=== PATIENT | female | born 1955 | race Caucasian/White ===

== ENCOUNTER 2023-12-24 13:13 | Emergency (ER) | payer OTHER, SELFPAY ==
[2023-12-24 13:17] VITALS: BP 138/71
[2023-12-24] MEDS: NSS 500 IV (14:59)
[2023-12-24 15:02] LABS: Urine Albumin Negative (Neg - Trace); Urine Bilirubin Negative (Negative); Urine Character Clear (Clear); Urine Color Yellow; Urine Glucose Negative (Negative); Urine Ketone Negative (Negative); Urine Leukocyte 1+ (Negative); Urine Nitrite Negative (Negative); Urine Occult Blood Negative (Negative); Urine Specific Gravity 1.015 (<1.030); Urine Urobilinogen Negative (Neg - 1+)
[2023-12-24 15:10] LABS: % Basophils 0.5 % (0-2); % Eosinophils 3.5 % (0-6); % Immature Granulocytes 0.7 % (0-0.5); % Lymphocytes 14.3 % (20.5-51.1); Absolute Basophils 0.1 10^3/uL (0-0.2); Absolute Eosinophils 0.4 10^3/uL (0-0.7); Absolute Immature Granulocytes 0.1 10^3/uL (0-0.05); Absolute Lymphocytes 1.5 10^3/uL (1.2-3.4); Absolute Monocytes 0.6 10^3/uL (0.1-0.6); Absolute Neutrophils 7.7 10^3/uL (1.4-6.5); Hematocrit 36.1 % (37.0-47.0); Hemoglobin 12.3 g/dL (12.0-16.0); Mean Corp Hgb Conc. 34.1 g/dL (33.0-37.0); Mean Corpuscular Hgb 28.8 pg (27.0-31.0); Mean Corpuscular Volume 84.5 fL (81.0-99.0); Mean Platelet Volume 9.7 fL (7.4-10.4); Nucleated Red Blood Cells % 0 %; Platelet Count 284 10^3/uL (130-400); Red Blood Cell Count 4.27 10^6/uL (4.20-5.40); Red Cell Dist. Width 13.2 % (11.5-14.5); White Blood Cell Count 10.3 10^3/uL (4.8-10.8)
[2023-12-24] MEDS: ZOFRAN 4 MG IV (15:15)
[2023-12-24 15:23] LABS: ALT (SGPT) 19 U/L (0-35); AST (SGOT) 26 U/L (14-36); Albumin 4.3 g/dl (3.5-5.0); Alkaline Phosphatase 74 U/L (38-126); Blood Urea Nitrogen 23 mg/dl (7-17); Calcium 9.6 mg/dl (8.4-10.2); Carbon Dioxide 31 mmol/L (22-30); Chloride 102 mmol/L (98-107); Glucose 103 mg/dl (70-99); Lipase 128 U/L (23-300); Potassium 3.4 mmol/L (3.5-5.1); Sodium 138 mmol/L (135-145); Total Bilirubin 0.5 mg/dl (0.2-1.3); Total Protein 7.1 g/dl (6.3-8.2); eGFR > 60.00
[2023-12-24 15:26] LABS: Urine Squamous Cell 16-20 /LPF (Few)
[2023-12-24 15:27] LABS: Urine Bacteria Few (Negative); Urine Red Blood Cell 0-2 /HPF (0-2)
[2023-12-24 17:00] VITALS: BP 130/78
--- NOTE | 2023-12-24 19:19 | ED.GENMED ---
History of Present Illness
General
Chief Complaint: Abdominal Symptoms
Source: patient and family
Exam Limitations: none
Time Seen by Provider: 12/24/23 13:58
Nursing documentation reviewed up to this point in time: agreed with
Travel History
Have you had any contact with someone who has COVID-19?: No
Do you have any symptoms of coronavirus? Fever > 100 degrees, chills, cough, shortness of breath, sore throat, loss of taste or smell, muscle aches, or headache?: No
History of Present Illness
History of Present Illness:
68-year-old female with past medical history of intermittent diarrhea over the past 3 weeks also noted some blood in the bowel does have some abdominal pain. Denies fevers chills
Past History
Past History
ED Past Medical History: Asthma, HTN and Other (Learning disability, speech impediment)
ED Past Surgical History: Orthopedic
Social History
Tobacco: Non-smoker
Alcohol: None
Drug: None
Personal: Other (Lives with her sister)
Living: with family
Family History
Family History: Other (Father with coronary disease and CABG, father with carotid endarterectomy and stroke, family history of dementia)
Review of Systems
Review of Systems
Allergies reviewed?: Yes
All Other Systems: ROS reviewed and negative except as documented in HPI and ROS
Phy Exam
Physical Exam
Physical Exam:
GENERAL: Alert , in no apparent distress
EYE: pupils equal and reactive
NECK: Supple, no significant adenopathy.
ENT: o/p clr, mmm.
CARDIAC: Regular rate and rhythm .
LUNGS: Clear breath sounds bilaterally, no acute respiratory distress, no wheezes/rales/rhonchi
ABDOMEN: Very minimal abdominal pain to palpation otherwise abdomen soft rectal examination light brown stool vaguely positive for guaiac small external hemorrhoids
NEUROLOGICAL: Alert and oriented, no focal neuro deficits
SKIN: Warm and dry, skin intact.
MUSCULOSKELETAL: No edema, well perfused.
PSYCH: Normal and appropriate interaction.
Course
Orders/Labs/Results
Orders:
Orders
12/24/23 14:16
0.9% Sodium Chloride 500 ml [Nss] 500 ml IV BOLUS
Ondansetron Injectable [Zofran] 4 mg IV NOW STA
12/24/23 14:17
CT Abd/Pel (IV only)-DH only Urgent
Comment:
Reason For Exam: abd pain diarrhea
12/24/23 14:45
Urinalysis Reflex To Culture Urgent
Date Specimen was Collected: 12/24/23
Time Specimen was Collected: 14:43
Urine Microscopic Reflex Cult Urgent
Urine Culture Urgent
JUAN DIEGO Source: U
Specimen Description:
Date Specimen was Collected: 12/24/23
Time Specimen was Collected: 14:43
12/24/23 14:54
Complete Blood Count/With Diff Urgent
Comprehensive Metabolic Panel Urgent
Lipase Urgent
12/24/23 15:31
Stool Culture Urgent
JUAN DIEGO Source: Feces/Stool
Specimen Description:
Date Specimen was Collected: 12/24/23
Time Specimen was Collected: 15:29
Abnormal Lab Results
12/24/23 12/24/23
14:45 14:54
Hct 36.1 L %
(37.0-47.0)
Abs Immat Gran (auto) 0.1 H 10^3/uL
(0-0.05)
Absolute Neuts (auto) 7.7 H 10^3/uL
(1.4-6.5)
Immature Gran % 0.7 H %
(0-0.5)
Lymphocytes % 14.3 L %
(20.5-51.1)
Potassium 3.4 L mmol/L
(3.5-5.1)
Carbon Dioxide 31 H mmol/L
(22-30)
BUN 23 H mg/dl
(7-17)
Glucose 103 H mg/dl
(70-99)
Leukocyte Esterase Rfl 1+ A
(Negative)
Urine Bacteria (Reflex) Few A
(Negative)
12/24/23 14:54
12/24/23 14:54
Vital Signs
Initial and Last Documented VS:
Initial Vital Signs
Temp Pulse Resp BP Pulse Ox
97.9 F 74 20 138/71 98
12/24/23 13:17 12/24/23 13:17 12/24/23 13:17 12/24/23 13:17 12/24/23 13:17
Last Documented Vital Signs
Temp Pulse Resp BP Pulse Ox
97.9 F 74 20 138/71 98
12/24/23 13:17 12/24/23 13:17 12/24/23 13:17 12/24/23 13:17 12/24/23 13:17
MDM/Problems Addressed
MDM/Problems Addressed:
68-year-old female presenting to the emergency department with diarrhea intermittently for 3 weeks reported some blood in the toilet bowl today but stool here is light brown in color very minimal pain to palpation comfortable throughout ER stay
vital signs normal no white count labs unremarkable urinalysis without signs of infection CT scan without emergent findings but incidental findings were discussed with the patient and her sister advised for close outpatient follow-up and GI
follow-up return precautions given.
*Critical Care Note
Total Time (30-74mins, 75-104mins- exclusive of procedures): Not Applicable
ED Attending Note
-
Portions of this chart may have been created with voice recognition software.� Occasional wrong word or��sound alike� substitutions may have occurred due to the inherent limitations of voice recognition software.
Discharge Plan
Departure
Patient Disposition: Home (Routine Discharge)
Date of Disposition: 12/24/23
Time of Disposition: 19:21
Patient with high blood pressure during this ER visit?: No
Condition: Good
Covid-19: Not Applicable
Discharge Problem:
Abdominal pain
Instructions: Abdominal Pain
Prescriptions:
No Action
levothyroxine 100 MCG tablet
100 mcg PO DAILY
alprazolam 0.25 MG tablet
0.25 mg PO BID
Patient Comments:
09/01/2022: last filled 08/30/22, 60 tabs for 30 days from [facility]
fluticasone propionate 1 SPRAY spray,suspension
1 spray intranasal DAILY
cholecalciferol (vitamin D3) [Vitamin D3] 2,000 UNIT capsule
2,000 unit PO DAILY
ipratropium-albuterol 3 ML solution for nebulization
3 ml inhalation R BID
Patient Comments:
0.5mg/3mg/3ml
cetirizine 10 MG tablet
10 mg PO HS
budesonide 0.5 MG/2 ML suspension for nebulization
0.5 mg inhalation R BID
Patient Comments:
pt states years ago
montelukast 10 MG tablet
10 mg PO HS
albuterol sulfate 1 PUFF HFA aerosol inhaler
2 puff inhalation R Q4 PRN (Reason: sob/wheezing)
Patient Comments:
pt states years ago
ascorbic acid (vitamin C) [Vitamin C] 500 MG tablet
1,000 mg PO DAILY Qty: 0
Women's 50 Plus Multivitamin 1 EACH tablet
1 ea PO DAILY
aspirin 81 mg tablet,delayed release (DR/EC)
81 mg PO DAILY
docusate sodium 100 mg Capsule
200 mg PO HS
losartan 100 mg tablet
100 mg PO DAILY
rosuvastatin 5 mg tablet
5 mg PO DAILY
metronidazole 1 % gel
1 applic TOPICAL HS
Rx Instructions:
to rash on buttocks
nebivolol 2.5 mg tablet
2.5 mg PO DAILY
docusate sodium 100 MG capsule
300 mg PO DAILY
chlorthalidone 25 mg tablet
25 mg PO DAILY
amlodipine 10 mg tablet
10 mg PO DAILY
acetaminophen 325 mg Tablet
650 mg PO Q4HPRN PRN (Reason: fever >/= 100.4F, LOWE,mild pain) Qty: 0 0RF
dexamethasone 6 mg tablet
6 mg PO DAILY Qty: 7 0RF
cephalexin 500 mg capsule
500 mg PO TID Qty: 21 0RF
Referrals:
Silvia Valdez MD [Active] - Follow up in 5-7 days
Dennys Santos MD [Family Provider] -
Activity Restrictions/Additional Instructions:
You came to the emergency department today with concerns of GI symptoms and diarrhea.. You had a reassuring evaluation with no emergent findings you did have incidental findings that should be followed up with an outpatient MRI otherwise please
follow close with the primary care doctor and GI over the next week or so for reassessment if symptoms are ongoing. Return to the emergency department for any worsening, new or concerning symptoms.
Interventions
Interventions:
ED- Fall Risk Assessment Last Done: 12/24/23 15:37
ET-Qcdoeb-Uddnvkbfpf Assessment Last Done: 12/24/23 15:37
Discharge Date and Time
Print Language: LUXEMBOURGISH
[2023-12-24 19:55] VITALS: BP 138/69
== END 2023-12-24 19:57 | disposition home or self-care (01) ==
LOC: EMR 13:13
PROVIDERS: Physician Assistant; EMERGENCY PHYSICIAN Emergency Medicine; FAMILY PHYSICIAN Internal Medicine
DX: R10.9 Unspecified abdominal pain (principal)
CPT/HCPCS: 99285; 96374; 96361; 74177; 80053; 81003; 81015; 83690; 85025; 87045; 87046; 87086; 87427; Q9967

== ENCOUNTER 2024-01-02 15:31 | Inpatient (IN) | payer OTHER, SELFPAY ==
[2023-12-30 20:24] VITALS: BP 128/71
[2023-12-30 20:46] VITALS: BP 132/75
[2023-12-30 21:04] LABS: % Basophils 0.5 % (0-2); % Eosinophils 2.6 % (0-6); % Immature Granulocytes 0.3 % (0-0.5); % Lymphocytes 10.6 % (20.5-51.1); Absolute Basophils 0.1 10^3/uL (0-0.2); Absolute Eosinophils 0.3 10^3/uL (0-0.7); Absolute Lymphocytes 1.3 10^3/uL (1.2-3.4); Absolute Monocytes 0.7 10^3/uL (0.1-0.6); Absolute Neutrophils 9.6 10^3/uL (1.4-6.5); Hematocrit 36.2 % (37.0-47.0); Hemoglobin 12.4 g/dL (12.0-16.0); Mean Corp Hgb Conc. 34.3 g/dL (33.0-37.0); Mean Corpuscular Hgb 28.4 pg (27.0-31.0); Mean Platelet Volume 9.5 fL (7.4-10.4); Nucleated Red Blood Cells % 0 %; Platelet Count 310 10^3/uL (130-400); Red Blood Cell Count 4.36 10^6/uL (4.20-5.40); Red Cell Dist. Width 13.4 % (11.5-14.5)
[2023-12-30 21:39] LABS: ALT (SGPT) 19 U/L (0-35); AST (SGOT) 28 U/L (14-36); Alkaline Phosphatase 86 U/L (38-126); Blood Urea Nitrogen 24 mg/dl (7-17); Calcium 9.8 mg/dl (8.4-10.2); Carbon Dioxide 28 mmol/L (22-30); Chloride 100 mmol/L (98-107); Glucose 110 mg/dl (70-99); Lipase 142 U/L (23-300); Potassium 3.7 mmol/L (3.5-5.1); Sodium 136 mmol/L (135-145); Total Bilirubin 0.6 mg/dl (0.2-1.3); Total Protein 7.4 g/dl (6.3-8.2); eGFR > 60.00
[2023-12-30 21:45] LABS: Albumin 4.5 g/dl (3.5-5.0)
[2023-12-30] MEDS: OMNIPAQUE 50 ML PO (21:51)
[2023-12-30 21:53] LABS: Urine Albumin Negative (Neg - Trace); Urine Bilirubin Negative (Negative); Urine Character Clear (Clear); Urine Color Yellow; Urine Glucose Negative (Negative); Urine Ketone Negative (Negative); Urine Leukocyte 2+ (Negative); Urine Nitrite Negative (Negative); Urine Occult Blood Negative (Negative); Urine Specific Gravity 1.015 (<1.030); Urine Urobilinogen Negative (Neg - 1+)
[2023-12-30 22:04] LABS: Urine Bacteria Few (Negative); Urine Red Blood Cell 0-2 /HPF (0-2); Urine White Cell 30-40 /HPF (0-5)
[2023-12-31] VITALS (7 sets, daily range): BP systolic 119–147; BP diastolic 59–84; PULSE 77–84; BMI 35.4
--- NOTE | 2023-12-31 00:57 | ED.GENMED ---
History of Present Illness
General
Chief Complaint: Abdominal Symptoms
Source: patient
Exam Limitations: none
Time Seen by Provider: 12/30/23 20:28
Nursing documentation reviewed up to this point in time: agreed with
Travel History
Have you had any contact with someone who has COVID-19?: No
Do you have any symptoms of coronavirus? Fever > 100 degrees, chills, cough, shortness of breath, sore throat, loss of taste or smell, muscle aches, or headache?: No
History of Present Illness
History of Present Illness:
Patient to ED with increasing weakness. Daughter states patient has had diarrhea for the past 4 weeks. She was seen in ED 1 week ago for same. Discharged home with GI follow up. GI recommending abdominal MRI however this has not been scheduled
yet. Daughter states patient has become progressively weaker over the past 24 hours. Brought to ED for eval
Past History
Past History
ED Past Medical History: Asthma, HTN and Other (Learning disability, speech impediment)
ED Past Surgical History: Orthopedic
Social History
Tobacco: Non-smoker
Alcohol: None
Drug: None
Personal: Other (Lives with her sister)
Living: with family
Family History
Family History: Other (Father with coronary disease and CABG, father with carotid endarterectomy and stroke, family history of dementia)
Review of Systems
Review of Systems
Allergies reviewed?: Yes
All Other Systems: ROS reviewed and negative except as documented in HPI and ROS
Constitutional: Reports no symptoms
EENT: Reports no symptoms
Respiratory: Reports no symptoms
Cardiac: Reports no symptoms
ABD/GI: Reports abdominal pain (diffuse), nausea and diarrhea
: Reports no symptoms
Musculoskeletal: Reports no symptoms
Skin: Reports no symptoms
Neurological: Reports weakness
Psychiatric: Reports no symptoms
Phy Exam
General Physical Exam
General Presentation: mild distress
General age: appears stated age
General Skin: warm
General Habitus: normal
General Mental: alert
Cardiovascular Exam
Cardiovascular Exam: regular rate/rhythm and no edema
Pulmonary Exam
Pulmonary Exam: lungs clear and no respiratory distress
Gastrointestinal Exam
Gastrointestinal Exam: normal bowel sounds, soft, no organomegaly, no pulsatile mass and no cva tenderness
Palpation: generalized: Moderate tenderness
Musculoskeletal Exam
Musculoskeletal Exam: full ROM and neuro vasc intact
Skin Exam
Skin Exam: normal color, warm/dry and no rash
Psychiatric Exam
Psychiatric Exam: normal mood/affect
Course
Orders/Labs/Results
Orders:
Orders
12/30/23 20:59
Complete Blood Count/With Diff Urgent
Comprehensive Metabolic Panel Urgent
Lipase Urgent
12/30/23 21:31
Urinalysis Reflex To Culture Urgent
Date Specimen was Collected: 12/30/23
Time Specimen was Collected: 21:31
Urine Microscopic Reflex Cult Urgent
Urine Culture Urgent
JUAN DIEGO Source: U
Specimen Description:
Date Specimen was Collected: 12/30/23
Time Specimen was Collected: 21:31
12/30/23 21:45
Iohexol [Omnipaque] See Protocol PO NOW STA
12/30/23 23:07
STOOL [C difficile Antigen & Toxins] Urgent
JUAN DIEGO Source: Feces/Stool
Specimen Description:
Date Specimen was Collected: 12/30/23
Time Specimen was Collected: 23:05
12/31/23 00:00
CT Abd/pel W Iv And Oral Contr Urgent
Reason For Exam: pain, diarrhea
12/31/23 02:29
Admit/Transfer Patient As Directed
Co-Sign Provider:
Level of Care: Observation services
Assign to:: Medical/Surgical
Physician / Group: hospitalist
Diagnosis: colitis
Reason for Hospitalization: colitis
12/31/23 02:32
Code Status As Directed
Resuscitation Status: Full Code
12/31/23 02:38
Ipratropium/Albuterol Sulfate [Duoneb] 3 ml INH R NOW STA
12/31/23 03:24
Acetaminophen [Tylenol] 650 mg PO Q4HPRN PRN
Albuterol [ProAIR HFA INHALER] 2 puff INH R Q4 PRN
Ondansetron Injectable [Zofran] 4 mg IV Q6HPRN PRN
12/31/23 03:24
Stool Culture Routine
JUAN DIEGO Source: Feces/Stool
Specimen Description:
Activity As Directed
Activity Level: With Assistance
Vital Signs As Directed
Frequency: Per unit guidelines
Cpap [RESP] Routine
Patient to use own unit?: Yes
Set Pressure (cm H2O): 5
DX Deep Vein Thrombosis Video Routine
12/31/23 Breakfast
Regular
At Your Request: Full Participation
Does patient need a safe tray?: No
Levothyroxine [Synthroid] 100 mcg PO DAILY @ 0600
12/31/23 07:25
Basic Metabolic Panel IN AM
Complete Blood Count/No Diff IN AM
12/31/23 08:00
Alprazolam [Xanax] 0.25 mg PO BID
Amlodipine [Norvasc] 10 mg PO DAILY
Aspirin Low Dose EC [Aspir Low (Enteric Coated)] 81 mg PO DAILY
Budesonide [Pulmicort] 0.5 mg INH R BID
Chlorthalidone [Hygroton] 25 mg PO DAILY
Cholecalciferol (Vitamin D3) [VITAMIN D3 (cholecalciferol)] 50 mcg PO DAILY
Losartan [Cozaar] 100 mg PO DAILY
Nebivolol HCl [Bystolic] 2.5 mg PO DAILY
Rosuvastatin Calcium [Crestor] 5 mg PO DAILY
fluticasone propionate 1 spray NASAL DAILY
12/31/23 18:00
Enoxaparin Sodium [Lovenox] 40 mg SC QPM
12/31/23 22:00
Cetirizine HCl [Zyrtec] 10 mg PO HS
Montelukast Sodium [Singulair] 10 mg PO HS
Abnormal Lab Results
12/30/23 12/30/23
20:59 21:31
WBC 12.0 H 10^3/uL
(4.8-10.8)
Hct 36.2 L %
(37.0-47.0)
Absolute Neuts (auto) 9.6 H 10^3/uL
(1.4-6.5)
Absolute Monos (auto) 0.7 H 10^3/uL
(0.1-0.6)
Neutrophils % 80.0 H %
(42.2-75.2)
Lymphocytes % 10.6 L %
(20.5-51.1)
BUN 24 H mg/dl
(7-17)
Glucose 110 H mg/dl
(70-99)
Leukocyte Esterase Rfl 2+ A
(Negative)
Urine WBC (Reflex) 30-40 A /HPF
(0-5)
Urine Bacteria (Reflex) Few A
(Negative)
12/30/23 20:59
12/30/23 20:59
Vital Signs
Initial and Last Documented VS:
Initial Vital Signs
Temp Pulse Resp BP Pulse Ox
97.6 F 74 16 128/71 96
12/30/23 20:24 12/30/23 20:24 12/30/23 20:24 12/30/23 20:24 12/30/23 20:24
Last Documented Vital Signs
Temp Pulse Resp BP Pulse Ox
97.6 F 64 18 121/65 97
12/31/23 08:01 12/31/23 11:32 12/31/23 11:32 12/31/23 08:01 12/31/23 10:16
*Radiology
Radiology exam reviewed: radiology read reviewed ('moderated rectosigmoid wall thickening suggestive of colitis. Severely dilate mid and distal appendix sugestive of mucocele of appendix)
*Critical Care Note
Total Time (30-74mins, 75-104mins- exclusive of procedures): Not Applicable
Update Note
Update Note:
labs, CT results discussed with patient and sister. Dr. Tran notified of CT findings via tiger text. Will admit to hospitalist with surgery consult. She has had diarrhea x 4 weeks. Specimen sent tonight to r/o cdiff, results pending. Will hold
off on initiating antibiotics at this time. Afebrile
ED Attending Note
-
Portions of this chart may have been created with voice recognition software.� Occasional wrong word or��sound alike� substitutions may have occurred due to the inherent limitations of voice recognition software.
Discharge Plan
Departure
Patient Disposition: Admit
Date of Disposition: 12/31/23
Time of Disposition: 01:22
Presentation/result/management discussed w/ accepting MD/DO: Hospitalist
Condition: Fair
Covid-19: Not Applicable
Discharge Problem:
Colitis, Mucocele of appendix
Interventions
Interventions:
*Risk Screen - Suicide Last Done: 12/31/23 03:46
*General Assessment Last Done: 12/30/23 20:24
ED- Fall Risk Assessment Last Done: 12/30/23 21:37
*ED COVID-19 Vaccine History Last Done: 12/30/23 20:24
*Nursing Disposition Last Done: 12/31/23 03:22
TT-Ariafy-Fyioqkxeft Assessment Last Done: 12/30/23 21:37
Discharge Date and Time
Discharge Date/Time: 12/31/23 03:22
--- NOTE | 2023-12-31 02:12 | HPS.HSE ---
Family Physician
-
Family Physician: Dennys Santos
Chief Complaint
-
Diarrhea and abdominal pain
History of Present Illness
Disease a 68-year-old female with past medical history of intellectual developmental delay, hypertension, hyperlipidemia, obesity, OKSANA on CPAP, asthma presenting to the emergency department with worsening episode of diarrhea.
Patient is a fairly poor historian but sister was at the bedside and a primary caregiver reports history of diarrhea for about 1 month. They report intermittent episodes of watery diarrhea about 2-3 times a day. The color is described as brown
without mucus. Occasionally found to have signs of blood in the commode. No melena. Patient is without nausea or vomiting. She is without any fevers or chills. No known sick contacts and no recent travels. She has been on azithromycin during
the winter for prevention of recurrent pneumonia. She denies any recent hospitalizations. She has no prior colonoscopies. Denies family history of inflammatory bowel disease or colon cancer. She was seen by GI (Dr. Connor) 2 weeks ago and a
colonoscopy as been scheduled for January 25. She is also been requested to get stool sample for analysis. Patient had a significant episode of diarrhea x 1 today and felt weak and tired afterwards. She was brought to the emergency department after
discussing with the GI doctor. She denies any dysuria, hematuria, urinary frequency urgency. She does have chronic stress incontinence.
On arrival in the emergency department she was afebrile, she was normotensive and in no acute distress. He had macrocytosis to 12,000 with normal CBC and blood count. Electrolytes and renal function are within normal limits. CT of the abdomen
pelvis showed rectosigmoid colitis versus proctitis. There was also an incidental finding of enlarged dilated appendix with calcifications that was previously seen and suggestive of mucocele. UA with positive WBCs and few bacteria.
Medical History
Past Medical History
Past Medical History: Reports HTN, Hypothyroidism and Other
Additional Past Medical History:
HLD
IDD
OKSANA on CPAP
Asthma/
[id number]-[id number] deficiency
IBS
Gout
GERD
Past Surgical History: Reports None
Social History
Unable to obtain full social history at this time due to: Other (Intellectual developmental delay)
Tobacco: Non-smoker
Alcohol: None
Drug: None
Personal: Single
Living: With Family
Employment: Disabled
Family History
Family History: Hypertension
Allergies / Home Medications
Allergies reflects when Allergies were last updated in [facility].
Home Medications with original date entered in [facility]
Allergy/Medication List:
Allergies
Allergy/AdvReac Type Severity Reaction Status Date / Time
amoxicillin [From Augmentin] Allergy Unknown Verified 12/24/23 13:16
citric acid* Allergy Rash Verified 12/24/23 13:16
clarithromycin [From Biaxin] Allergy Unknown Verified 12/24/23 13:16
clavulanic acid Allergy Unknown Verified 12/24/23 13:16
[From Augmentin]
codeine Allergy Unknown Verified 12/24/23 13:16
lisinopril Allergy Anaphylaxis, Verified 12/24/23 13:16
Angioedema
Penicillins Allergy SEE BELOW Verified 12/24/23 13:16
Tetracyclines Allergy Unknown Verified 12/24/23 13:16
tomato [Tomato] Allergy Hives Verified 12/24/23 13:16
Home Medications
levothyroxine 100 mcg tablet 100 mcg PO DAILY Thyroid 02/10/13
alprazolam 0.25 mg tablet 0.25 mg PO BID Mental Health/Anxiety 11/15/17
cholecalciferol (vitamin D3) 50 mcg (2,000 unit) capsule (Vitamin D3) 2,000 unit PO DAILY Supplement 11/15/17
fluticasone propionate 50 mcg/actuation nasal spray,suspension 1 spray intranasal DAILY Lung/breathing issues 11/15/17
budesonide 0.5 mg/2 mL suspension for nebulization 0.5 mg inhalation R BID Lung/breathing issues 10/19/19
cetirizine 10 mg tablet 10 mg PO HS Allergies 10/19/19
ipratropium 0.5 mg-albuterol 3 mg (2.5 mg base)/3 mL nebulization soln 3 ml inhalation R BID Lung/breathing issues 10/19/19
montelukast 10 mg tablet 10 mg PO HS Lung/breathing issues 10/19/19
albuterol sulfate 90 mcg/actuation aerosol inhaler 2 puff inhalation R Q4 PRN sob/wheezing 07/10/20
ascorbic acid (vitamin C) 500 mg tablet (Vitamin C) 1,000 mg PO DAILY Supplement ##0 07/10/20
nycvgdbl-tbo-omdmp ac 400 mcg-calcium carb 500 mg-vit K1 20 mcg tablet (Women's 50 Plus Multivitamin) 1 ea PO DAILY Supplement 05/12/21
amlodipine 10 mg tablet 10 mg PO DAILY Blood pressure 09/01/22
aspirin 81 mg tablet,delayed release 81 mg PO DAILY Blood clot prevention/tx 09/01/22
chlorthalidone 25 mg tablet 25 mg PO DAILY Blood pressure 09/01/22
docusate sodium 100 mg capsule 200 mg PO HS Constipation 09/01/22
docusate sodium 100 mg capsule 300 mg PO DAILY Constipation 09/01/22
losartan 100 mg tablet 100 mg PO DAILY Blood pressure 09/01/22
metronidazole 1 % topical gel 1 applic topical HS Skin issues 09/01/22
nebivolol 2.5 mg tablet 2.5 mg PO DAILY Heart disease/condition 09/01/22
rosuvastatin 5 mg tablet 5 mg PO DAILY High cholesterol 09/01/22
acetaminophen 325 mg tablet 650 mg (2 x 325 mg) PO Q4HPRN PRN fever >/= 100.4F, LOWE,mild pain #0 tabs 09/04/22
cephalexin 500 mg capsule 500 mg PO TID #21 caps 09/04/22
dexamethasone 6 mg tablet 6 mg PO DAILY #7 tabs 09/04/22
Review of Systems
-
History Source: Patient and Family
Constitutional: Reports No Symptoms
EENT: Reports No Symptoms
Respiratory: Reports No Symptoms
Cardiac: Reports No Symptoms
Abdomen/GI: Reports Diarrhea
: Reports No Symptoms
Musculoskeletal: Reports No Symptoms
Skin: Reports No Symptoms
Neurological: Reports No Symptoms
Endocrine: Reports No Symptoms
Hematologic/Lymphatic: Reports No Symptoms
Psych: Reports No Symptoms
Physical Exam
Vital Signs
Vital Signs
Temp Pulse Resp BP Pulse Ox
97.6 F 66 13 132/75 94
12/30/23 20:24 12/31/23 00:15 12/31/23 00:15 12/30/23 20:46 12/31/23 00:15
Physical Exam
General: Well Developed, Well Nourished and Comfortable
HEENT: NormoCephalic, Moist mucous membranes, Atraumatic and PERRLA
Respiratory: Clear
Cardiac: S1/S2 and Regular Rhythm
Breast: Deferred by me
GI: Soft, Non Tender, Normal Bowel Sounds and Distended
Rectal: Deferred by Provider
Genito-urinary: No costovertebral tender
Musculoskeletal: No Clubbing, No Cyanosis and No Edema
Skin: Warm and Rash
Neuro: Awake, Alert and Oriented
Hematologic/Lymphatic: No Lymphadenopathy
Psych: Calm
Laboratory Results
-
12/30/23 20:59
12/30/23 20:59
Laboratory Results
Total Bilirubin 0.6 mg/dl (0.2-1.3) 12/30/23 20:59
AST 28 U/L (14-36) 12/30/23 20:59
ALT 19 U/L (0-35) 12/30/23 20:59
Alkaline Phosphatase 86 U/L (38-126) 12/30/23 20:59
Lipase 142 U/L (23-300) 12/30/23 20:59
Data Reviewed
-
CT Scan: Report Reviewed by me
Lab Data: Labs Reviewed by me
Old Records: Reviewed
Impression/Plan
-
IMPRESSION:
PLAN:
1. Diarrhea - Subacute (1 month) episode of intermittent watery diarrhea. Non-toxic appearing today. Euvolemic. Rectosigmoid colitis seen on CT. Infectious vs inflammatory diarrhea. Chronic azithromycin use over the winter but no admissions.
No diarrhea in ED.
- admit to observation
- check cdiff and stool culture
- well appearing and euvolemic, no iv fluids, no abx
- if cdiff & stool culture is negative, GI consultation
2. Appendix mucocele - No signs of acute appendicitis. No abdominal pain nausea/vomiting
- awaiting comment from colorectal surgery, no indication for urgent consultation
3. Positive u/a but no acute symptoms
- hold off on any abx treatment.
4. HTN
- continue patients home losartan, chlorthalidone, nebivolol and amlodipine
5. Asthma
- inhaled steroids and nebs per home regimen
- montelukast
6. OKSANA
- cpap hs
DVT PPX - lovenox sq
Full code
[2023-12-31] MEDS: DUONEB 3 ML INH (02:43)
--- NOTE | 2023-12-31 05:48 | PTCARENOTE ---
Patient arrived on unit @0320 via stretcher from ED, ambulate to bed. Patient AAOx2, sister in room with patient, denies any pain or discomfort. Med rec completed, skin assessment completed, oriented to unit, call stringer within reach.
[2023-12-31] MEDS: SYNTHROID 100 MCG PO (06:18)
[2023-12-31] MEDS: PULMICORT 0.5 MG INH ×2 (07:33→19:27)
[2023-12-31] MEDS: ProAIR HFA INHALER 2 PUFF INH (07:39)
[2023-12-31] MEDS: NORVASC 10 MG PO (07:51)
[2023-12-31] MEDS: XANAX 0.25 MG PO ×2 (07:51→20:14)
[2023-12-31] MEDS: BYSTOLIC 2.5 MG PO (07:51)
[2023-12-31] MEDS: ASPIR LOW (ENTERIC COATED) 81 MG PO (07:51)
[2023-12-31] MEDS: VITAMIN D3 (cholecalciferol) 50 MCG PO (07:51)
[2023-12-31] MEDS: Hygroton 25 MG PO (07:51)
[2023-12-31] MEDS: CRESTOR 5 MG PO (07:51)
[2023-12-31] MEDS: COZAAR 100 MG PO (07:51)
[2023-12-31 08:19] LABS: Hematocrit 35.4 % (37.0-47.0); Hemoglobin 11.7 g/dL (12.0-16.0); Mean Corp Hgb Conc. 33.1 g/dL (33.0-37.0); Mean Corpuscular Hgb 28.1 pg (27.0-31.0); Mean Corpuscular Volume 85.1 fL (81.0-99.0); Mean Platelet Volume 10.2 fL (7.4-10.4); Platelet Count 306 10^3/uL (130-400); Red Blood Cell Count 4.16 10^6/uL (4.20-5.40); Red Cell Dist. Width 13.5 % (11.5-14.5); White Blood Cell Count 8.8 10^3/uL (4.8-10.8)
[2023-12-31 08:54] LABS: Blood Urea Nitrogen 21 mg/dl (7-17); Calcium 9.8 mg/dl (8.4-10.2); Carbon Dioxide 28 mmol/L (22-30); Chloride 100 mmol/L (98-107); Estimated Creatinine Clearance 54 ml/min; Glucose 100 mg/dl (70-99); Potassium 3.8 mmol/L (3.5-5.1); Sodium 137 mmol/L (135-145); eGFR > 60.00
--- NOTE | 2023-12-31 09:52 | CON.CRS ---
Consultation
-
Date/Time Consultation Requested: 12/31/23
Requesting Provider: Emy
Performing Provider: Rubin Tran
Reason for Consultation: Colitis ischemic eval
Medical History
-
Chief Complaint: Diarrhea
History of Present Illness:
Ms Guo is a 68 yo female with a history of HTN and intellectual disability who lives with her sister and is seen in evaluation today at bedside with her Aunt and sister. She presents with fatigue and one month history of diarrhea. At baseline, her
sister reports that she is normally constipated and takes multiple laxatives until this past month when she developed persistent diarrhea, occasionally blood tinged. She has been following with Dr. Connor as an outpatient with colonoscopy (her
first) scheduled in mid January as well as MRI in work up for abdominal mass first noted on imaging in 2021. She has had cologuard screening in the past which was reportedly negative. 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
respiratory infections although C-diff on admission is negative. She has reported weight loss of 10lbs this month and has been maintained mostly on the BRAT diet with Imodium prn. She had one episode of nausea last week prompting a visit to the ER
and has had intermittent complaints of mild abdominal pain bilaterally. Although she gestures to the left side when indicating pain she is mildly tender to both lower quadrants.
Past Medical History
Past Medical History: HTN and Hypercholesterolemia
Past Surgical History: Orthopedic (left TSA, right TKA)
Social History
Tobacco: Non-Smoker
Alcohol: None
Living: With Family
Employment: Disabled
Family History
Family History: Reviewed & Not Pertinent
Allergies / Home Medications
Allergy/AdvReac Type Severity Reaction Status Date / Time
amoxicillin [From Augmentin] Allergy Unknown Verified 12/24/23 13:16
citric acid* Allergy Rash Verified 12/24/23 13:16
clarithromycin [From Biaxin] Allergy Unknown Verified 12/24/23 13:16
clavulanic acid Allergy Unknown Verified 12/24/23 13:16
[From Augmentin]
codeine Allergy Unknown Verified 12/24/23 13:16
lisinopril Allergy Anaphylaxis, Verified 12/24/23 13:16
Angioedema
Penicillins Allergy SEE BELOW Verified 12/24/23 13:16
Tetracyclines Allergy Unknown Verified 12/24/23 13:16
tomato [Tomato] Allergy Hives Verified 12/24/23 13:16
�Medication �Instructions �Recorded �Confirmed �Type
levothyroxine 100 mcg tablet 100 mcg PO DAILY Thyroid 02/10/13 12/31/23 History
alprazolam 0.25 mg tablet 0.25 mg PO BID Mental 11/15/17 12/31/23 History
Health/Anxiety
cholecalciferol (vitamin D3) 50 2,000 unit PO DAILY Supplement 11/15/17 12/31/23 History
mcg (2,000 unit) capsule (Vitamin
D3)
fluticasone propionate 50 1 spray intranasal DAILY 11/15/17 12/31/23 History
mcg/actuation nasal Lung/breathing issues
spray,suspension
budesonide 0.5 mg/2 mL suspension 0.5 mg inhalation R BID 10/19/19 12/31/23 History
for nebulization Lung/breathing issues
cetirizine 10 mg tablet 10 mg PO HS Allergies 10/19/19 12/31/23 History
ipratropium 0.5 mg-albuterol 3 mg 3 ml inhalation R BID 10/19/19 12/31/23 History
(2.5 mg base)/3 mL nebulization Lung/breathing issues
soln
montelukast 10 mg tablet 10 mg PO HS Lung/breathing issues 10/19/19 12/31/23 History
albuterol sulfate 90 mcg/actuation 2 puff inhalation R Q4 PRN 07/10/20 12/31/23 History
aerosol inhaler sob/wheezing
ascorbic acid (vitamin C) 500 mg 1,000 mg PO DAILY Supplement ##0 07/10/20 12/31/23 History
tablet (Vitamin C)
sdwmexax-btc-jnhzc ac 400 1 ea PO DAILY Supplement 05/12/21 12/31/23 History
mcg-calcium carb 500 mg-vit K1 20
mcg tablet (Women's 50 Plus
Multivitamin)
amlodipine 10 mg tablet 10 mg PO DAILY Blood pressure 09/01/22 12/31/23 History
aspirin 81 mg tablet,delayed 81 mg PO DAILY Blood clot 09/01/22 12/31/23 History
release prevention/tx
chlorthalidone 25 mg tablet 25 mg PO DAILY Blood pressure 09/01/22 12/31/23 History
docusate sodium 100 mg capsule 200 mg PO HS Constipation 09/01/22 12/31/23 History
docusate sodium 100 mg capsule 300 mg PO DAILY Constipation 09/01/22 12/31/23 History
losartan 100 mg tablet 100 mg PO DAILY Blood pressure 09/01/22 12/31/23 History
metronidazole 1 % topical gel 1 applic topical HS Skin issues 09/01/22 12/31/23 History
nebivolol 2.5 mg tablet 2.5 mg PO DAILY Heart 09/01/22 12/31/23 History
disease/condition
rosuvastatin 5 mg tablet 5 mg PO DAILY High cholesterol 09/01/22 12/31/23 History
acetaminophen 325 mg tablet 650 mg (2 x 325 mg) PO Q4HPRN PRN 09/04/22 12/31/23 Rx
fever >/= 100.4F, LOWE,mild pain #0
tabs
cephalexin 500 mg capsule 500 mg PO TID #21 caps 09/04/22 12/31/23 Rx
dexamethasone 6 mg tablet 6 mg PO DAILY #7 tabs 09/04/22 12/31/23 Rx
dicyclomine 20 mg tablet 20 mg PO BID 12/31/23 12/31/23 History
Review of Systems
-
History Source: Patient and Family
All other systems: Negative unless noted
A 10 point review of systems was completed, and was negative except as per HPI.
Physical Exam
Vital Signs
Temp 97.6 F 12/31/23 08:01
Pulse 79 12/31/23 08:01
Resp Rate 16 12/31/23 08:01
Blood pressure 121/65 12/31/23 08:01
SaO2 97 12/31/23 08:01
12/30/23 12/31/23 01/01/24
06:59 06:59 06:59
Actual Weight 76.771 kg
Body Mass Index (BMI) 35.4
Lab Results / Allergies
12/31/23 07:25
12/31/23 07:25
WBC 8.8 10^3/uL (4.8-10.8) 12/31/23 07:25
Hgb 11.7 g/dL (12.0-16.0) L 12/31/23 07:25
Hct 35.4 % (37.0-47.0) L 12/31/23 07:25
Plt Count 306 10^3/uL (130-400) 12/31/23 07:25
Abs Immat Gran (auto) 0.0 10^3/uL (0-0.05) 12/30/23 20:59
Neutrophils % 80.0 % (42.2-75.2) H 12/30/23 20:59
Allergy/AdvReac Type Severity Reaction Status Date / Time
amoxicillin [From Augmentin] Allergy Unknown Verified 12/24/23 13:16
citric acid* Allergy Rash Verified 12/24/23 13:16
clarithromycin [From Biaxin] Allergy Unknown Verified 12/24/23 13:16
clavulanic acid Allergy Unknown Verified 12/24/23 13:16
[From Augmentin]
codeine Allergy Unknown Verified 12/24/23 13:16
lisinopril Allergy Anaphylaxis, Verified 12/24/23 13:16
Angioedema
Penicillins Allergy SEE BELOW Verified 12/24/23 13:16
Tetracyclines Allergy Unknown Verified 12/24/23 13:16
tomato [Tomato] Allergy Hives Verified 12/24/23 13:16
Physical Exam
General: Well Developed, Well Nourished and No Apparent Distress
HEENT: Moist Mucous Membranes
Respiratory: Non Labored Respirations
GI: Soft and Tender (mildly tender to the lower quadrants)
Skin: Warm and Dry
Neuro: Awake, Alert and AO x 3
Psych: Calm
Data Reviewed
-
CT Scan: Image Personally Visualized and interpreted, Report Reviewed by me, Discussed with Physician, Discussed with Patient and Discussed with Family
Labs: Labs Reviewed by me, Discussed with Physician, Discussed with Patient and Discussed with Family
Old Records: Reviewed
Assessment / Plan
-
68 yo female presenting with ongoing diarrhea x1 month with unplanned weight loss and increasing fatigue. Undergoing GI work up as an outpatient with colonoscopy planned in mid January and MRI for pelvic mass work up. Prior Cologuard study reportedly
negative remotely but has never had a colonoscopy. Unplanned weight loss of 10 lbs in the last few weeks noted. Stool studies thus far negative. Leukocytosis present on admission now resolved. CT imaging with several abnormal findings including
concern for proctocolitis and appendicial mucocele with adjacent calcified mass abutting the uterus and bladder with pelvic lymphadenopathy. Inflammatory etiology suspected with possible underlying malignant pathology. Low suspicion for ischemic
colitis given imaging and exam.
--Recommend GI consultation, known to Dr. Connor
--Will check tumor markers: CEA, AFP, Ca125
--Ok to continue regular diet from surgical perspective as she is tolerating this
--No emergent surgery planned today although may need future surgical intervention pending outpatient diagnostic work up
[2023-12-31] MEDS: VENTOLIN NEBULES 2.5 MG INH ×2 (11:31→19:27)
--- NOTE | 2023-12-31 14:53 | CON.GI ---
Consultation
-
Date/Time Consultation Requested: 12/31/2023
Date/Time Consultation Performed: 12/31/2023
Requesting Provider: Dr. De La O
Performing Provider: Dr. Murillo
Reason for Consultation: Diarrhea
Medical History
Chief Complaint / HPI
Chief Complaint: Diarrhea
History of Present Illness:
68-year-old female with history of hypertension, asthma, learning disability presenting with ongoing diarrhea symptoms for last month, was in the emergency room 12/24/2023 for similar episode-diarrhea and some trace amounts of blood in the stool,
rectal exam, light brown stool with trace guaiac positive, stool culture at that time was negative, she was hemodynamically stable and was asked to see GI as an outpatient. Blood work consistent for hemoglobin 12.3, normal white blood cell count,
potassium 3.4. Stool culture was negative, no C. difficile was checked. She was then seen by Dr. Griffin as an outpatient and was scheduled to have a colonoscopy on the . She continued to have diarrhea and came back to the emergency room. In
the ER, C. difficile testing was negative, labs otherwise unremarkable. She did have CT scan of the abdomen and pelvis with IV and oral contrast that showed moderate to severe acute proctocolitis on the sigmoid colon and rectum, increased since
. 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 Large 6.4 similar calcified mass in the right lower quadrant causing extrinsic mass effect, rule out
leukemia versus eccentric tumor. She was supposed to get an outpatient MRI for this but was waiting for the prior authorization.
2 months ago, she was dealing with episodes of pneumonia with cough and wheezing, was put on azithromycin 3 times a week for about 4 months and stopped on December 13 and she was feeling better. Her baseline bowel pattern was slightly on the
constipation side, she was taking 4 Colace a day and send I would immediately be effective. No pushing, straining, blood in the stool. No abdominal pain, nausea, vomiting, heartburn or trouble swallowing.
Recently she has been having about 5 bowel movements are watery with some intermittent blood, no nocturnal episodes. Some mucus and some blood. Loss of 9 pounds in the last 2 weeks.
She was seen by colorectal surgery for For appendiceal mucocele, no plan for urgent surgery.
She has learning disability and lives with her sister and 11 month old baby living in same house (sister's grandkid) had loose stools same time. No new meds. Not travel.
�������Has been doing Cologuard time 3 years ago. She attempted a colonoscopy 15-20 years ago but became so dehydrated had to go to ER and never attempted to again.
�������Sister is her POA (usually both patient/sister sign consent).
�������CT in ER 12/2023:
�������1).There is a 5.8 cm calcified mesenteric mass in the upper mid pelvis which is seen in retrospect on the booth supervisor view of the 12/15/2021 CT of the lumbar spine has not significantly changed suggesting that it is benign. It is associated with a
tubular rim calcified lesion in the right hemipelvis. 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
�������There is a similar-appearing 5.7 cm calcified mass in the left adnexa.
�������Nonemergent MRI may be useful for further evaluation.
�������2).Imaging for bowel pathology is limited by the lack of enteric contrast. If there is clinical suspicion for bowel pathology, this study could be repeated with enteric contrast.
�������3).There is an 8 mm pulmonary nodule at the posterior lateral left lower lobe which is stable. With image 38 series 4 10/02/2021 examination suggesting that it is benign
�������4). Multilevel lumbar degenerative disc disease.
Past Medical History
Past Medical History: Asthma, HTN, Hypothyroidism and Other (Learning disability)
Past Surgical History: Other (Shoulder replacement and right knee placement)
Social History
Tobacco: Non-Smoker
Alcohol: None
Family History
Family History: Reviewed & Not Pertinent
Allergies / Home Medications
Allergy/AdvReac Type Severity Reaction Status Date / Time
amoxicillin [From Augmentin] Allergy Unknown Verified 12/24/23 13:16
citric acid* Allergy Rash Verified 12/24/23 13:16
clarithromycin [From Biaxin] Allergy Unknown Verified 12/24/23 13:16
clavulanic acid Allergy Unknown Verified 12/24/23 13:16
[From Augmentin]
codeine Allergy Unknown Verified 12/24/23 13:16
lisinopril Allergy Anaphylaxis, Verified 12/24/23 13:16
Angioedema
Penicillins Allergy SEE BELOW Verified 12/24/23 13:16
Tetracyclines Allergy Unknown Verified 12/24/23 13:16
tomato [Tomato] Allergy Hives Verified 12/24/23 13:16
�Medication �Instructions �Recorded
levothyroxine 100 mcg tablet 100 mcg PO DAILY Thyroid 02/10/13
alprazolam 0.25 mg tablet 0.25 mg PO BID Mental 11/15/17
Health/Anxiety
cholecalciferol (vitamin D3) 50 2,000 unit PO DAILY Supplement 11/15/17
mcg (2,000 unit) capsule (Vitamin
D3)
fluticasone propionate 50 1 spray intranasal DAILY 11/15/17
mcg/actuation nasal Lung/breathing issues
spray,suspension
budesonide 0.5 mg/2 mL suspension 0.5 mg inhalation R BID 10/19/19
for nebulization Lung/breathing issues
cetirizine 10 mg tablet 10 mg PO HS Allergies 10/19/19
ipratropium 0.5 mg-albuterol 3 mg 3 ml inhalation R BID 10/19/19
(2.5 mg base)/3 mL nebulization Lung/breathing issues
soln
montelukast 10 mg tablet 10 mg PO HS Lung/breathing issues 10/19/19
albuterol sulfate 90 mcg/actuation 2 puff inhalation R Q4 PRN 07/10/20
aerosol inhaler sob/wheezing
ascorbic acid (vitamin C) 500 mg 1,000 mg PO DAILY Supplement ##0 07/10/20
tablet (Vitamin C)
qmswqftd-opx-tohew ac 400 1 ea PO DAILY Supplement 05/12/21
mcg-calcium carb 500 mg-vit K1 20
mcg tablet (Women's 50 Plus
Multivitamin)
amlodipine 10 mg tablet 10 mg PO DAILY Blood pressure 09/01/22
aspirin 81 mg tablet,delayed 81 mg PO DAILY Blood clot 09/01/22
release prevention/tx
chlorthalidone 25 mg tablet 25 mg PO DAILY Blood pressure 09/01/22
docusate sodium 100 mg capsule 200 mg PO HS Constipation 09/01/22
docusate sodium 100 mg capsule 300 mg PO DAILY Constipation 09/01/22
losartan 100 mg tablet 100 mg PO DAILY Blood pressure 09/01/22
metronidazole 1 % topical gel 1 applic topical HS Skin issues 09/01/22
nebivolol 2.5 mg tablet 2.5 mg PO DAILY Heart 09/01/22
disease/condition
rosuvastatin 5 mg tablet 5 mg PO DAILY High cholesterol 09/01/22
acetaminophen 325 mg tablet 650 mg (2 x 325 mg) PO Q4HPRN PRN 09/04/22
fever >/= 100.4F, LOWE,mild pain #0
tabs
cephalexin 500 mg capsule 500 mg PO TID #21 caps 09/04/22
dexamethasone 6 mg tablet 6 mg PO DAILY #7 tabs 09/04/22
dicyclomine 20 mg tablet 20 mg PO BID 12/31/23
Review of Systems
-
All other systems: A 12 pt ROS was Negative except as stated above in HPI
Vital Signs
Temp Pulse Resp BP Pulse Ox
97.6 F 64 18 121/65 97
12/31/23 08:01 12/31/23 11:32 12/31/23 11:32 12/31/23 08:01 12/31/23 10:16
Physical Exam
Exam
General: Well Developed
HEENT: Normocephalic
Respiratory: Clear
Cardiac: S1/S2 and Regular Rhythm
GI: Soft, Non Distended, Normal Bowel Sounds and Other (Some discomfort bilateral lower quadrants without any guarding or rigidity)
Results
WBC 8.8 10^3/uL (4.8-10.8) 12/31/23 07:25
Hgb 11.7 g/dL (12.0-16.0) L 12/31/23 07:25
Hct 35.4 % (37.0-47.0) L 12/31/23 07:25
MCV 85.1 fL (81.0-99.0) 12/31/23 07:25
Plt Count 306 10^3/uL (130-400) 12/31/23 07:25
Absolute Neuts (auto) 9.6 10^3/uL (1.4-6.5) H 12/30/23 20:59
Sodium 137 mmol/L (135-145) 12/31/23 07:25
Potassium 3.8 mmol/L (3.5-5.1) 12/31/23 07:25
Chloride 100 mmol/L (98-107) 12/31/23 07:25
Carbon Dioxide 28 mmol/L (22-30) 12/31/23 07:25
BUN 21 mg/dl (7-17) H 12/31/23 07:25
Creatinine 0.9 mg/dL (0.6-1.0) 12/31/23 07:25
Calcium 9.8 mg/dl (8.4-10.2) 12/31/23 07:25
Total Bilirubin 0.6 mg/dl (0.2-1.3) 12/30/23 20:59
AST 28 U/L (14-36) 12/30/23 20:59
ALT 19 U/L (0-35) 12/30/23 20:59
Alkaline Phosphatase 86 U/L (38-126) 12/30/23 20:59
Lipase 142 U/L (23-300) 12/30/23 20:59
Diagnostic Image Results:
Prior GI Procedures:
EGD:
Colonoscopy:
Assessment / Plan
-
68-year-old female with history of hypertension, high cholesterol, hypothyroidism, learning disability, history of pneumonia status post antibiotic use up until December 2023 presenting with diarrhea in the last 1 month, stool cultures negative
previously, CT scan of the abdomen and pelvis with contrast showing severe proctocolitis also appendiceal mucocele apart from calcified mass in the right lower quadrant.
-Diarrhea and severe proctocolitis
Rule out infectious versus inflammatory versus other
No previous colonoscopies or Cologuard negative as per patient in the past
Stool C. difficile negative, culture, fecal calprotectin and white count pending
Plan for colonoscopy 01/02/2024 as patient already had breakfast and lunch today. Will keep her on clear liquid diet with MiraLAX prep
Treatment based on the pathology results
Noted tumor markers ordered by surgery to rule out neuroendocrine tumor findings of appendiceal mucocele Versus other
Eventual pelvic MRI after colonoscopy for the pelvic mass that was noted on CT scan.
Will follow
-
-
Thank you for consultation and allowing me to participate in the patient's care. Please call the summer sessions director GI physician during the after hours with any questions or concerns.
--- NOTE | 2023-12-31 16:45 | W.PN.HOSP.TC ---
Today's Communication/Plan
-
Colonoscopy as per GI
Okay for Regular Diet today, Clear Liquid Diet tomorrow
No surgery needed at this time
Assessment / Plan
Assessment / Plan
Physical Exam
General: Not in acute distress
HEENT: Normocephalic, Moist mucous membranes
Respiratory: Clear to Auscultation Bilaterally
Cardiac: S1/S2 and Regular Rhythm
GI: Soft, Normal Bowel Sounds and Distended. Mild tenderness in the lower quadrants.
Musculoskeletal: No Cyanosis and No Edema
Skin: Warm and Rash
Neuro: Awake, Alert and Oriented
Psych: Calm

Assessment/Plan
#Diarrhea - Subacute (1 month) episode of intermittent watery diarrhea.
#Severe proctocolitis
- Was undergoing GI work up as an outpatient with colonoscopy planned in mid January and MRI for pelvic mass work up.
- As per surgery, 'CT imaging with several abnormal findings including concern for proctocolitis and appendicial mucocele with adjacent calcified mass abutting the uterus and bladder with pelvic lymphadenopathy. Inflammatory etiology suspected with
possible underlying malignant pathology. Low suspicion for ischemic colitis given imaging and exam.'
- Tumor markers were ordered by surgery to rule out neuroendocrine tumor findings of appendiceal mucocele Versus other
- Pelvic MRI after colonoscopy for pelvic mass on CT imaging
- Consulted GI after discussion with surgery -- patient is known to Dr. Connor
- Colonoscopy to help figure out the diagnosis
#Appendix mucocele
- Not acute appendicitis
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
- Rumor markers including CEA, CA125, AFP, chromogranin a, serotonin
#Positive u/a but no acute symptoms
- hold off on any abx treatment.
#HTN
- continue patients home losartan, chlorthalidone, nebivolol and amlodipine
#Asthma
- inhaled steroids and nebs per home regimen
- montelukast
#OKSANA
- cpap hs
DVT PPX - lovenox sq
Full code
Anticipated Discharge: > 48 hours
Subjective/Interval History
-
Date of Service: December 31, 2023
Patient was seen and examined. She reported some lower abdominal pain, but otherwise denied any other new significant symptoms.
Objective Data
-
Labs:
Laboratory Results
12/31/23
07:25
WBC 8.8
Hgb 11.7 L
Hct 35.4 L
Plt Count 306
Sodium 137
Potassium 3.8
Chloride 100
Carbon Dioxide 28
BUN 21 H
Creatinine 0.9
Glucose 100 H
Calcium 9.8
Vital Signs:
Vital Signs
Temp Pulse Resp BP Pulse Ox
98.0 F 77 14 119/59 98
12/31/23 15:28 12/31/23 15:28 12/31/23 15:28 12/31/23 15:28 12/31/23 15:28
[2023-12-31] MEDS: LOVENOX 40 MG SC (17:11)
[2023-12-31] MEDS: ZYRTEC 10 MG PO (21:09)
[2023-12-31] MEDS: SINGULAIR 10 MG PO (21:09)
[2024-01-01 06:19] LABS: Hematocrit 31.8 % (37.0-47.0); Hemoglobin 10.7 g/dL (12.0-16.0); Mean Corp Hgb Conc. 33.6 g/dL (33.0-37.0); Mean Corpuscular Hgb 28.7 pg (27.0-31.0); Mean Corpuscular Volume 85.3 fL (81.0-99.0); Mean Platelet Volume 9.9 fL (7.4-10.4); Platelet Count 265 10^3/uL (130-400); Red Blood Cell Count 3.73 10^6/uL (4.20-5.40); Red Cell Dist. Width 13.4 % (11.5-14.5); White Blood Cell Count 7.2 10^3/uL (4.8-10.8)
[2024-01-01] MEDS: SYNTHROID 100 MCG PO (06:19)
[2024-01-01 06:47] LABS: ALT (SGPT) 16 U/L (0-35); AST (SGOT) 23 U/L (14-36); Albumin 3.7 g/dl (3.5-5.0); Alkaline Phosphatase 74 U/L (38-126); Blood Urea Nitrogen 18 mg/dl (7-17); Calcium 9.2 mg/dl (8.4-10.2); Carbon Dioxide 31 mmol/L (22-30); Chloride 99 mmol/L (98-107); Estimated Creatinine Clearance 60 ml/min; Glucose 94 mg/dl (70-99); Potassium 3.2 mmol/L (3.5-5.1); Sodium 134 mmol/L (135-145); Total Bilirubin 0.6 mg/dl (0.2-1.3); Total Protein 6.4 g/dl (6.3-8.2); eGFR > 60.00
[2024-01-01 07:00] VITALS: BP 115/56
[2024-01-01] MEDS: Hygroton 25 MG PO (07:40)
[2024-01-01] MEDS: PULMICORT 0.5 MG INH ×2 (07:40→19:14)
[2024-01-01] MEDS: VENTOLIN NEBULES 2.5 MG INH ×2 (07:40→19:14)
[2024-01-01] MEDS: CRESTOR 5 MG PO (07:40)
[2024-01-01] MEDS: VITAMIN D3 (cholecalciferol) 50 MCG PO (07:40)
[2024-01-01] MEDS: COZAAR 100 MG PO (07:40)
[2024-01-01] MEDS: BYSTOLIC 2.5 MG PO (07:40)
[2024-01-01] MEDS: NORVASC 10 MG PO (07:40)
[2024-01-01] MEDS: XANAX 0.25 MG PO ×2 (07:40→20:04)
[2024-01-01] MEDS: ASPIR LOW (ENTERIC COATED) 81 MG PO (07:40)
--- NOTE | 2024-01-01 09:10 | W.PN.CRS1 ---
Today's Communication / Plan
-
colonoscopy tomorrow per GI
eventual surgery
Assessment/Plan
-
68-year-old female with PMH of intellectual disability, HTN, HLD, elevated BMI, OKSANA on CPAP, asthma, stress incontinence, alpha-1 antitrypsin deficiency, hypothyroid, IBS, severe PNA in [facility] in 08/2022, recent PNA with chronic suppresive Azithromycin
from Aug 2023 (stopped 2 weeks ago) who recently presented to the ED on 12/[address] for bloody diarrhea. A CT at that time identified a mesenteric mass. Patient was discharged with follow-up with Dr. Connor, who saw her on 12/17. Dr. Connor sent an
infectious workup with stool studies and C. difficile, ordered an MRI pelvis and scheduled her for colonoscopy to rule out polyps/masses and IBD. However, the patient continued to have numerous BMs with blood and yesterday was noted to be
particularly fatigued, so sister, who is POA, brought her to the ED for evaluation. In the ED, WBC 12.0, afebrile, VSS, CT showing moderate to severe rectosigmoid inflammation with likely reactive pelvic lymphadenopathy, appendix dilated to 2.9 cm
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
Plan:
1. Will plan to schedule surgery once the patient undergoes testing/symptoms improve. This may be done on an outpatient basis.
2. She is scheduled for a colonoscopy with GI tomorrow, on clears and undergoing a prep today.
3. Patient will need MRI pelvis to workup pelvic mass further; ok to obtain outpatient.
4. Tumor markers are pending.
5. Will follow.
Subjective Data
Subjective Data
Date of Service: January 01, 2024
Patient states she has pain 'all across her abdomen' but it is mild. She has no nausea. She is 'a little hungry'. She has no other complaints.
Objective Data
-
Vital Signs
Temp Pulse Resp BP Pulse Ox
97.9 F 68 16 115/56 95
01/01/24 07:00 01/01/24 07:46 01/01/24 07:46 01/01/24 07:40 01/01/24 07:53
Intake & Output
12/31/23 01/01/24 01/02/24
06:59 06:59 06:59
Intake Total 960 / 960
Balance 960 / 960
Intake:
Oral fluids 960 / 960
Other:
Number of approximated MODERATE 1 2
amounts of urine
Lab Results
01/01/24 06:00
01/01/24 06:00
Physical Exam
-
General: No Acute Distress and AOx3
Abdomen: Soft, Non Distended and Tender (mild - LLQ)
Skin: Warm and Dry
--- NOTE | 2024-01-01 09:51 | W.PN.HOSP.TC ---
Today's Communication/Plan
-
see A/P
Assessment / Plan
Assessment / Plan
A/P:
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
# Severe proctocolitis
Was undergoing GI work up outpatient with colonoscopy planned in mid January, and MRI for pelvic mass work up.
Per surgery, 'CT imaging with several abnormal findings including concern for proctocolitis and appendicial mucocele with adjacent calcified mass abutting the uterus and bladder with pelvic lymphadenopathy. Inflammatory etiology suspected with
possible underlying malignant pathology. Low suspicion for ischemic colitis given imaging and exam.'
Tumor markers AFP, CEA, CA 125, serotonin, Chromogranin A ordered by surgery, results pending
For C scope 01/01
Check Pelvic MRI after colonoscopy for pelvic mass w/u on CT imaging
CRS on board, considering surgery after C scope to evaluate the appendix mucocele/calcified mass in the pelvis
# Appendix mucocele
# Calcified mass in the pelvis
CT AP noted Large 6.4 cm calcified mass in the right lower quadrant adjacent to the appendiceal mucocele, uterus, and urinary bladder causing mild extrinsic mass effect, ddx include uterine leiomyoma or calcified mesenteric tumor.
Tumor markers AFP, CEA, CA 125, serotonin, Chromogranin A ordered by surgery, results pending
CRS on board, considering surgery after C scope to evaluate the appendix mucocele/calcified mass in the pelvis
# Asymptomatic bacteruria
hold off on any abx treatment for now
# HTN
continue home losartan, chlorthalidone, nebivolol and amlodipine
# Asthma, likely mild persistent
Cont LINE OPERATOR inhaled steroids and nebs
Cont LINE OPERATOR montelukast
# OKSANA
cpap hs
DVT PPX - lovenox sq
Full code
DW pt's aunt at bedside
total time spent 51 min
Anticipated Discharge: > 48 hours
Subjective/Interval History
-
Date of Service: January 01, 2024
Objective Data
-
Labs:
Laboratory Results
01/01/24
06:00
WBC 7.2
Hgb 10.7 L
Hct 31.8 L
Plt Count 265
Sodium 134 L
Potassium 3.2 L
Chloride 99
Carbon Dioxide 31 H
BUN 18 H
Creatinine 0.8
Glucose 94
Calcium 9.2
Total Bilirubin 0.6
AST 23
ALT 16
Alkaline Phosphatase 74
Vital Signs:
Vital Signs
Temp Pulse Resp BP Pulse Ox
36.6 C 68 16 115/56 95
01/01/24 07:00 01/01/24 07:46 01/01/24 07:46 01/01/24 07:40 01/01/24 07:53
I&O
12/31/23 01/01/24 01/02/24
06:59 06:59 06:59
Intake Total 960 / 960
Balance 960 / 960
Review of Systems
-
Abdomen/GI: Reports Diarrhea (subacute)
Physical Exam
-
General: Well Developed, Well Nourished, No Apparent Distress, Comfortable and Conversant
HEENT: Normocephalic and Atraumatic
Respiratory: Clear to Auscultation and Non Labored Respirations; Negative Accessory Resp Muscle Use
Cardiac: Regular Rhythm and S1/S2; Negative Murmur
GI: Soft and Distended
Musculoskeletal: No Clubbing
Neuro: Awake
Psych: Calm and Intact Judgement/Insight
Data Reviewed
-
CT Scan: Report Reviewed by me
Labs: Labs Reviewed by me
[2024-01-01] MEDS: KCL 270 MEQ IV (10:35)
--- NOTE | 2024-01-01 12:43 | CM ---
Met with pt and her cousin Vita at bedside
Pt lives with her sister and family in a 2 story home
Pt has an intellectual disability. Ambulates without difficulty, performs adl's without assist, assist with cooking, home management skills
DME - denies
SNF - denies past hx
HH - has had [facility] in past
Will have ride when d/c'ed
PCP - Dr Dennys Santos
Pharm - [facility]
Plan - anticipate home with family no needs when medically ready
--- NOTE | 2024-01-01 12:49 | W.PN.GI.CBS2 ---
Addendum entered and electronically signed by Katya Murillo MD 01/01/24 18:19:
I saw and examined the patient.
The PRINCIPAL BIOINFORMATICS SPECIALIST or PA's note was reviewed and I agree with the note.
Comment: Significant diarrhea with CT scan showing severe proctosigmoiditis
Stool studies so far negative
For colonoscopy tomorrow to evaluate the left colon and also to evaluate the cecal area for appendiceal mucocele that was noted on imaging.
Eventual pelvic MRI
Monitor electrolytes and replete
Will follow
Original Note:
Today's Communication / Plan
-
plan for colonoscopy 01/01
c-diff, stool cx neg
reviewed with family for prep today will start early as may have difficulty with taking-- discussed if unable to finish to complete in early AM as family assist with prep
reviewed choice of prep but per family prefer Colyte as concern for any not sure if she will tolerate Gatorade
may need additional mag citrate or enema if unable to complete
AFP, CEA, CA 125, serotonin, chromogranin A, fecal calprotectin pending
Eventual pelvic MRI after colonoscopy for the pelvic mass that was noted on CT scan.
K 3.2 s/p repletions per hospitalist
appreciate colorectal input possible appe/ileocoectomy pending findings
Assessment / Plan
-
68-year-old female with history of hypertension, high cholesterol, hypothyroidism, learning disability, history of pneumonia status post antibiotic use up until December 2023 presenting with diarrhea in the last 1 month, stool cultures negative
previously, CT scan of the abdomen and pelvis with contrast showing severe proctocolitis also appendiceal mucocele apart from calcified mass in the right lower quadrant. No previous colonoscopies as difficulty with prep in past. Prior Cologuard
negative as per patient in the past
12/31/23 CT Abd/pel W Iv And Oral Contr
1. MODERATE to SEVERE ACUTE PROCTOCOLITIS involving the sigmoid colon and rectum which has increased since 12/24/2023. Diagnostic possibilities are (1) acute infectious colitis or (2) inflammatory bowel disease (either ulcerative colitis or Crohn's
disease).
2. Mild to moderate pericolonic lymphadenopathy in the pelvis which is likely reactive and less likely metastatic in etiology.
3. 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
4. Large 6.4 cm calcified mass in the right lower quadrant adjacent to the appendiceal mucocele, uterus, and urinary bladder causing mild extrinsic mass effect. Diagnostic possibilities are (1) a large calcified pedunculated uterine leiomyoma or
(2) a calcified mesenteric tumor.
5. 3.9 cm calcified leiomyoma in the uterine fundus.
6. Mild hepatomegaly.
7. Small hiatal hernia.
8. Severe multilevel discogenic degenerative disease and facet joint arthrosis in the lumbar spine.
-Diarrhea and severe proctocolitis
-CT with concern for appendiceal mucocele
-calcified mass RLQ
-PNA with abx til December 2023
-hypokalemia
other medical problems:
-HTN
-hypercholesterolemia
-hypothyroidism
-learning disability
-asthma
-OKSANA
PLAN:
plan for colonoscopy 01/01
c-diff, stool cx neg
reviewed with family for prep today will start early as may have difficulty with taking-- discussed if unable to finish to complete in early AM as family assist with prep
reviewed choice of prep but per family prefer Colyte as concern for any not sure if she will tolerate Gatorade
may need additional mag citrate or enema if unable to complete
AFP, CEA, CA 125, serotonin, chromogranin A, fecal calprotectin pending
Eventual pelvic MRI after colonoscopy for the pelvic mass that was noted on CT scan.
K 3.2 s/p repletions per hospitalist
appreciate colorectal input possible appe/ileocoectomy pending findings
Will follow
Subjective
Subjective
Date of Service: January 01, 2024
clears then NPO in AM for colonoscopy very small amount of liquid stool
Objective
Data Reviewed
Laboratory Data:
Laboratory Results
01/01/24 06:00
01/01/24 06:00
Laboratory Results
Magnesium 2.0 mg/dl (1.6-2.3) 01/01/24 06:00
Total Bilirubin 0.6 mg/dl (0.2-1.3) 01/01/24 06:00
AST 23 U/L (14-36) 01/01/24 06:00
ALT 16 U/L (0-35) 01/01/24 06:00
Alkaline Phosphatase 74 U/L (38-126) 01/01/24 06:00
Lipase 142 U/L (23-300) 12/30/23 20:59
Vital Signs and I&O:
Vital Signs
Temp Pulse Resp BP Pulse Ox
97.9 F 68 16 115/56 95
01/01/24 07:00 01/01/24 07:46 01/01/24 07:46 01/01/24 07:40 01/01/24 07:53
I&O
12/31/23 01/01/24 01/02/24
06:59 06:59 06:59
Intake Total 960 / 960
Balance 960 / 960
Physical Exam
Physical Exam
HEENT: Anicteric
Cardiology: Normal Sinus Rhythm
GI: Soft, Non Distended and Non Tender
Extremities: No Edema
Neuro: Non Focal
[2024-01-01] MEDS: NULYTELY SOLUTION 4 LITERS PO (14:55)
[2024-01-01 15:00] VITALS: BP 124/71
[2024-01-01] MEDS: NON-FORMULARY ITEM 1 UNIT PO (16:13)
[2024-01-01] MEDS: LOVENOX 40 MG SC (17:28)
[2024-01-01] MEDS: MYLICON 320 MG PO (18:08)
[2024-01-01 20:03] LABS: CA 125 7.8 U/mL (0-35)
[2024-01-01 20:07] LABS: AFP Male/Tumor Marker 1.22 ng/ml
[2024-01-01] MEDS: ZYRTEC 10 MG PO (22:47)
[2024-01-01] MEDS: SINGULAIR 10 MG PO (22:47)
[2024-01-01 23:26] VITALS: BP 111/56
[2024-01-02] VITALS (9 sets, daily range): BP systolic 15–134; BP diastolic 58–76
[2024-01-02 05:58] LABS: Hematocrit 33.3 % (37.0-47.0); Hemoglobin 11.1 g/dL (12.0-16.0); Mean Corp Hgb Conc. 33.3 g/dL (33.0-37.0); Mean Corpuscular Hgb 28.2 pg (27.0-31.0); Mean Corpuscular Volume 84.5 fL (81.0-99.0); Mean Platelet Volume 9.8 fL (7.4-10.4); Platelet Count 268 10^3/uL (130-400); Red Blood Cell Count 3.94 10^6/uL (4.20-5.40); Red Cell Dist. Width 13.5 % (11.5-14.5); White Blood Cell Count 7.6 10^3/uL (4.8-10.8)
[2024-01-02 06:31] LABS: Blood Urea Nitrogen 12 mg/dl (7-17); Calcium 9.6 mg/dl (8.4-10.2); Carbon Dioxide 26 mmol/L (22-30); Chloride 102 mmol/L (98-107); Estimated Creatinine Clearance 69 ml/min; Glucose 90 mg/dl (70-99); Magnesium 2.1 mg/dl (1.6-2.3); Potassium 3.9 mmol/L (3.5-5.1); Sodium 138 mmol/L (135-145); eGFR > 60.00
[2024-01-02] MEDS: MYLICON 320 MG PO (07:13)
[2024-01-02] MEDS: VENTOLIN NEBULES 2.5 MG INH ×2 (07:34→19:34)
[2024-01-02] MEDS: PULMICORT 0.5 MG INH ×2 (07:34→19:34)
[2024-01-02] MEDS: CRESTOR 5 MG PO (09:03)
[2024-01-02] MEDS: COZAAR 100 MG PO (09:03)
[2024-01-02] MEDS: SYNTHROID PO (09:03)
[2024-01-02] MEDS: BYSTOLIC 2.5 MG PO (09:04)
[2024-01-02] MEDS: XANAX 0.25 MG PO ×2 (09:04→19:53)
[2024-01-02] MEDS: Hygroton 25 MG PO (09:04)
[2024-01-02] MEDS: NORVASC 10 MG PO (09:04)
[2024-01-02] MEDS: ASPIR LOW (ENTERIC COATED) 81 MG PO (09:04)
[2024-01-02] MEDS: VITAMIN D3 (cholecalciferol) 50 MCG PO (09:05)
--- NOTE | 2024-01-02 10:20 | W.PN.HOSP.TC ---
Today's Communication/Plan
-
see A/P
Assessment / Plan
Assessment / Plan
A/P:
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
# Severe proctocolitis
Was undergoing GI work up outpatient with colonoscopy planned in mid January, and MRI for pelvic mass work up.
Per surgery, 'CT imaging with several abnormal findings including concern for proctocolitis and appendicial mucocele with adjacent calcified mass abutting the uterus and bladder with pelvic lymphadenopathy. Inflammatory etiology suspected with
possible underlying malignant pathology. Low suspicion for ischemic colitis given imaging and exam.'
Tumor markers AFP/CEA/CA 125 are unrevealing
Serotonin, Chromogranin A are pending
For C scope 01/01
Check Pelvic MRI after colonoscopy for pelvic mass w/u on CT imaging
CRS on board, considering surgery after C scope to evaluate the appendix mucocele/calcified mass in the pelvis
# Appendix mucocele
# Calcified mass in the pelvis
CT AP noted Large 6.4 cm calcified mass in the right lower quadrant adjacent to the appendiceal mucocele, uterus, and urinary bladder causing mild extrinsic mass effect, ddx include uterine leiomyoma or calcified mesenteric tumor.
Tumor markers AFP, CEA, CA 125, serotonin, Chromogranin A ordered by surgery, results pending
CRS on board, considering surgery after C scope to evaluate the appendix mucocele/calcified mass in the pelvis
# Asymptomatic bacteruria
hold off on any abx treatment for now
# HTN
continue home losartan, chlorthalidone, nebivolol and amlodipine
# Asthma, likely mild persistent
Cont EDUCATIONAL DIAGNOSTICIAN inhaled steroids and nebs
Cont EDUCATIONAL DIAGNOSTICIAN montelukast
# OKSANA
cpap hs
DVT PPX - lovenox sq
Full code
DW pt's sister at bedside
Anticipated Discharge: > 48 hours
Subjective/Interval History
-
Date of Service: January 02, 2024
Objective Data
-
Labs:
Laboratory Results
01/02/24
05:28
WBC 7.6
Hgb 11.1 L
Hct 33.3 L
Plt Count 268
Sodium 138
Potassium 3.9
Chloride 102
Carbon Dioxide 26
BUN 12
Creatinine 0.7
Glucose 90
Calcium 9.6
Vital Signs:
Vital Signs
Temp Pulse Resp BP Pulse Ox
36.9 C 87 16 134/70 96
01/02/24 08:00 01/02/24 08:00 01/02/24 08:00 01/02/24 08:00 01/02/24 08:00
I&O
01/01/24 01/02/24 01/03/24
06:59 06:59 06:59
Intake Total 960 / 960 960 / 960
Balance 960 / 960 960 / 960
Review of Systems
-
Abdomen/GI: Reports Diarrhea (subacute)
Physical Exam
-
General: Well Developed, Well Nourished, No Apparent Distress, Comfortable and Conversant
HEENT: Normocephalic and Atraumatic
Respiratory: Clear to Auscultation and Non Labored Respirations; Negative Accessory Resp Muscle Use
Cardiac: Regular Rhythm and S1/S2; Negative Murmur
GI: Soft and Distended
Musculoskeletal: No Clubbing
Neuro: Awake
Psych: Calm and Intact Judgement/Insight
Data Reviewed
-
CT Scan: Report Reviewed by me
Labs: Labs Reviewed by me
--- NOTE | 2024-01-02 14:13 | CM ---
Case management following for d/c planning
Pt for colonoscopy today
will need pelvic MRI after colonoscopy
CM will follow for d/c needs
Plan - anticipate home - needs tbd
[2024-01-02] MEDS: LOVENOX 40 MG SC (17:44)
[2024-01-02] MEDS: ZYRTEC 10 MG PO (21:11)
[2024-01-02] MEDS: SINGULAIR 10 MG PO (21:11)
[2024-01-03] MEDS: SYNTHROID 100 MCG PO (06:17)
[2024-01-03 06:30] LABS: Hematocrit 32.2 % (37.0-47.0); Hemoglobin 10.8 g/dL (12.0-16.0); Mean Corp Hgb Conc. 33.5 g/dL (33.0-37.0); Mean Corpuscular Hgb 28.9 pg (27.0-31.0); Mean Corpuscular Volume 86.1 fL (81.0-99.0); Mean Platelet Volume 10.2 fL (7.4-10.4); Platelet Count 257 10^3/uL (130-400); Red Blood Cell Count 3.74 10^6/uL (4.20-5.40); Red Cell Dist. Width 13.6 % (11.5-14.5); White Blood Cell Count 8.2 10^3/uL (4.8-10.8)
--- NOTE | 2024-01-03 06:50 | W.PN.GI.CBS2 ---
Today's Communication / Plan
-
See assessment and plan for details.
Assessment / Plan
-
1. Colitis: Left-sided, endoscopically more consistent with UC, though stercoral colitis could also be possible given her severe constipation previously. There are some deeper ulcerations in the rectum and CMV is less likely though still possible.
She has no diarrhea overnight and exam is benign. At this point will await biopsies and assess her clinical course today. If recurrent significant diarrhea then would likely start a course of Uceris as well as Lialda on discharge.
2. Abnormal CT scan: with significant appendiceal mucocele as well as pelvic mass which seems to be associated, also with some compression of the bladder. Will check MRI of the pelvis today, colorectal surgery is following.
Subjective
Subjective
Date of Service: January 03, 2024
Patient feeling well, still some mild left-sided discomfort, no bowel movements overnight, no vomiting, tolerating diet.
Objective
Data Reviewed
Laboratory Data:
Laboratory Results
01/03/24 05:47
Laboratory Results
Magnesium 2.1 mg/dl (1.6-2.3) 01/02/24 05:28
Total Bilirubin 0.6 mg/dl (0.2-1.3) 01/01/24 06:00
AST 23 U/L (14-36) 01/01/24 06:00
ALT 16 U/L (0-35) 01/01/24 06:00
Alkaline Phosphatase 74 U/L (38-126) 01/01/24 06:00
Lipase 142 U/L (23-300) 12/30/23 20:59
Vital Signs and I&O:
Vital Signs
Temp Pulse Resp BP Pulse Ox
97.5 F 69 16 106/58 96
01/03/24 03:41 01/02/24 23:20 01/02/24 23:20 01/02/24 23:20 01/02/24 23:20
I&O
01/01/24 01/02/24 01/03/24
06:59 06:59 06:59
Intake Total 960 / 960 960 / 960 700 / 700
Balance 960 / 960 960 / 960 700 / 700
Physical Exam
Physical Exam
General: NAD
Abdomen: normal bowel sounds, soft, minimal left-sided tenderness, no masses or bruits, no ascites
[2024-01-03 06:53] LABS: Blood Urea Nitrogen 12 mg/dl (7-17); Calcium 9.3 mg/dl (8.4-10.2); Carbon Dioxide 27 mmol/L (22-30); Chloride 103 mmol/L (98-107); Estimated Creatinine Clearance 69 ml/min; Glucose 93 mg/dl (70-99); Magnesium 1.9 mg/dl (1.6-2.3); Potassium 3.4 mmol/L (3.5-5.1); Sodium 136 mmol/L (135-145); eGFR > 60.00
[2024-01-03 07:00] VITALS: BP 113/65
[2024-01-03] MEDS: PULMICORT 0.5 MG INH ×2 (07:25→19:29)
[2024-01-03] MEDS: VENTOLIN NEBULES 2.5 MG INH ×2 (07:25→19:29)
[2024-01-03] MEDS: BYSTOLIC 2.5 MG PO (07:56)
[2024-01-03] MEDS: COZAAR 100 MG PO (07:57)
[2024-01-03] MEDS: ASPIR LOW (ENTERIC COATED) 81 MG PO (07:57)
[2024-01-03] MEDS: VITAMIN D3 (cholecalciferol) 50 MCG PO (07:57)
[2024-01-03] MEDS: Hygroton 25 MG PO (07:57)
[2024-01-03] MEDS: NORVASC 10 MG PO (07:57)
[2024-01-03] MEDS: CRESTOR 5 MG PO (07:57)
[2024-01-03] MEDS: XANAX 0.25 MG PO ×2 (07:57→20:27)
--- NOTE | 2024-01-03 08:54 | W.PN.CRS1 ---
Today's Communication / Plan
-
F/u MRI
Assessment/Plan
-
68-year-old female with PMH of intellectual disability, HTN, HLD, elevated BMI, OKSANA on CPAP, asthma, stress incontinence, alpha-1 antitrypsin deficiency, hypothyroid, IBS, severe PNA in [place] in 08/2022, recent PNA with chronic suppresive Azithromycin
from Aug 2023 (stopped 2 weeks ago) who recently presented to the ED on 12/[address] for bloody diarrhea. A CT at that time identified a mesenteric mass. Patient was discharged with follow-up with Dr. Connor, who saw her on 12/17. Dr. Connor sent an
infectious workup with stool studies and C. difficile, ordered an MRI pelvis and scheduled her for colonoscopy to rule out polyps/masses and IBD. However, the patient continued to have numerous BMs with blood and yesterday was noted to be
particularly fatigued, so sister, who is POA, brought her to the ED for evaluation. In the ED, WBC 12.0, afebrile, VSS, CT showing moderate to severe rectosigmoid inflammation with likely reactive pelvic lymphadenopathy, appendix dilated to 2.9 cm
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
S/p cscope 01/01 - inflammation in rectum, sigmoid and descending; biospied, c/f UC; may require maintenance meds
�Appendieal mass and pelvic mass
-f/u MRI pelvis
-tumor markers (CEA, CA125, AFP) normal; pending chromogranin a
-If gynecologic malignancy suspected, would recommend consult to Dr. Escalante at that time; not necessary right now
� Acute proctocolitis, likely UC
-sent CRP and fecal calprotectin
-stool studies/cdiff negative
-appreciate GI consult; may need maintenance meds if no improvement in symptoms
-f/u biopsy
�Okay for DVT PPx
� Diet per primary
Subjective Data
Subjective Data
Date of Service: January 03, 2024
No overnight events.
Pain persistent on left hemiabdomen, improved with pain medicine.
Denies nausea/vomiting. Tolerating diet.
No bowel function since colonoscopy. +voiding
Pt is OOB.
Objective Data
-
Vital Signs
Temp Pulse Resp BP Pulse Ox
98.1 F 74 18 113/65 98
01/03/24 07:00 01/03/24 07:56 01/03/24 07:32 01/03/24 07:56 01/03/24 07:32
Intake & Output
01/02/24 01/03/24 01/04/24
06:59 06:59 06:59
Intake Total 960 / 960 700 / 700
Balance 960 / 960 700 / 700
Intake:
Oral fluids 960 / 960 700 / 700
Other:
Number of approximated MODERATE 3 3
amounts of urine
Number of unmeasured liquid
stools
Rectum 3
Lab Results
01/03/24 05:47
01/03/24 05:47
Physical Exam
-
General: No Acute Distress and AOx3
HEENT: Grossly Normal
Abdomen: Soft, Non Distended and Tender (Mildly tender in the LLQ to LUQ, no rebound or guarding)
Skin: Warm and Dry
[2024-01-03 09:27] LABS: C-Reactive Protein < 5.00 mg/L (0.0-10.00)
--- NOTE | 2024-01-03 09:58 | W.PN.HOSP.TC ---
Today's Communication/Plan
-
see A/P
Assessment / Plan
Assessment / Plan
A/P:
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
# Severe proctocolitis
Was undergoing GI work up outpatient with colonoscopy planned in mid January, and MRI for pelvic mass work up.
Per surgery, 'CT imaging with several abnormal findings including concern for proctocolitis and appendicial mucocele with adjacent calcified mass abutting the uterus and bladder with pelvic lymphadenopathy. Inflammatory etiology suspected with
possible underlying malignant pathology. Low suspicion for ischemic colitis given imaging and exam.'
Tumor markers AFP/CEA/CA 125 are unrevealing.
Serotonin, Chromogranin A are pending
s/p C scope 01/01: noted Left sided colitis possible UC though stercoral colitis also possible given her severe constipation previously. Noted deeper ulcerations in the rectum and CMV is less likely though still possible.
Follow colonic biopsies.
CRP negative, follow fecal calprotectin
Check Pelvic MRI for pelvic mass w/u noted on CT imaging
CRS on board, considering surgery after C scope to evaluate the appendix mucocele/calcified mass in the pelvis
# Appendix mucocele
# Calcified mass in the pelvis
CT AP noted Large 6.4 cm calcified mass in the right lower quadrant adjacent to the appendiceal mucocele, uterus, and urinary bladder causing mild extrinsic mass effect, ddx include uterine leiomyoma or calcified mesenteric tumor.
Tumor markers AFP/CEA/CA 125 are unrevealing
Serotonin, Chromogranin A are pending
CRS on board, considering surgery after C scope to evaluate the appendix mucocele/calcified mass in the pelvis
# Asymptomatic bacteruria
hold off on any abx treatment for now
# HTN
continue home losartan, chlorthalidone, nebivolol and amlodipine
# Asthma, likely mild persistent
Cont NEUROLOGY PHYSICIAN inhaled steroids and nebs
Cont NEUROLOGY PHYSICIAN montelukast
# OKSANA
cpap hs
DVT PPX - lovenox sq
Full code
DW pt's aunt at bedside
Anticipated Discharge: 24 - 48 hours
Subjective/Interval History
-
Date of Service: January 03, 2024
Objective Data
-
Labs:
Laboratory Results
01/03/24
05:47
WBC 8.2
Hgb 10.8 L
Hct 32.2 L
Plt Count 257
Sodium 136
Potassium 3.4 L
Chloride 103
Carbon Dioxide 27
BUN 12
Creatinine 0.7
Glucose 93
Calcium 9.3
Vital Signs:
Vital Signs
Temp Pulse Resp BP Pulse Ox
36.7 C 74 18 113/65 98
01/03/24 07:00 01/03/24 07:56 01/03/24 07:32 01/03/24 07:56 01/03/24 07:32
I&O
01/02/24 01/03/24 01/04/24
06:59 06:59 06:59
Intake Total 960 / 960 700 / 700
Balance 960 / 960 700 / 700
Review of Systems
-
Abdomen/GI: Reports Abdominal Pain (chronic, L sided ); Denies Diarrhea (none since C scope prep)
Physical Exam
-
General: Well Developed, Well Nourished, No Apparent Distress, Comfortable and Conversant
HEENT: Normocephalic and Atraumatic
Respiratory: Clear to Auscultation and Non Labored Respirations; Negative Accessory Resp Muscle Use
Cardiac: Regular Rhythm and S1/S2; Negative Murmur
GI: Soft
Musculoskeletal: No Clubbing
Neuro: Awake
Psych: Calm and Intact Judgement/Insight
Data Reviewed
-
CT Scan: Report Reviewed by me
Labs: Labs Reviewed by me
[2024-01-03] MEDS: KCL 40 MEQ PO (10:59)
--- NOTE | 2024-01-03 13:28 | WOUNDNOTE ---
WO RN note: RT asked for this typewriter assembly and parts inspector to evaluate patient's facial rash (rosacea worsened) from the cpap mask. Patient stated using her own Metronidazole cream .75% and is has improved as per relative. Patient's sister is bringing in her own Cpap
mask. Left silicone foam and non woven gauze to use if needed for protection. Updated RT Paula and Dr. Galo who both agree with plan. Updated RN Horace. Patient moves self. Bilateral buttocks mild blanchable red and intact. Air chair cushion given.
Skin on heels intact.
[2024-01-03 15:00] VITALS: BP 99/55
[2024-01-03] MEDS: NON-FORMULARY ITEM 0.75 % TOPICAL ×2 (16:35→20:27)
[2024-01-03] MEDS: LOVENOX 40 MG SC (17:47)
[2024-01-03 17:59] LABS: Chromogranin A 61 ng/mL (0-187)
[2024-01-03] MEDS: ZYRTEC 10 MG PO (21:10)
[2024-01-03] MEDS: SINGULAIR 10 MG PO (21:10)
[2024-01-03 23:40] VITALS: BP 108/54
[2024-01-04] MEDS: SYNTHROID 100 MCG PO (05:46)
[2024-01-04 06:20] LABS: Hematocrit 33.4 % (37.0-47.0); Hemoglobin 11.1 g/dL (12.0-16.0); Mean Corp Hgb Conc. 33.2 g/dL (33.0-37.0); Mean Corpuscular Hgb 28.6 pg (27.0-31.0); Mean Corpuscular Volume 86.1 fL (81.0-99.0); Mean Platelet Volume 10.2 fL (7.4-10.4); Platelet Count 254 10^3/uL (130-400); Red Blood Cell Count 3.88 10^6/uL (4.20-5.40); Red Cell Dist. Width 13.7 % (11.5-14.5); White Blood Cell Count 8.4 10^3/uL (4.8-10.8)
[2024-01-04 06:48] LABS: Blood Urea Nitrogen 15 mg/dl (7-17); Calcium 9.3 mg/dl (8.4-10.2); Carbon Dioxide 28 mmol/L (22-30); Chloride 102 mmol/L (98-107); Estimated Creatinine Clearance 60 ml/min; Glucose 94 mg/dl (70-99); Magnesium 1.9 mg/dl (1.6-2.3); Potassium 3.8 mmol/L (3.5-5.1); Sodium 134 mmol/L (135-145); eGFR > 60.00
--- NOTE | 2024-01-04 06:54 | W.PN.GI.CBS2 ---
Today's Communication / Plan
-
See assessment and plan for details.
Assessment / Plan
-
1. Colitis: Left-sided, endoscopically more consistent with UC, biopsies with chronic active colitis, consistent with inflammatory bowel disease, no granulomas, negative for CMV. Currently she is feeling well with really no significant symptoms.
I discussed with her and her sister at length, would plan to start a course of Uceris and start Lialda on discharge, I will call into her pharmacy today. If she has recurrent or worsening symptoms while still hospitalized could start a course of
prednisone, though we will hold on this for now given her exam and symptoms.
2. Abnormal CT scan: with significant appendiceal mucocele as well as pelvic mass which may or may not be associated, also with some compression of the bladder. Awaiting MRI still, discussed with nursing, colorectal surgery is following.
Subjective
Subjective
Date of Service: January 04, 2024
Patient feeling well, no abdominal pain, no diarrhea, fever or chills, tolerated diet without difficulty. Still awaiting MRI.
Objective
Data Reviewed
Laboratory Data:
Laboratory Results
01/04/24 05:44
01/04/24 05:44
Laboratory Results
Magnesium 1.9 mg/dl (1.6-2.3) 01/04/24 05:44
Total Bilirubin 0.6 mg/dl (0.2-1.3) 01/01/24 06:00
AST 23 U/L (14-36) 01/01/24 06:00
ALT 16 U/L (0-35) 01/01/24 06:00
Alkaline Phosphatase 74 U/L (38-126) 01/01/24 06:00
Lipase 142 U/L (23-300) 12/30/23 20:59
Vital Signs and I&O:
Vital Signs
Temp Pulse Resp BP Pulse Ox
97.7 F 76 20 108/54 95
01/03/24 23:40 01/03/24 23:40 01/03/24 23:40 01/03/24 23:40 01/03/24 23:40
I&O
01/02/24 01/03/24 01/04/24
06:59 06:59 06:59
Intake Total 960 / 960 700 / 700 720 / 720
Balance 960 / 960 700 / 700 720 / 720
Physical Exam
Physical Exam
General: NAD
Abdomen: normal bowel sounds, soft, no tenderness, no masses or bruits, no ascites
[2024-01-04 07:00] VITALS: BP 124/74
[2024-01-04] MEDS: VENTOLIN NEBULES 2.5 MG INH ×2 (07:21→22:17)
[2024-01-04] MEDS: ASPIR LOW (ENTERIC COATED) 81 MG PO (08:13)
[2024-01-04] MEDS: CRESTOR 5 MG PO (08:13)
[2024-01-04] MEDS: VITAMIN D3 (cholecalciferol) 50 MCG PO (08:14)
[2024-01-04] MEDS: XANAX 0.25 MG PO ×2 (08:14→21:16)
[2024-01-04] MEDS: Hygroton 25 MG PO (08:14)
[2024-01-04] MEDS: NON-FORMULARY ITEM 0.75 % TOPICAL ×2 (08:16→21:16)
[2024-01-04] MEDS: COZAAR 100 MG PO (08:16)
[2024-01-04] MEDS: NORVASC 10 MG PO (08:16)
[2024-01-04] MEDS: BYSTOLIC 2.5 MG PO (08:31)
--- NOTE | 2024-01-04 09:35 | W.PN.HOSP.TC ---
Today's Communication/Plan
-
see A/P
Assessment / Plan
Assessment / Plan
A/P:
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
# Severe proctocolitis
Was undergoing GI work up outpatient with colonoscopy planned in mid January, and MRI for pelvic mass work up.
Per surgery, 'CT imaging with several abnormal findings including concern for proctocolitis and appendicial mucocele with adjacent calcified mass abutting the uterus and bladder with pelvic lymphadenopathy. Inflammatory etiology suspected with
possible underlying malignant pathology. Low suspicion for ischemic colitis given imaging and exam.'
Tumor markers AFP/CEA/CA 125/Chromogranin A are unrevealing.
Serotonin level is pending
s/p C scope 01/01: noted Left sided colitis possible UC though stercoral colitis also possible given her severe constipation previously. Noted deeper ulcerations in the rectum and CMV is less likely though still possible.
Colonic biopsies also showed inflammatory bowel disease.
CRP negative, follow fecal calprotectin
Check Pelvic MRI for pelvic mass w/u noted on CT imaging
CRS on board, considering surgery after C scope to evaluate the appendix mucocele/calcified mass in the pelvis
# Appendix mucocele
# Calcified mass in the pelvis
CT AP noted Large 6.4 cm calcified mass in the right lower quadrant adjacent to the appendiceal mucocele, uterus, and urinary bladder causing mild extrinsic mass effect, ddx include uterine leiomyoma or calcified mesenteric tumor.
Tumor markers AFP/CEA/CA 125/Chromogranin A are unrevealing.
Serotonin level is pending
CRS on board, considering surgery after C scope to evaluate the appendix mucocele/calcified mass in the pelvis
# Asymptomatic bacteruria
hold off on any abx treatment for now
# HTN
continue home losartan, chlorthalidone, nebivolol and amlodipine
# Asthma, likely mild persistent
Cont FILTER ASSEMBLER inhaled steroids and nebs
Cont FILTER ASSEMBLER montelukast
# OKSANA
cpap hs
DVT PPX - lovenox sq
Full code
DW pt's sister at bedside
Anticipated Discharge: > 48 hours
Subjective/Interval History
-
Date of Service: January 04, 2024
Objective Data
-
Labs:
Laboratory Results
01/04/24
05:44
WBC 8.4
Hgb 11.1 L
Hct 33.4 L
Plt Count 254
Sodium 134 L
Potassium 3.8
Chloride 102
Carbon Dioxide 28
BUN 15
Creatinine 0.8
Glucose 94
Calcium 9.3
Vital Signs:
Vital Signs
Temp Pulse Resp BP Pulse Ox
36.9 C 83 16 124/74 95
01/04/24 07:00 01/04/24 08:14 01/04/24 07:26 01/04/24 08:14 01/04/24 07:26
I&O
01/03/24 01/04/24 01/05/24
06:59 06:59 06:59
Intake Total 700 / 700 720 / 720
Balance 700 / 700 720 / 720
--- NOTE | 2024-01-04 10:33 | W.PN.CRS1 ---
Today's Communication / Plan
-
Await MRI
Assessment/Plan
-
68-year-old female with PMH of intellectual disability, HTN, HLD, elevated BMI, OKSANA on CPAP, asthma, stress incontinence, alpha-1 antitrypsin deficiency, hypothyroid, IBS, severe PNA in [place] in 08/2022, recent PNA with chronic suppresive Azithromycin
from Aug 2023 (stopped 2 weeks ago) who recently presented to the ED on 12/[address] for [address] diarrhea[address] A CT at that time identified a mesenteric mass. Patient was discharged with follow-up with Dr. Connor, who saw her on 12/17. Dr. Connor sent an
infectious workup with stool studies and C. difficile, ordered an MRI pelvis and scheduled her for colonoscopy to rule out polyps/masses and IBD. However, the patient continued to have numerous BMs with blood and yesterday was noted to be
particularly fatigued, so sister, who is POA, brought her to the ED for evaluation. In the ED, WBC 12.0, afebrile, VSS, CT showing moderate to severe rectosigmoid inflammation with likely reactive pelvic lymphadenopathy, appendix dilated to 2.9 cm
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
Plan:
1. Will plan to schedule surgery once the patient undergoes testing/symptoms improve. This may be done on an outpatient basis.
2. Patient will need MRI pelvis to workup pelvic mass further; hopefully today.
3. Continue a low residue diet as tolerated.
4. Appreciate GI.
5. Plan for Uceris and Lialda on discharge per GI.
Subjective Data
Subjective Data
Date of Service: January 04, 2024
Patient states she feels well. She has a mild amount of abdominal pain. She denies nausea. She had two small bowel movements this morning.
Objective Data
-
Vital Signs
Temp Pulse Resp BP Pulse Ox
98.5 F 83 16 124/74 95
01/04/24 07:00 01/04/24 08:14 01/04/24 07:26 01/04/24 08:14 01/04/24 07:26
Intake & Output
01/03/24 01/04/24 01/05/24
06:59 06:59 06:59
Intake Total 700 / 700 720 / 720
Balance 700 / 700 720 / 720
Intake:
Oral fluids 700 / 700 720 / 720
Other:
Number of approximated MODERATE 3 3
amounts of urine
Lab Results
01/04/24 05:44
01/04/24 05:44
Physical Exam
-
General: No Acute Distress and AOx3
Abdomen: Soft, Non Distended and Tender (mild LLQ to LUQ)
Skin: Warm and Dry
[2024-01-04 15:00] VITALS: BP 120/53
--- NOTE | 2024-01-04 15:55 | CM ---
front desk manager following for d/c planning
Met with pt and family member at bedside
Waiting on MRI results to determine plan of care per family member
CM will follow for d/c needs
Plan - anticipate home no needs
[2024-01-04] MEDS: LOVENOX 40 MG SC (17:54)
[2024-01-04 19:44] LABS: Serotonin 105 ng/mL (50-220)
[2024-01-04] MEDS: ZYRTEC 10 MG PO (21:16)
[2024-01-04] MEDS: SINGULAIR 10 MG PO (21:16)
[2024-01-04] MEDS: PULMICORT 0.25 MG INH (22:18)
[2024-01-04 23:38] VITALS: BP 109/51
[2024-01-05] MEDS: SYNTHROID 100 MCG PO (06:19)
[2024-01-05 06:29] LABS: Hematocrit 31.6 % (37.0-47.0); Hemoglobin 10.7 g/dL (12.0-16.0); Mean Corp Hgb Conc. 33.9 g/dL (33.0-37.0); Mean Corpuscular Hgb 28.6 pg (27.0-31.0); Mean Corpuscular Volume 84.5 fL (81.0-99.0); Mean Platelet Volume 10.3 fL (7.4-10.4); Platelet Count 260 10^3/uL (130-400); Red Blood Cell Count 3.74 10^6/uL (4.20-5.40); Red Cell Dist. Width 13.6 % (11.5-14.5); White Blood Cell Count 9.5 10^3/uL (4.8-10.8)
[2024-01-05 06:59] LABS: Blood Urea Nitrogen 14 mg/dl (7-17); Calcium 9.3 mg/dl (8.4-10.2); Carbon Dioxide 25 mmol/L (22-30); Chloride 100 mmol/L (98-107); Estimated Creatinine Clearance 69 ml/min; Glucose 101 mg/dl (70-99); Magnesium 1.7 mg/dl (1.6-2.3); Potassium 3.3 mmol/L (3.5-5.1); Sodium 135 mmol/L (135-145); eGFR > 60.00
[2024-01-05 07:00] VITALS: BP 138/73
[2024-01-05] MEDS: VENTOLIN NEBULES 2.5 MG INH (07:52)
[2024-01-05] MEDS: PULMICORT 0.25 MG INH (07:53)
[2024-01-05] MEDS: KCL 40 MEQ PO ×2 (09:09→12:13)
[2024-01-05] MEDS: COZAAR 100 MG PO (09:10)
[2024-01-05] MEDS: NON-FORMULARY ITEM 0.75 % TOPICAL (09:10)
[2024-01-05] MEDS: NORVASC 10 MG PO (09:10)
[2024-01-05] MEDS: VITAMIN D3 (cholecalciferol) 50 MCG PO (09:11)
[2024-01-05] MEDS: XANAX 0.25 MG PO (09:11)
--- NOTE | 2024-01-05 09:24 | W.PN.GYN ---
Documented by User: Morris Rodriguez PA-C 01/08/24 15:57
Physician Note
-
HPI- 68 yr old white G0 white female who is inpatient for treatment of Acute Proctocolitis. She has been having bloody diarrhea for about a month and during her work up CT scan revealed a 7.2 cm appendiceal mucocele and a 6.4cm right sided pelvic
mass which was unchanged on CT scan upon admission. A pelvic MRI shows a 3.9 fundal fibroid and the 6 cm mass to be more left lateral and possible broad ligament fibroid.During the work up tumor makers were done and negative. Dr Tran asked for us
to see her to evaluate if a hysterectomy would be needed at time of appendectomy. Patient is with her Aunt who is one of her caretakers, patient denies any vaginal bleeding since menopause around age 52. 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
Aunt does not think she has had an exam in years. Aunt thought there was a hx of fibroids, but other farm or ranch animal caretaker sister denies not remember there being any hx.
PMH-developmental delay, HTN,hypothyroid,HLD,IDD,OKSANA,Asthma,IBS (UC on recent colonoscpy),gout,and GERD
Surgical hx - shoulder and knee replacement, colonoscopy
exam- abdomen- soft nontender edge of liver palpated pelvic exam patient dressed to be discharged
IMP/Plan-patient discussed with Dr Escalante reviewed imaging and feel this is a benign process and will follow up outpatient with a complete pelvic exam and discussion if a hysterectomy is needed at time of appendectomy

Documented by User: Eliezer Escalante MD 01/08/24 15:56
Today's Communication / Plan
-
see above
--- NOTE | 2024-01-05 10:19 | W.PN.CRS1 ---
Today's Communication / Plan
-
okay for d/c from our perspective
follow up in the office with Dr. Tran in 1-2 weeks
Assessment/Plan
-
68-year-old female with PMH of intellectual disability, HTN, HLD, elevated BMI, OKSANA on CPAP, asthma, stress incontinence, alpha-1 antitrypsin deficiency, hypothyroid, IBS, severe PNA in [place] in 08/2022, recent PNA with chronic suppresive Azithromycin
from Aug 2023 (stopped 2 weeks ago) who recently presented to the ED on 12/23 for bloody diarrhea. A CT at that time identified a mesenteric mass. Patient was discharged with follow-up with Dr. Connor, who saw her on 12/17. Dr. Connor sent an
infectious workup with stool studies and C. difficile, ordered an MRI pelvis and scheduled her for colonoscopy to rule out polyps/masses and IBD. However, the patient continued to have numerous BMs with blood and yesterday was noted to be
particularly fatigued, so sister, who is POA, brought her to the ED for evaluation. In the ED, WBC 12.0, afebrile, VSS, CT showing moderate to severe rectosigmoid inflammation with likely reactive pelvic lymphadenopathy, appendix dilated to 2.9 cm
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
Plan:
1. Will plan to schedule surgery once the patient undergoes testing/symptoms improve. This will be done on an outpatient basis.
2. MRI of the pelvis reviewed. Dr. Tran has notified Dr. Escalante for his opinion and hopefully his PA will see the patient today.
3. Continue a low residue diet as tolerated.
4. Appreciate GI.
5. Plan for Uceris and Lialda on discharge per GI.
6. Okay for d/c from our perspective. Will need to follow up with Dr. Tran in 1-2 weeks in the office. Discussed with patient and family member at bedside.
Subjective Data
Subjective Data
Date of Service: January 05, 2024
Patient states she has no nausea or vomiting. Her pain has improved. She had a small amount of liquid stool overnight.
Objective Data
-
Vital Signs
Temp Pulse Resp BP Pulse Ox
98.6 F 79 16 138/73 95
01/05/24 07:00 01/05/24 09:10 01/05/24 07:57 01/05/24 09:10 01/05/24 07:57
Intake & Output
01/04/24 01/05/24 01/06/24
06:59 06:59 06:59
Intake Total 720 / 720 730 / 730
Balance 720 / 720 730 / 730
Intake:
Oral fluids 720 / 720 730 / 730
Other:
Number of approximated MODERATE 3 1
amounts of urine
How many times incontinent 1
SMALL amount urine
Lab Results
01/05/24 05:43
01/05/24 05:43
Physical Exam
-
General: No Acute Distress and AOx3
Abdomen: Soft, Non Distended and Non Tender
Skin: Warm and Dry
Data Reviewed
-
MRI: Image Reviewed and Report Reviewed
[2024-01-05] MEDS: Hygroton 25 MG PO (10:33)
[2024-01-05] MEDS: ASPIR LOW (ENTERIC COATED) 81 MG PO (10:33)
[2024-01-05] MEDS: CRESTOR 5 MG PO (10:33)
[2024-01-05] MEDS: BYSTOLIC 2.5 MG PO (10:33)
--- NOTE | 2024-01-05 10:42 | W.PN.HOSP.TC ---
Addendum entered and electronically signed by Yanci Galo MD 01/05/24 13:53:
total DC time 35 min
Original Note:
Today's Communication/Plan
-
DC home today
Assessment / Plan
Assessment / Plan
A/P:
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
# Severe proctocolitis
Was undergoing GI work up outpatient with colonoscopy planned in mid January, and MRI for pelvic mass work up.
s/p C scope 01/01: noted Left sided colitis possible UC though stercoral colitis also possible given her severe constipation previously. Noted deeper ulcerations in the rectum and CMV is less likely though still possible.
Colonic biopsies also showed inflammatory bowel disease.
CRP negative
GI recc to start Uceris and Lialda outpt
# Appendix mucocele
# Calcified mass in the pelvis likely broad ligament fibroid.
CT AP noted Large 6.4 cm calcified mass in the right lower quadrant adjacent to the appendiceal mucocele, uterus, and urinary bladder causing mild extrinsic mass effect, ddx include uterine leiomyoma or calcified mesenteric tumor.
Tumor markers AFP/CEA/CA 125/Chromogranin A/ Serotonin level are unrevealing.
Pelvic MRI noted Appendiceal mucocele, Calcified transmural fibroid in the uterine fundus. Calcified anterior pelvic mass, this may represent a broad ligament fibroid. Improving proctocolitis.
CRS Dr. Tran has notified BOOKKEEPING MACHINE MECHANIC Dr. Escalante
Pt most likely would need hysterectomy (can be done outpatient) and CRS can do appendectomy at the same time
# Asymptomatic bacteruria
hold off on any abx treatment for now
# HTN
continue home losartan, chlorthalidone, nebivolol and amlodipine
# Asthma, likely mild persistent
Cont COGNOS BI DEVELOPER inhaled steroids and nebs
Cont COGNOS BI DEVELOPER montelukast
# OKSANA
cpap hs
# Hypokalemia
replete
DVT PPX - lovenox sq
Full code
DW CRS, GI teams
DW aunt at bedside
Anticipated Discharge: Today
Subjective/Interval History
-
Date of Service: January 05, 2024
Objective Data
-
Labs:
Laboratory Results
01/05/24
05:43
WBC 9.5
Hgb 10.7 L
Hct 31.6 L
Plt Count 260
Sodium 135
Potassium 3.3 L
Chloride 100
Carbon Dioxide 25
BUN 14
Creatinine 0.7
Glucose 101 H
Calcium 9.3
Vital Signs:
Vital Signs
Temp Pulse Resp BP Pulse Ox
37.0 C 79 16 138/73 95
01/05/24 07:00 01/05/24 09:10 01/05/24 07:57 01/05/24 09:10 01/05/24 07:57
I&O
01/04/24 01/05/24 01/06/24
06:59 06:59 06:59
Intake Total 720 / 720 730 / 730
Balance 720 / 720 730 / 730
Review of Systems
-
Abdomen/GI: Reports Abdominal Pain (chronic, L sided ); Denies Diarrhea (none since C scope prep)
Physical Exam
-
General: Well Developed, Well Nourished, No Apparent Distress, Comfortable and Conversant
HEENT: Normocephalic and Atraumatic
Respiratory: Clear to Auscultation and Non Labored Respirations; Negative Accessory Resp Muscle Use
Cardiac: Regular Rhythm and S1/S2; Negative Murmur
GI: Soft
Musculoskeletal: No Clubbing
Neuro: Awake
Psych: Calm and Intact Judgement/Insight
Data Reviewed
-
CT Scan: Report Reviewed by me
Labs: Labs Reviewed by me
--- NOTE | 2024-01-05 11:36 | CM ---
Addendum entered by Chacha Pratt 01/05/24 11:39:
[facility] accepted referral
Fax - [phone]
Original Note:
Pt for discharge
Spoke with pt and family member Vita
CM consulted for VN/HH - offered choice - prefer [facility]
Referral sent in care port for HH services
Pt has ride home
Discussed IMM
Plan - anticipate home with [facility]
--- NOTE | 2024-01-05 12:29 | W.PN.GI.CBS2 ---
Today's Communication / Plan
-
plan d/c today, GI signing off
Assessment / Plan
-
1. Colitis: Left-sided, endoscopically more consistent with UC, biopsies with chronic active colitis (I reviewed with patient and family member today), consistent with inflammatory bowel disease, no granulomas, negative for CMV. Currently she is
feeling well with really no significant symptoms. Patient's family has picked up Uceris (I reviewed s/e of weight gain, insomnia, effecting bone density, etc) as well as Lialda (I reviewed s/e inc but not limited to colitis, pancreatitis, kidney
injury). We reviewed plan of repeat calpro in 3 mo and scope in 6 mo likely to assess response.
2. Abnormal CT/MRI scan: with significant appendiceal mucocele with calcified anterior pelvic mass - per family plan is outpatient appendectomy and hysterectomy, colorectal note reviewed as well.
I d/w hospitalist plan for discharge today. Appt given to patient with appt card and on DC summary in 1 month, counseled to call if any worsening symptoms.
GI will sign off pls call with ?s.
Subjective
Subjective
Date of Service: January 05, 2024
Patient feels well no abd pain, 1-2 loose stools a day.
Objective
Data Reviewed
Laboratory Data:
Laboratory Results
01/05/24 05:43
01/05/24 05:43
Laboratory Results
Magnesium 1.7 mg/dl (1.6-2.3) 01/05/24 05:43
Total Bilirubin 0.6 mg/dl (0.2-1.3) 01/01/24 06:00
AST 23 U/L (14-36) 01/01/24 06:00
ALT 16 U/L (0-35) 01/01/24 06:00
Alkaline Phosphatase 74 U/L (38-126) 01/01/24 06:00
Lipase 142 U/L (23-300) 12/30/23 20:59
Vital Signs and I&O:
Vital Signs
Temp Pulse Resp BP Pulse Ox
98.6 F 79 16 138/73 95
01/05/24 07:00 01/05/24 09:10 01/05/24 07:57 01/05/24 09:10 01/05/24 07:57
I&O
01/04/24 01/05/24 01/06/24
06:59 06:59 06:59
Intake Total 720 / 720 730 / 730
Balance 720 / 720 730 / 730
Physical Exam
Physical Exam
HEENT: Anicteric
GI: Non Distended and Non Tender
--- NOTE | 2024-01-05 13:03 | PTCARENOTE ---
Pt discharged home with VN. Discharge instructions discussed with pt and pt's family member at bedside. Pt's escorted via wheelchair.
--- NOTE | 2024-01-05 13:22 | W.DCSUMMARY ---
Discharge Summary
Discharge Data
Date of Admission: 01/02/24
Date of Discharge: 01/05/24
-
Pending Results: No
Hospital Course
Principal Diagnosis:
Subacute diarrhea likely due to ulcerative colitis
Appendix mucocele
Pelvic mass likely due to broad ligament fibroid.
Chronic Diagnoses:�
Essential hypertension on losartan, chlorthalidone, nebivolol and amlodipine
Asthma, likely mild persistent on
Cont BAD CREDIT COLLECTOR inhaled steroids and nebs
Cont BAD CREDIT COLLECTOR montelukast
Consultations:�
Gastroenterology
Colorectal service
NEW BUSINESS CLERK
Procedures:�
C scope 01/01: noted Left sided colitis possible ulcerative colitis
Clinical course:�
This is a 68-year-old female, with past medical history as stated above, who presented to the hospital due to diarrhea ongoing for 1 month. She also complained of left-sided abdominal pain.
Problem 1:
Subacute diarrhea likely due to ulcerative colitis.
This was associated with severe proctocolitis.
Patient underwent colonoscopy this admission on 01/01: which noted Left sided colitis.
His colonic biopsies showed inflammatory bowel disease.
She was started with mesalamine and budesonide per GI.
She can continue to follow-up with GI outpatient.
Problem 2:
Appendix mucocele.
Calcified mass in the pelvis likely broad ligament fibroid.
Her initial CT AP noted Large 6.4 cm calcified mass in the right lower quadrant adjacent to the appendiceal mucocele, uterus, and urinary bladder causing mild extrinsic mass effect.
Her tumor markers AFP/CEA/CA 125/Chromogranin A/ Serotonin level were all unrevealing.
Her pelvic MRI noted appendiceal mucocele, calcified transmural fibroid in the uterine fundus, calcified anterior pelvic mass which may represent a broad ligament fibroid.
She can follow-up with GI outpatient for hysterectomy evaluation. Colorectal service can also consider appendectomy at the same time.
As for the rest of her medical problems, they were stable during her hospital stay.
Discharge Plan
-
Patient Disposition: Home (Routine Discharge)
Discharge Diagnosis/Procedures: Subacute diarrhea due to ulcerative colitis; Appendix mucocele; Calcified transmural fibroid in the uterine fundus and Calcified anterior pelvic mass likely a broad ligament fibroid; hypokalemia
Condition: Fair
Diet: As tolerated
Activity: As tolerated
Driving Restrictions: As prior to admission
Blood Work: BMP in 1 week, result to your PCP
Activity Restrictions/Additional Instructions:
IF your potassium level remains low, consider stopping chlorthalidone (this can be deferred to your PCP)
Start Budesonide and Mesalamine per GI
Follow up pathology report with the GI doctor
Referrals:
Leonor Bryant NP [Specified Professional Personl] - 01/30/24 3:45 pm (Please call to reschedule if you can not keep this appointment. If your insurance requires a referral please contact your primary care physician prior to your appointment. )
Pawan Tran MD [Active] - in one to two weeks
Dennys Santos MD [Family Provider] - in less than 1 week
Prescriptions:
Continued
levothyroxine 100 MCG tablet
100 mcg PO DAILY
alprazolam 0.25 MG tablet
0.25 mg PO BID
Patient Comments:
09/01/2022: last filled 08/30/22, 60 tabs for 30 days from [facility]
fluticasone propionate 1 SPRAY spray,suspension
1 spray intranasal DAILY
cholecalciferol (vitamin D3) [Vitamin D3] 2,000 UNIT capsule
2,000 unit PO DAILY
ipratropium-albuterol 3 ML solution for nebulization
3 ml inhalation R BID
Patient Comments:
0.5mg/3mg/3ml
cetirizine 10 MG tablet
10 mg PO HS
budesonide 0.5 MG/2 ML suspension for nebulization
0.5 mg inhalation R BID
Patient Comments:
pt states years ago
montelukast 10 MG tablet
10 mg PO HS
albuterol sulfate 1 PUFF HFA aerosol inhaler
2 puff inhalation R Q4 PRN (Reason: sob/wheezing)
Patient Comments:
pt states years ago
ascorbic acid (vitamin C) [Vitamin C] 500 MG tablet
1,000 mg PO DAILY Qty: 0
Women's 50 Plus Multivitamin 1 EACH tablet
1 ea PO DAILY
aspirin 81 mg tablet,delayed release (DR/EC)
81 mg PO DAILY
losartan 100 mg tablet
100 mg PO DAILY
rosuvastatin 5 mg tablet
5 mg PO DAILY
metronidazole 1 % gel
1 applic TOPICAL HS
Rx Instructions:
to rash on buttocks
nebivolol 2.5 mg tablet
2.5 mg PO DAILY
chlorthalidone 25 mg tablet
25 mg PO DAILY
amlodipine 10 mg tablet
10 mg PO DAILY
acetaminophen 325 mg Tablet
650 mg PO Q4HPRN PRN (Reason: fever >/= 100.4F, LOWE,mild pain) Qty: 0 0RF
Discontinued
docusate sodium 100 mg Capsule
200 mg PO HS
docusate sodium 100 MG capsule
300 mg PO DAILY
dexamethasone 6 mg tablet
6 mg PO DAILY Qty: 7 0RF
cephalexin 500 mg capsule
500 mg PO TID Qty: 21 0RF
dicyclomine 20 mg Tablet
20 mg PO BID
Discharge Orders:
Discharge Patient (As Directed); Ordered 01/05/24
Ordered By: Yanci Galo
Discharge Date and Time
Discharge Date/Time: 01/05/24 13:31
Print Language: LAO
== END 2024-01-05 13:31 | disposition home health service (06) | DRG 387 ==
LOC: 3 WEST ACU 15:31
PROVIDERS: Internal Medicine Gastroenterology; Nurse Practitioner; Registered Nurse; ADMITTING PHYSICIAN Internal Medicine; ATTENDING PHYSICIAN Internal Medicine; CONSULT PHYSICIAN Internal Medicine Gastroenterology; CONSULT PHYSICIAN Surgery; EMERGENCY PHYSICIAN Emergency Medicine; FAMILY PHYSICIAN Internal Medicine
PROC: 0DBE8ZX Excision of Large Intestine, Via Natural or Artificial Opening Endoscopic, Diagnostic (ICD-10-PCS; 2024-01-02)
DX: K51.50 Left sided colitis without complications (principal); K38.8 Other specified diseases of appendix; I10 Essential (primary) hypertension; D28.2 Benign neoplasm of uterine tubes and ligaments; J45.909 Unspecified asthma, uncomplicated; G47.33 Obstructive sleep apnea (adult) (pediatric); E03.9 Hypothyroidism, unspecified; E78.00 Pure hypercholesterolemia, unspecified; E87.6 Hypokalemia; D25.1 Intramural leiomyoma of uterus; F79 Unspecified intellectual disabilities; E66.9 Obesity, unspecified; Z68.35 Body mass index [BMI] 35.0-35.9, adult
CPT/HCPCS: 88305; 72197; 74177; 80048; 80053; 81003; 81015; 82105; 82378; 83690; 83735; 84260; 85025; 85027; 86140; 86304; 86316; 87070; 87086; 87324; 87449; 88342; 94640; 94660; 99285; A9575; Q9967

== ENCOUNTER 2024-01-18 22:38 | Inpatient (IN) | payer OTHER, SELFPAY ==
[2024-01-18] VITALS (12 sets, daily range): BP systolic 100–138; BP diastolic 48–65; BMI 35.7
[2024-01-18 14:35] LABS: % Basophils 0.6 % (0-2); % Eosinophils 0.4 % (0-6); % Immature Granulocytes 1.1 % (0-0.5); % Lymphocytes 7.6 % (20.5-51.1); % Monocytes 3.3 % (1.7-9.3); Absolute Basophils 0.1 10^3/uL (0-0.2); Absolute Eosinophils 0.1 10^3/uL (0-0.7); Absolute Immature Granulocytes 0.1 10^3/uL (0-0.05); Absolute Lymphocytes 0.9 10^3/uL (1.2-3.4); Absolute Monocytes 0.4 10^3/uL (0.1-0.6); Absolute Neutrophils 10.2 10^3/uL (1.4-6.5); Hematocrit 33.5 % (37.0-47.0); Hemoglobin 11.7 g/dL (12.0-16.0); Mean Corp Hgb Conc. 34.9 g/dL (33.0-37.0); Mean Corpuscular Volume 83.1 fL (81.0-99.0); Mean Platelet Volume 9.2 fL (7.4-10.4); Nucleated Red Blood Cells % 0 %; Platelet Count 228 10^3/uL (130-400); Red Blood Cell Count 4.03 10^6/uL (4.20-5.40); Red Cell Dist. Width 14.9 % (11.5-14.5); White Blood Cell Count 11.7 10^3/uL (4.8-10.8)
[2024-01-18 15:00] LABS: ALT (SGPT) 25 U/L (0-35); AST (SGOT) 27 U/L (14-36); Albumin 4.1 g/dl (3.5-5.0); Alkaline Phosphatase 63 U/L (38-126); Blood Urea Nitrogen 24 mg/dl (7-17); Calcium 9.2 mg/dl (8.4-10.2); Carbon Dioxide 28 mmol/L (22-30); Chloride 96 mmol/L (98-107); Glucose 121 mg/dl (70-99); Potassium 3.4 mmol/L (3.5-5.1); Sodium 134 mmol/L (135-145); Total Bilirubin 0.6 mg/dl (0.2-1.3); Total Protein 6.9 g/dl (6.3-8.2); eGFR > 60.00
[2024-01-18 15:38] LABS: Glucose - Point of Care 131 mg/dl (70-99)
--- NOTE | 2024-01-18 16:35 | ED.GENMED ---
History of Present Illness
General
Chief Complaint: Fever
Source: patient and other (Aunt)
Exam Limitations: none
Time Seen by Provider: 01/18/24 16:22
Nursing documentation reviewed up to this point in time: agreed with
Travel History
Have you had any contact with someone who has COVID-19?: No
Do you have any symptoms of coronavirus? Fever > 100 degrees, chills, cough, shortness of breath, sore throat, loss of taste or smell, muscle aches, or headache?: Yes
Symptoms:: fever
History of Present Illness
History of Present Illness:
68-year-old female presents to the emergency department due to a fever of 101 this morning. She was given Tylenol. She also had a state of altered mental status from baseline that did resolve. She was recently discharged with a new diagnosis of
ulcerative colitis, and is pending an appendectomy for mucocele.
Past History
Past History
ED Past Medical History: Asthma, HTN and Other (Learning disability, speech impediment)
ED Past Surgical History: Orthopedic
Social History
Tobacco: Non-smoker
Alcohol: None
Drug: None
Personal: Other (Lives with her sister)
Living: with family
Family History
Family History: Other (Father with coronary disease and CABG, father with carotid endarterectomy and stroke, family history of dementia)
Review of Systems
Review of Systems
Allergies reviewed?: Yes
All Other Systems: Not applicable
Constitutional: Reports fever
EENT: Reports no symptoms
Respiratory: Reports no symptoms
Cardiac: Reports no symptoms
ABD/GI: Reports no symptoms
: Reports no symptoms
Musculoskeletal: Reports no symptoms
Skin: Reports no symptoms
Neurological: Reports weakness
Endocrine: Reports no symptoms
Hematologic/Lymphatic: Reports no symptoms
Psychiatric: Reports no symptoms
Phy Exam
Physical Exam
Physical Exam:
Physical Exam
General: Fever 100.7
Neck: supple. no meningeal signs. normal posterior pharynx
Heart: s1/s2 regular rate and rhythm, no murmur. equal radial
pulses.
HEENT: Pupils equal round reactive to light, EOMI
Lungs: intermittent cough, rhonchi at bases bilaterally
Abdomen: normal bowel sounds. not tender. no CVAT
Neuro: alert and oriented to person place, developmental delay. no focal neurological deficits cranial nerves II through XII intact
Skin: no rash
Psychiatric: well kept. interactive and cooperative
Extremities: no edema. good distal pulses
Course
Orders/Labs/Results
Orders:
Orders
01/18/24 14:25
Complete Blood Count/With Diff Urgent
Comprehensive Metabolic Panel Urgent
Blood Culture Q30M
[place] Source: Blood/Venous
Specimen Description:
Comment: FROM 2 SEPARATE SITES
01/18/24 14:26
Lactic Acid Q4H
Comment: ON ICE, CANCEL 2ND ORDER IF FIRST LACTIC ACID LEVEL <2
01/18/24 15:40
EKG [Electrocardiogram (*1)] Urgent
Reason for Study: Other
Other Reason for Exam: unresponsive
EKG- Treatment ONCE
01/18/24 15:51
Blood Culture Q30M
[place] Source: Blood/Venous
Specimen Description:
Comment: FROM 2 SEPARATE SITES
01/18/24 17:15
CT Head W/o Iv Contrast Urgent
Comment:
Reason For Exam: episode altered mental status
01/18/24 17:55
Urinalysis Reflex To Culture Urgent
Date Specimen was Collected: 01/18/24
Time Specimen was Collected: 14:15
Urine Microscopic Reflex Cult Urgent
Urine Culture Urgent
[facility] [place] Source: U
Specimen Description:
Date Specimen was Collected: 01/18/24
Time Specimen was Collected: 14:15
01/18/24 18:31
CR Chest - 2 Views Urgent
Comment:
Reason For Exam: fever
01/18/24 19:45
COVID-19 Antigen Urgent
Source: Nasal Swab
Acetaminophen [Tylenol] 650 mg PO NOW STA
01/18/24 19:47
Influenza A+B Rapid Molecular Urgent
[facility] [place] Source: Nasal Swab
Specimen Description:
01/18/24 19:48
Cefepime HCl [Maxipime] 2,000 mg IV NOW STA
01/18/24 20:08
Vancomycin [Vancocin] 2,000 mg 0.9% Sodium Chloride 500 ml [Nss] 500 ml IV NOW
01/18/24 20:33
Procalcitonin Urgent
PCT Algorithmm Indication: Respiratory
Abnormal Lab Results
01/18/24 01/18/24 01/18/24
14:25 15:37 17:55
WBC 11.7 H 10^3/uL
(4.8-10.8)
RBC 4.03 L 10^6/uL
(4.20-5.40)
Hgb 11.7 L g/dL
(12.0-16.0)
Hct 33.5 L %
(37.0-47.0)
RDW 14.9 H %
(11.5-14.5)
Abs Immat Gran (auto) 0.1 H 10^3/uL
(0-0.05)
Absolute Neuts (auto) 10.2 H 10^3/uL
(1.4-6.5)
Absolute Lymphs (auto) 0.9 L 10^3/uL
(1.2-3.4)
Immature Gran % 1.1 H %
(0-0.5)
Neutrophils % 87.0 H %
(42.2-75.2)
Lymphocytes % 7.6 L %
(20.5-51.1)
Sodium 134 L mmol/L
(135-145)
Potassium 3.4 L mmol/L
(3.5-5.1)
Chloride 96 L mmol/L
(98-107)
BUN 24 H mg/dl
(7-17)
Glucose 121 H mg/dl
(70-99)
Leukocyte Esterase Rfl 1+ A
(Negative)
Urine Bacteria (Reflex) Few A
(Negative)
POC Glucose 131 H mg/dl
(70-99)
01/18/24 14:25
01/18/24 14:25
Vital Signs
Initial and Last Documented VS:
Initial Vital Signs
Temp Pulse Resp BP Pulse Ox
98.7 F 82 18 108/61 93
01/18/24 14:10 01/18/24 14:10 01/18/24 14:10 01/18/24 14:10 01/18/24 14:10
Last Documented Vital Signs
Temp Pulse Resp BP Pulse Ox
100.7 F H 86 22 137/65 95
01/18/24 19:43 01/18/24 19:43 01/18/24 19:43 01/18/24 19:43 01/18/24 19:43
MDM/Problems Addressed
Differential Diagnosis Includes:
Pneumonia, UTI, COVID, influenza
MDM/Problems Addressed:
68-year-old female with bilateral pneumonia, fever. IV cefepime and vancomycin ordered. Admit to hospitalist.
Chronic conditions affecting care: Asthma
Acute Exacerbation and/or Progression of Chronic Illness: Asthma
*Radiology
Radiology exam reviewed: preliminary read by ED provider (Chest x-ray shows bilateral pneumonia)
*Pulse Oximetry
Patient hypoxic: no
*EKG
Interpreted by ED Provider?: Yes
EKG Intrepretation Date: 01/18/24
EKG Intrepretation Time: 15:44
Interpretation: normal
Comparison EKG: no changes
Heart Rate: 69
Rate: normal
Rhythm: sinus
Ladora: normal axis
Interval: normal interval
QRS Pattern: normal QRS
Ischemia: no ischemia
*Epic Radiant Analyst Interpretation
Rate: normal
Interpretation: normal
Heart Rate: 66
Rhythm: sinus
*Critical Care Note
Total Time (30-74mins, 75-104mins- exclusive of procedures): Not Applicable
Data Reviewed
Review of Other/Old Records Reveals: Labs
Patient Management
Social determinants of health affecting care: Living situation
Discussion with other providers: Hospitalist
Escalation/DeEscalation of care consider admission/obs:
admit indicated
ED Attending Note
-
Portions of this chart may have been created with voice recognition software.� Occasional wrong word or��sound alike� substitutions may have occurred due to the inherent limitations of voice recognition software.
Discharge Plan
Departure
Patient Disposition: Admit
Date of Disposition: 01/18/24
Time of Disposition: 19:52
Admit to: Telemetry
Presentation/result/management discussed w/ accepting MD/DO: Hospitalist
Patient with high blood pressure during this ER visit?: Yes
Condition: Fair
Discharge Problem:
Bilateral pneumonia
Prescriptions:
No Action
levothyroxine 100 MCG tablet
100 mcg PO DAILY
alprazolam 0.25 MG tablet
0.25 mg PO BID
Patient Comments:
01/18/2024: last filled 12/27/23, 60 tabs for 30 days from [facility]
fluticasone propionate 1 SPRAY spray,suspension
1 spray intranasal DAILY
ipratropium-albuterol 3 ML solution for nebulization
3 ml inhalation R BID
Patient Comments:
0.5mg/3mg/3ml
cetirizine 10 MG tablet
10 mg PO DAILY
budesonide 0.5 MG/2 ML suspension for nebulization
0.5 mg inhalation R BID
montelukast 10 MG tablet
10 mg PO DAILY
albuterol sulfate 1 PUFF HFA aerosol inhaler
2 puff inhalation R Q4 PRN (Reason: sob/wheezing)
ascorbic acid (vitamin C) [Vitamin C] 500 MG tablet
1,000 mg PO DAILY Qty: 0
Women's 50 Plus Multivitamin 1 EACH tablet
1 ea PO DAILY
aspirin 81 mg tablet,delayed release (DR/EC)
81 mg PO DAILY
losartan 100 mg tablet
100 mg PO DAILY
rosuvastatin 5 mg tablet
5 mg PO HS
metronidazole 1 % gel
1 applic TOPICAL HS
Patient Comments:
01/18/2024: apply under belly and buttocks
nebivolol 2.5 mg tablet
2.5 mg PO DAILY
chlorthalidone 25 mg tablet
12.5 mg PO DAILY
amlodipine 10 mg tablet
10 mg PO DAILY
acetaminophen 325 mg Tablet
650 mg PO Q4HPRN PRN (Reason: fever >/= 100.4F, LOWE,mild pain) Qty: 0 0RF
gabapentin 100 mg capsule
200 mg PO HS
metronidazole 1 % Cream
1 applic TOPICAL DAILY
Patient Comments:
01/18/2024: apply to face
cholecalciferol (vitamin D3) 25 mcg (1,000 unit) Tablet
50 mcg PO DAILY
mesalamine 1.2 gram tablet,delayed release (DR/EC)
4.8 g PO DAILY
budesonide 9 mg tablet,delayed and ext.release
9 mg PO DAILY
Referrals:
Dennys Santos MD [Family Provider] -
Interventions
Interventions:
*Risk Screen - Suicide Last Done: 01/18/24 15:48
*General Assessment Last Done: 01/18/24 15:48
*Neglect/Abuse Screening Last Done: 01/18/24 15:48
ED- Fall Risk Assessment Last Done: 01/18/24 15:47
*ED COVID-19 Vaccine History Last Done: 01/18/24 15:48
ED- Pulmonary Assessment Last Done: 01/18/24 15:47
ED- Neurological Assessment Last Done: 01/18/24 15:47
ED- Cardiac Assessment Last Done: 01/18/24 15:47
Discharge Date and Time
Print Language: BULGARIAN
[2024-01-18 18:16] LABS: Urine Albumin Negative (Neg - Trace); Urine Bilirubin Negative (Negative); Urine Character Clear (Clear); Urine Color Yellow; Urine Glucose Negative (Negative); Urine Ketone Negative (Negative); Urine Leukocyte 1+ (Negative); Urine Nitrite Negative (Negative); Urine Occult Blood Negative (Negative); Urine Urobilinogen Negative (Neg - 1+)
[2024-01-18 18:27] LABS: Urine Bacteria Few (Negative); Urine Red Blood Cell 0-2 /HPF (0-2)
[2024-01-18] MEDS: TYLENOL 650 MG PO (20:43)
[2024-01-18] MEDS: VANCOCIN 540 MG IV (20:52)
[2024-01-18] MEDS: MAXIPIME 2000 MG IV (20:52)
[2024-01-18 21:37] LABS: COVID-19 Antigen Negative (Negative)
[2024-01-19] VITALS (13 sets, daily range): BP systolic 89–145; BP diastolic 53–69; PULSE 78–88; O2SAT 96; BMI 35.0; BMI 34.2
--- NOTE | 2024-01-19 00:06 | HPS.HSE ---
Family Physician
-
Family Physician: Dennys Santos
Chief Complaint
-
Fatigue, Fever
History of Present Illness
Patient is a 68y F with PMH significant for HTN, asthma, cognitive impairment and recent diagnosis of ulcerative colitis who presents to ED for evaluation of fatigue and fever at home. History obtained from patient and from her sister at the
bedside. Patient was recently admitted to from 01/01 - 01/04 secondary to abdominal pain / diarrhea. She was found to have evidence of IBD / ulcerative colitis and was started on budesonide and mesalamine during that stay. Patient was also noted
to have an appendix abnormality c/w mucocele and calcified pelvic mass concerning for calcified fibroid. Patient was to see surgical services as an outpatient to arrange eventual hysterectomy and appendectomy.
Family states that patient was doing fairly well until yesterday when she seemed to be very tired, sluggish and fatigue.
Today, the visiting nurse checked her temperature and noted that it was 101.4 at home. Patient was brought to the ED for further evaluation.
While in the waiting room, patient reportedly had an episode of unresponsiveness lasting several moments wherein she would not answer questions or respond to her aide. This is not typical for her.
Patient has not been noted to have any specific or focal issues including cough, vomiting, diarrhea, etc.
Family notes that patient never admits to any symptoms or complaints and always states that she is 'fine'.
Medical History
Past Medical History
Past Medical History: Reports Other
Additional Past Medical History:
Ulcerative Colitis
Hypothyroidism
Cognitive Impairment
Asthma
Hypertension
Migraine Headaches
Spinal Stenosis
OKSANA on CPAP
[id number] deficiency
Gout
GERD
Past Surgical History: Reports Other
Additional Past Surgical History:
Right TKA
Cataracts
Left TSA
Social History
Unable to obtain full social history at this time due to: Other (Intellectual developmental delay)
Tobacco: Non-smoker
Alcohol: None
Drug: None
Personal: Single
Living: With Family
Employment: Disabled
Family History
Family History: Hypertension
Allergies / Home Medications
Allergies reflects when Allergies were last updated in [facility].
Home Medications with original date entered in [facility]
Allergy/Medication List:
Allergies
Allergy/AdvReac Type Severity Reaction Status Date / Time
amoxicillin [From Augmentin] Allergy Unknown Verified 01/18/24 15:46
citric acid* Allergy Rash Verified 01/18/24 15:46
clarithromycin [From Biaxin] Allergy Unknown Verified 01/18/24 15:46
clavulanic acid Allergy Unknown Verified 01/18/24 15:46
[From Augmentin]
codeine Allergy Unknown Verified 01/18/24 15:46
lisinopril Allergy Anaphylaxis, Verified 01/18/24 15:46
Angioedema
Penicillins Allergy SEE BELOW Verified 01/18/24 15:46
Tetracyclines Allergy Unknown Verified 01/18/24 15:46
tomato [Tomato] Allergy Hives Verified 01/18/24 15:46
Home Medications
levothyroxine 100 mcg tablet 100 mcg PO DAILY Thyroid 02/10/13
alprazolam 0.25 mg tablet 0.25 mg PO BID Mental Health/Anxiety 11/15/17
fluticasone propionate 50 mcg/actuation nasal spray,suspension 1 spray intranasal DAILY Lung/breathing issues 11/15/17
budesonide 0.5 mg/2 mL suspension for nebulization 0.5 mg inhalation R BID Lung/breathing issues 10/19/19
cetirizine 10 mg tablet 10 mg PO DAILY Allergies 10/19/19
ipratropium 0.5 mg-albuterol 3 mg (2.5 mg base)/3 mL nebulization soln 3 ml inhalation R BID Lung/breathing issues 10/19/19
montelukast 10 mg tablet 10 mg PO DAILY Lung/breathing issues 10/19/19
albuterol sulfate 90 mcg/actuation aerosol inhaler 2 puff inhalation R Q4 PRN sob/wheezing 07/10/20
ascorbic acid (vitamin C) 500 mg tablet (Vitamin C) 1,000 mg PO DAILY Supplement ##0 07/10/20
jfeujlfc-oed-kxnbq ac 400 mcg-calcium carb 500 mg-vit K1 20 mcg tablet (Women's 50 Plus Multivitamin) 1 ea PO DAILY Supplement 05/12/21
amlodipine 10 mg tablet 10 mg PO DAILY Blood pressure 09/01/22
aspirin 81 mg tablet,delayed release 81 mg PO DAILY Blood clot prevention/tx 09/01/22
chlorthalidone 25 mg tablet 12.5 mg PO DAILY Blood pressure 09/01/22
losartan 100 mg tablet 100 mg PO DAILY Blood pressure 09/01/22
metronidazole 1 % topical gel 1 applic topical HS Skin issues 09/01/22
nebivolol 2.5 mg tablet 2.5 mg PO DAILY Heart disease/condition 09/01/22
rosuvastatin 5 mg tablet 5 mg PO HS High cholesterol 09/01/22
acetaminophen 325 mg tablet 650 mg (2 x 325 mg) PO Q4HPRN PRN fever >/= 100.4F, LOWE,mild pain #0 tabs 09/04/22
budesonide 9 mg tablet,delayed and extended release 9 mg PO DAILY 01/18/24
cholecalciferol (vitamin D3) 25 mcg (1,000 unit) tablet 50 mcg PO DAILY 01/18/24
gabapentin 100 mg capsule 200 mg PO HS 01/18/24
mesalamine 1.2 gram tablet,delayed release 4.8 g PO DAILY 01/18/24
metronidazole 1 % topical cream 1 applic topical DAILY 01/18/24
Review of Systems
-
History Source: Patient
A 12 point ROS was completed and negative except as noted: Yes
Constitutional: Reports Fever and Fatigue; Denies Chills
EENT: Denies Sore Throat
Respiratory: Denies Cough or Trouble Breathing
Cardiac: Denies Chest Pain or Palpitations
Abdomen/GI: Reports Abdominal Pain and Diarrhea; Denies Nausea, Vomiting, Constipated, Bloody Stools, Black Stools or Anorexia
: Denies Dysuria, Frequency or Flank Pain
Musculoskeletal: Denies Joint Pain or Edema
Neurological: Denies Dizzy or Headache
Psych: Denies Depression or Anxiety
Physical Exam
Vital Signs
Vital Signs
Temp Pulse Resp BP Pulse Ox
100.0 F 74 26 100/48 94
01/18/24 22:30 01/18/24 23:15 01/18/24 23:15 01/18/24 23:00 01/18/24 23:15
Physical Exam
General: Other (68y F in no acute distress. Awake and alert and interactive.)
HEENT: Moist mucous membranes, PERRLA and Other (Thick neck.)
Respiratory: Other (Decreased at bases with few fine rales. No wheeze / rhonchi.)
Cardiac: S1/S2 and Regular Rhythm; No Murmur
GI: Other (Obese, pos BS. Pos tenderness in the LLQ region without rebound / guarding.)
Musculoskeletal: No Clubbing, No Cyanosis and No Edema
Neuro: Awake, Alert and Nonfocal/grossly intact
Laboratory Results
-
01/18/24 14:25
01/18/24 14:25
Laboratory Results
Lactic Acid Cancelled 01/18/24 18:15
Total Bilirubin 0.6 mg/dl (0.2-1.3) 01/18/24 14:25
AST 27 U/L (14-36) 01/18/24 14:25
ALT 25 U/L (0-35) 01/18/24 14:25
Alkaline Phosphatase 63 U/L (38-126) 01/18/24 14:25
Impression/Plan
-
A/P: Patient is a 68y F with PMH significant for hypertension, asthma and recent diagnosis of ulcerative colitis who presents to ED for evaluation of fatigue and fever noted at home.
Fever
Fatigue
- Admit for further evaluation and treatment.
- Etiology of her symptoms is unclear at this time.
- No compelling evidence for pneumonia in absence of pulmonary symptoms, cough.
- CXR appears unremarkable to me and any basilar opacities are likely on the basis of atelectasis > pneumonia.
- GI / abdominal etiology seems more likely given recent events.
- Patient admits to some recurrence of diarrhea starting today.
- Will observe off of any additional abx for now.
- Follow-up culture data.
- Monitor for any new / focal symptoms or complaints.
- Follow fever curve, labs, etc.
Ulcerative Colitis
- Had severe proctocolitis on recent admission and current symptoms may be recurrence of the same.
- Continue current budesonide and mesalamine.
- Will hold on IV steroids or abx for now.
- GI re-evaluation for additional recommendations.
Appendix Mucocele
Calcified Fibroid
- Seems unlikely that these findings are contributing to her current presentation.
- Follow-up with [facility] and Surgery as an outpatient for eventual hysterectomy / appendectomy.
Mild Hypokalemia
- IVFs overnight. Follow for improvement.
Benign Hypertension
- Stable. Continue outpatient meds with holding parameters.
Mild Persistent Asthma
- Stable. No current respiratory complaints.
- Continue Singulair.
- Nebs PRN.
Hypothyroidism
- Stable. Continue current T4 supplementation.
OKSANA
- Stable. Continue CPAP at HS.
DVT Prophylaxis: Lovenox
Code Status: Full
[2024-01-19] MEDS: DUONEB 3 ML INH ×3 (00:36→20:50)
[2024-01-19] MEDS: LR 1000 IV ×2 (00:37→09:28)
--- NOTE | 2024-01-19 00:48 | PTCARENOTE ---
Received pt from ER 0015. Pt AAOx2, VSS. Sister at bedside. Oriented patient and sister to room, call stringer and plan of care.
[2024-01-19] MEDS: SYNTHROID 100 MCG PO (05:45)
[2024-01-19 06:06] LABS: Hematocrit 31.7 % (37.0-47.0); Hemoglobin 10.8 g/dL (12.0-16.0); Mean Corp Hgb Conc. 34.1 g/dL (33.0-37.0); Mean Corpuscular Hgb 28.6 pg (27.0-31.0); Mean Corpuscular Volume 84.1 fL (81.0-99.0); Mean Platelet Volume 9.9 fL (7.4-10.4); Platelet Count 169 10^3/uL (130-400); Red Blood Cell Count 3.77 10^6/uL (4.20-5.40); Red Cell Dist. Width 14.8 % (11.5-14.5); White Blood Cell Count 9.4 10^3/uL (4.8-10.8)
[2024-01-19 06:33] LABS: Blood Urea Nitrogen 19 mg/dl (7-17); Calcium 8.7 mg/dl (8.4-10.2); Carbon Dioxide 28 mmol/L (22-30); Chloride 99 mmol/L (98-107); Estimated Creatinine Clearance 71 ml/min; Glucose 121 mg/dl (70-99); Potassium 2.9 mmol/L (3.5-5.1); Sodium 136 mmol/L (135-145); eGFR > 60.00
[2024-01-19 07:09] LABS: Erythrocyte Sed Rate 21 mm/hour (0-20)
[2024-01-19] MEDS: PULMICORT 0.5 MG INH ×2 (07:50→20:50)
[2024-01-19] MEDS: KCL 40 MEQ PO (09:27)
[2024-01-19] MEDS: BYSTOLIC 2.5 MG PO (09:28)
[2024-01-19] MEDS: SINGULAIR 10 MG PO (09:28)
[2024-01-19] MEDS: ENTOCORT EC 9 MG PO (09:28)
[2024-01-19] MEDS: OMNIPAQUE 50 ML PO (09:46)
--- NOTE | 2024-01-19 10:55 | CON.GI ---
Addendum entered and electronically signed by Leonor Bryant NP 01/19/24 16:11:
CT image did show fecal burden in the rectum. She is likely having overflow diarrhea 2/2 to this. Colitis has improved per radiology reading. Ordered enema x1. If no improvement may need manual disimpaction v repeat enema w/ MoM enema.
Addendum entered and electronically signed by Sheila Ybarra DO 01/19/24 12:49:
I saw and examined the patient.
The WOOD BOAT BUILDER SUPERVISOR or PA's note was reviewed and I agree with the note.
Comment: Kim is a 68-year-old female with past medical history of hypertension, asthma, learning disability, recent diagnosis of ulcerative colitis and started on budesonide 9 mg daily and Lialda 4.8 g daily admitted with fever and altered mental
status which started yesterday. She was noted to have periods of unresponsiveness, described as her eyes rolling to the back of her head by her sister. CT head on arrival was negative for acute pathology. Temperature at home was one 1.4. GI was
consulted due to concern for possible new diagnosis of ulcerative colitis playing a role in her presentation. Per patient and family, her symptoms improved tremendously following implementation of mesalamine and budesonide, having approximately 1
loose bowel movement daily. No longer having bloody diarrhea or nocturnal symptoms. On exam patient does have some tenderness to palpation in her left lower quadrant as well as right upper quadrant, no rebound or guarding. Findings on CAT scan
from prior admission with large pelvic mass as well as appendiceal mucocele, colonoscopy with normal-appearing appendix. She was scheduled to see colorectal surgery yesterday but advised to go to the ER instead when she was found to be febrile.
Recommendations:
-Stool studies
-CT A/P w/ PO and IV Contrast
-Blood cultures
-Neuro eval if infectious workup negative
-continue mesalamine and budesonide at current doses
-check fecal calprotectin, CRP
Original Note:
Consultation
-
Date/Time Consultation Requested: 01/19/24 @ 00:11
Date/Time Consultation Performed: 01/19/24 @ 10:55
Requesting Provider: Dr. Reinoso
Performing Provider: ZEESHAN Treviño; Dr. Laura Reid
Reason for Consultation: UC / proctitis
Medical History
Chief Complaint / HPI
Chief Complaint: fatigue, fevere
History of Present Illness:
The patient is a 68-year-old female with a past medical history significant for hypertension, asthma, learning disability, recently diagnosis of ulcerative colitis/proctitis on mesalamine 4.8 g daily and budesonide 9 mg daily, who presents to the
emergency room with complaints of fatigue and fever. We are being asked to evaluate for possible GI component to the presenting symptoms. Upon review of prior records, the patient was admitted to the hospital t on 12/30 secondary to diarrhea with
blood in her stool. She underwent CT imaging which did show severe proctocolitis. She at that time had not had any colonoscopies. 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 She ultimately
underwent a colonoscopy on 01/01 with findings suggestive of left-sided ulcerative colitis. Biopsies did confirm this and were negative for CMV. She was evaluated by colorectal surgery given her appendiceal mucocele findings and was plan to
follow-up outpatient with them for possible appendectomy. She was also advised to follow-up with gynecology outpatient given findings of a pelvic mass for discussion of possible hysterectomy. From a GI standpoint she was discharged on mesalamine
4.8 g along with budesonide 9 mg daily and advised to follow-up outpatient.The patient's sister is at the bedside to assist with the HPI. She reportedly had been doing well after her prior discharge from here where she was recently diagnosed with
ulcerative colitis, but over the past few days her family reports that she was 'off.' She went a few days without a bowel movement then on Monday had a solid stool with subsequent looser stools into today. They do not recall seeing any
blood in her stool. They checked her temperature at home and it was found to be 101.4. Along with her fever she was not herself and was more lethargic than usual. She was scheduled to go see colorectal surgery yesterday but she was advised to go
to the ER for further evaluation given her altered mentation and fever. She reports that in the waiting area her sister and her did have an episode of unresponsiveness with her eyes open. This lasted for several minutes, and was taken back into
the ER where she underwent a CT of the brain which was unrevealing. She notes when she went to go for her x-ray was unable to stand to get onto the stretcher which is not normal for her. The patient denies any significant pain but does admit to
tenderness on the left lower side of her abdomen. She continues with looser stools without blood. She otherwise denies any nausea, no vomiting, chills, dysphagia, melena, hematochezia, or hematemesis. She has been compliant with the mesalamine
and budesonide. Noted this morning with a low blood pressure of 89/64, now normalized. Other pertinent lab findings on admission include WBC 11.7, hemoglobin 11.7, sodium 134, potassium 3.4, BUN 24, creatinine 0.8. Urinalysis did not reveal any
obvious signs of infection. A chest x-ray was done showing bilateral mild airspace opacities, question amount of pneumonia. She did receive 1 dose of IV vancomycin along with Maxipime 2 g but this was discontinued with out obvious source of
infection. She was started on IV fluids and admitted for further evaluation by GI.
Past Medical History
Past Medical History: Asthma, GERD, HTN, Hypothyroidism and Other (cognitive impairment, recently diagnosed ulcerative colitis, migraines, spinal stenosis, OKSANA on CPAP, A1AT deficiency, gout)
Past Surgical History: Orthopedic (Right TKA) and Other (cataract sx)
Social History
Tobacco: Non-Smoker
Alcohol: None
Drug: None
Living: With Family
Family History
Family History: Reviewed & Not Pertinent
Allergies / Home Medications
Allergy/AdvReac Type Severity Reaction Status Date / Time
amoxicillin [From Augmentin] Allergy Unknown Verified 01/18/24 15:46
citric acid* Allergy Rash Verified 05/16/24 15:46
clarithromycin [From Biaxin] Allergy Unknown Verified 01/18/24 15:46
clavulanic acid Allergy Unknown Verified 01/18/24 15:46
[From Augmentin]
codeine Allergy Unknown Verified 01/18/24 15:46
lisinopril Allergy Anaphylaxis, Verified 01/18/24 15:46
Angioedema
Penicillins Allergy SEE BELOW Verified 01/18/24 15:46
Tetracyclines Allergy Unknown Verified 01/18/24 15:46
tomato [Tomato] Allergy Hives Verified 01/18/24 15:46
�Medication �Instructions �Recorded
levothyroxine 100 mcg tablet 100 mcg PO DAILY Thyroid 02/10/13
alprazolam 0.25 mg tablet 0.25 mg PO BID Mental 11/15/17
Health/Anxiety
fluticasone propionate 50 1 spray intranasal DAILY 11/15/17
mcg/actuation nasal Lung/breathing issues
spray,suspension
budesonide 0.5 mg/2 mL suspension 0.5 mg inhalation R BID 10/19/19
for nebulization Lung/breathing issues
cetirizine 10 mg tablet 10 mg PO DAILY Allergies 10/19/19
ipratropium 0.5 mg-albuterol 3 mg 3 ml inhalation R BID 10/19/19
(2.5 mg base)/3 mL nebulization Lung/breathing issues
soln
montelukast 10 mg tablet 10 mg PO DAILY Lung/breathing 10/19/19
issues
albuterol sulfate 90 mcg/actuation 2 puff inhalation R Q4 PRN 07/10/20
aerosol inhaler sob/wheezing
ascorbic acid (vitamin C) 500 mg 1,000 mg PO DAILY Supplement ##0 07/10/20
tablet (Vitamin C)
vtoyfzom-cgh-rhqvk ac 400 1 ea PO DAILY Supplement 05/12/21
mcg-calcium carb 500 mg-vit K1 20
mcg tablet (Women's 50 Plus
Multivitamin)
amlodipine 10 mg tablet 10 mg PO DAILY Blood pressure 09/01/22
aspirin 81 mg tablet,delayed 81 mg PO DAILY Blood clot 09/01/22
release prevention/tx
chlorthalidone 25 mg tablet 12.5 mg PO DAILY Blood pressure 09/01/22
losartan 100 mg tablet 100 mg PO DAILY Blood pressure 09/01/22
metronidazole 1 % topical gel 1 applic topical HS Skin issues 09/01/22
nebivolol 2.5 mg tablet 2.5 mg PO DAILY Heart 09/01/22
disease/condition
rosuvastatin 5 mg tablet 5 mg PO HS High cholesterol 09/01/22
acetaminophen 325 mg tablet 650 mg (2 x 325 mg) PO Q4HPRN PRN 09/04/22
fever >/= 100.4F, LOWE,mild pain #0
tabs
budesonide 9 mg tablet,delayed and 9 mg PO DAILY Lung/Breathing Issues 01/18/24
extended release
cholecalciferol (vitamin D3) 25 50 mcg PO DAILY Supplement 01/18/24
mcg (1,000 unit) tablet
gabapentin 100 mg capsule 200 mg PO HS Neurological Condition 01/18/24
mesalamine 1.2 gram tablet,delayed 4.8 g PO DAILY 01/18/24
release
metronidazole 1 % topical cream 1 applic topical DAILY 01/18/24
Review of Systems
-
History Source: Patient and Family
All other systems: A 12 pt ROS was Negative except as stated above in HPI
Vital Signs
Temp Pulse Resp BP Pulse Ox
98.3 F 99 16 110/58 94
01/19/24 07:00 01/19/24 09:28 01/19/24 07:54 01/19/24 09:28 01/19/24 07:54
Physical Exam
Exam
General: Well Developed, Well Nourished, No Apparent Distress and Comfortable
HEENT: Normocephalic, Anicteric and Atraumatic
Respiratory: Clear
Cardiac: S1/S2 and Regular Rhythm
Breast: Deferred by me
GI: Soft, Normal Bowel Sounds, Tender (Generalized abdominal tenderness, more significant in the left lower quadrant) and Other (Obese abdomen)
Rectal: Deferred by Provider
Musculoskeletal: No Edema
Skin: Warm and Dry
Neuro: Awake and Alert
Psych: Calm
Results
WBC 9.4 10^3/uL (4.8-10.8) 01/19/24 05:08
Hgb 10.8 g/dL (12.0-16.0) L 01/19/24 05:08
Hct 31.7 % (37.0-47.0) L 01/19/24 05:08
MCV 84.1 fL (81.0-99.0) 01/19/24 05:08
Plt Count 169 10^3/uL (130-400) D 01/19/24 05:08
Absolute Neuts (auto) 10.2 10^3/uL (1.4-6.5) H 01/18/24 14:25
Sodium 136 mmol/L (135-145) 01/19/24 05:08
Potassium 2.9 mmol/L (3.5-5.1) L 01/19/24 05:08
Chloride 99 mmol/L (98-107) 01/19/24 05:08
Carbon Dioxide 28 mmol/L (22-30) 01/19/24 05:08
BUN 19 mg/dl (7-17) H 01/19/24 05:08
Creatinine 0.7 mg/dL (0.6-1.0) 01/19/24 05:08
Calcium 8.7 mg/dl (8.4-10.2) 01/19/24 05:08
Total Bilirubin 0.6 mg/dl (0.2-1.3) 01/18/24 14:25
AST 27 U/L (14-36) 01/18/24 14:25
ALT 25 U/L (0-35) 01/18/24 14:25
Alkaline Phosphatase 63 U/L (38-126) 01/18/24 14:25
Diagnostic Image Results:
01/18/24 CXR: IMPRESSION:
Mild bibasilar airspace disease suspicious for pneumonia.
01/18/24 CT head: No acute intracranial abnormality noted.
01/04/2024 Pelvic MRI: IMPRESSION:
1. Appendiceal mucocele.
2. Calcified transmural fibroid in the uterine fundus.
3. Calcified anterior pelvic mass positioned slightly further left laterally compared to the recent CT. This may represent a broad ligament fibroid. A calcified mesenteric tumor would be an alternative consideration.
4. Improving proctocolitis.
12/31/23 CT A/P:
IMPRESSION:
1. MODERATE to SEVERE ACUTE PROCTOCOLITIS involving the sigmoid colon and rectum which has increased since 12/24/2023. Diagnostic possibilities are (1) acute infectious colitis or (2) inflammatory bowel disease (either ulcerative colitis or Crohn's
disease).
2. Mild to moderate pericolonic lymphadenopathy in the pelvis which is likely reactive and less likely metastatic in etiology.
3. 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
4. Large 6.4 cm calcified mass in the right lower quadrant adjacent to the appendiceal mucocele, uterus, and urinary bladder causing mild extrinsic mass effect. Diagnostic possibilities are (1) a large calcified pedunculated uterine leiomyoma or
(2) a calcified mesenteric tumor.
5. 3.9 cm calcified leiomyoma in the uterine fundus.
6. Mild hepatomegaly.
7. Small hiatal hernia.
8. Severe multilevel discogenic degenerative disease and facet joint arthrosis in the lumbar spine.
Prior GI Procedures:
EGD: none
Colonoscopy: 01/02/24 Dr. Lal: Left sided colitis as decribed above, more likely UC, less likely sterceral, doubt CMV though did have some deeper rectal ulcerations. Biopsied. The examined portion of the ileum was normal. The cecum, ileum and
appendiceal oriface were normal. Bx consistent with UC, neg for CMV.
Assessment / Plan
-
The patient is a 68-year-old female with a past medical history significant for hypertension, asthma, learning disability, recently diagnosis of ulcerative colitis/proctitis on mesalamine 4.8 g daily and budesonide 9 mg daily, who presents to the
emergency room with complaints of fatigue and fever. We are being asked to evaluate for possible GI component to the presenting symptoms. She was recently seen at [facility] several weeks ago diagnosed with new ulcerative proctocolitis
started on mesalamine 4.8 g daily and budesonide 9 mg daily, now presenting again with altered mental status and fever of unclear origin. Urinalysis did not show any obvious signs of infection. Chest x-ray showing bilateral mild airspace
opacities, questioning pneumonia although without any overt respiratory symptoms or hypoxia. Her family notes some acute onset of diarrhea, which may be secondary to overflow given she had some constipation recently. Stool studies are pending.
Discussed with the hospitalist, and pending CT of the abdomen and pelvis for further evaluation.
Problem list:
--recently diagnosed severe uclerative proctocolitis, started on Lialda and entercort
-fever of unclear etiology
-pelvic mass, ?calcified fibroid
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
-constipation
-altered mental status
-bibasilar opacities, ?pneumonia
-hypokalemia
-acute/chronic normocytic anemia
Other pertinent medical hx:
-Hypertension
-Asthma
-Learning disability
Recommendations:
-Etiology of presenting symptoms unclear. At this time agree with CT of the abdomen and pelvis for further evaluation given her recent complicated hospitalization, and newly diagnosed ulcerative colitis. May be appendiceal etiology given the
appendiceal mucocele findings on prior imaging versus abscess versus other.
-Await CT for further recommendation
-Obtain stool studies to rule out infectious etiology
-Continue n.p.o. until imaging is completed
-Follow blood cultures
-Also with reported possible syncopal episodes and weakness. CT of the brain imaging was negative. I did send a [place] text to the hospitalist as the family was asking in regards to a neuro eval.
-Monitor blood pressure and maintain adequate perfusion
-IV fluids
-Continue mesalamine 4.8 g daily and Entocort 9 mg daily for now but may need to stop steroids with concern for possible infection
-Monitor electrolytes and replete as per hospitalist
-Monitor for recurrent fevers
-Follow WBC count
-Will follow
-
-
Thank you for consultation and allowing me to participate in the patient's care. Please call the collision worker GI physician during the after hours with any questions or concerns.
--- NOTE | 2024-01-19 15:08 | W.PN.UPDATE ---
Update Note
Progress Note Update
Nonbillable note
Fever episode -no other supportive signs of ongoing sepsis. Chest x-ray/UA clear. CT abdomen pelvis with IV and oral contrast done and changes of proctoscopy colitis has been improved no other new findings. Blood culture pending. Being held off
of antibiotic. If patient spikes another fever blood culture should be repeated and should be started on zosyn for covearge.
Syncope -patient hypotensive likely orthostasis episode. Orthostatic vitals negative in the morning. Losartan/amlodipine held continue nebivolol only.
Ulcerative colitis -patient symptoms improved with budesonide/mesalamine therapy. GI on board and ordered stool test.
Hypokalemia -replace as needed
--- NOTE | 2024-01-19 17:10 | PTCARENOTE ---
Administered tap water enema with apparent success per order. Patient has been having loosely formed stools/occasional diarrhea throughout shift.
[2024-01-19] MEDS: LOVENOX 40 MG SC (18:00)
[2024-01-19] MEDS: NON-FORMULARY ITEM 4.79999999999999982 GRAMS PO (18:01)
[2024-01-19] MEDS: CRESTOR 5 MG PO (21:29)
[2024-01-19] MEDS: NEURONTIN 200 MG PO (21:29)
[2024-01-20] VITALS (7 sets, daily range): BP systolic 99–151; BP diastolic 48–80; PULSE 76–84; BMI 34.6
[2024-01-20] MEDS: SYNTHROID 100 MCG PO (06:01)
[2024-01-20 06:54] LABS: Hematocrit 28.3 % (37.0-47.0); Hemoglobin 9.8 g/dL (12.0-16.0); Mean Corp Hgb Conc. 34.6 g/dL (33.0-37.0); Mean Corpuscular Hgb 28.5 pg (27.0-31.0); Mean Corpuscular Volume 82.3 fL (81.0-99.0); Mean Platelet Volume 10.9 fL (7.4-10.4); Platelet Count 136 10^3/uL (130-400); Red Blood Cell Count 3.44 10^6/uL (4.20-5.40); Red Cell Dist. Width 14.9 % (11.5-14.5); White Blood Cell Count 6.6 10^3/uL (4.8-10.8)
[2024-01-20 07:17] LABS: Blood Urea Nitrogen 14 mg/dl (7-17); Calcium 8.6 mg/dl (8.4-10.2); Carbon Dioxide 27 mmol/L (22-30); Chloride 97 mmol/L (98-107); Estimated Creatinine Clearance 71 ml/min; Glucose 111 mg/dl (70-99); Potassium 3.1 mmol/L (3.5-5.1); Sodium 133 mmol/L (135-145); eGFR > 60.00
[2024-01-20] MEDS: ENTOCORT EC 9 MG PO (07:55)
[2024-01-20] MEDS: BYSTOLIC 2.5 MG PO (07:55)
[2024-01-20] MEDS: SINGULAIR 10 MG PO (07:55)
[2024-01-20] MEDS: NON-FORMULARY ITEM 4 GRAMS PO (07:58)
[2024-01-20] MEDS: PULMICORT 0.5 MG INH ×2 (08:22→20:22)
--- NOTE | 2024-01-20 10:31 | W.PN.HOSP.TC ---
Today's Communication/Plan
-
continue current care
discharge tomorrow
Assessment / Plan
Assessment / Plan
Fever of unclear origin
Fatigue
-Chest x-ray/UA/COVID/flu/CT abdomen pelvis did not show any clear source
-Blood culture remains negative so far
-Stool culture preliminary report negative so far. C. difficile negative.
-No further fever off of antibiotics.
-Possible mild reaction with ulcerative colitis?
Ulcerative Colitis
-CT abdomen pelvis showing improving changes of lymphadenopathy and colitis.
-Continue current budesonide and mesalamine.
-GI following and help appreciated.
Appendix Mucocele
Calcified Fibroid
- CT a/p showing stable findings.
- Follow-up with BEN[employer] PRESS OPERATOR and Surgery as an outpatient for eventual hysterectomy / appendectomy.
Mild Hypokalemia
- replaced today
Benign Hypertension
Brief syncope
- hold losartan/chlorthalidone/norvasc at this point
- continue nebivolol only
- No arrthymia on telemetry
- Brief syncopal episode likely with Hypotension. Question of seizure by family although no reported generalized shaking movement.
- Orthostatic vitals has been negative.
Mild Persistent Asthma
- Stable. No current respiratory complaints.
- Continue Singulair.
- Nebs PRN.
Hypothyroidism
- Stable. Continue current T4 supplementation.
OKSANA
- Stable. Continue CPAP at HS.
DVT Prophylaxis: Lovenox
Code Status: Full
Discussed with GI.
All questions answered
Anticipated Discharge: Within 24 hours
Subjective/Interval History
-
Date of Service: January 20, 2024
Patient sitting comfortably in chair
Denies any episode of dizziness/syncope
Had episode of explosive diarrhea in afternoon
No further episodes of fever
Objective Data
-
Labs:
Laboratory Results
01/20/24
05:55
WBC 6.6
Hgb 9.8 L
Hct 28.3 L
Plt Count 136
Sodium 133 L
Potassium 3.1 L
Chloride 97 L
Carbon Dioxide 27
BUN 14
Creatinine 0.7
Glucose 111 H
Calcium 8.6
Vital Signs:
Vital Signs
Temp Pulse Resp BP Pulse Ox
98.9 F 82 16 106/48 98
01/20/24 07:01 01/20/24 08:45 01/20/24 08:45 01/20/24 07:01 01/20/24 08:45
I&O
01/19/24 01/20/24 01/21/24
06:59 06:59 06:59
Intake Total 0 / 0 240 / 240
Balance 0 / 0 240 / 240
Review of Systems
-
Respiratory: Reports No Symptoms
Cardiac: Reports No Symptoms
Abdomen/GI: Reports No Symptoms
Physical Exam
-
General: Comfortable
HEENT: Negative Oxygen
Respiratory: Clear to Auscultation
Cardiac: Regular Rhythm and S1/S2; Negative Murmur
GI: Soft, Nontender and Nondistended
Musculoskeletal: No Clubbing
Neuro: Awake, Alert, Oriented and No Motor Deficits
Psych: Calm and Intact Judgement/Insight
[2024-01-20] MEDS: KCL 40 MEQ PO (10:44)
--- NOTE | 2024-01-20 12:31 | W.PN.GI.CBS2 ---
Today's Communication / Plan
-
Nothing to add today. GI will sign off
Assessment / Plan
-
The patient is a 68-year-old female with a past medical history significant for hypertension, asthma, learning disability, recently diagnosis of ulcerative colitis/proctitis on mesalamine 4.8 g daily and budesonide 9 mg daily, who presents to the
emergency room with complaints of fatigue and fever. We are being asked to evaluate for possible GI component to the presenting symptoms. She was recently seen at [facility] several weeks ago diagnosed with new ulcerative proctocolitis
started on mesalamine 4.8 g daily and budesonide 9 mg daily, now presenting again with altered mental status and fever of unclear origin. Urinalysis did not show any obvious signs of infection. Chest x-ray showing bilateral mild airspace
opacities, questioning pneumonia although without any overt respiratory symptoms or hypoxia. Her family notes some acute onset of diarrhea, which may be secondary to overflow given she had some constipation recently. Stool studies are pending.
Discussed with the hospitalist, and pending CT of the abdomen and pelvis for further evaluation.
Problem list:
--recently diagnosed severe uclerative proctocolitis, started on Lialda and entercort
-fever of unclear etiology
-pelvic mass, ?calcified fibroid
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
-constipation
-altered mental status
-bibasilar opacities, ?pneumonia
-hypokalemia
-acute/chronic normocytic anemia
Other pertinent medical hx:
-Hypertension
-Asthma
-Learning disability
Recommendations:
#fever/change in mental status
-- Discussed with the hospitalist. No etiology found. Cultures have been negative, imaging unrevealing including CT scan
--Antibiotics have been on hold, no further fevers or leukocytosis
# Left-sided ulcerative colitis -new diagnosis in December
--Appears to be improving based on clinical symptoms as well as stools show rare WBCs and CT scan shows no significant inflammation of the colon which is much improved from prior scan
--Continue the budesonide the patient has follow-up with Dr. Connor at the end of the month
-- Continue mesalamine 4.8 g daily and Entocort 9 mg daily
# Appendiceal abnormality, suspected mucocele and pelvic mass
--- CT scan on 01/19/2024 shows a stable 7.2 cm rim calcified probable appendiceal mucocele in the right lower quadrant - has surgical outpatient appointment next Monday
--And a stable 6.4 cm calcified right lower quadrant mass adjacent to the mucocele -patient has follow-up with a surgical spray machine loader onc next week
I would send her home on something for constipation like half a capful of MiraLAX every day. I discussed with her family the possibility of doing a Dulcolax suppository if she has a day without a bowel movement considering she had a large ball of
stool in the rectum. It can be difficult to discern in the setting of having ulcerative colitis if she has overflow from constipation versus IBD flare/symptoms
GI will sign off. Please call with questions
Subjective
Subjective
Date of Service: January 20, 2024
Felisha is feeling better. No significant diarrhea, no blood in her stools, she is eating well
Objective
Data Reviewed
Laboratory Data:
Laboratory Results
01/20/24 05:55
01/20/24 05:55
Laboratory Results
Total Bilirubin 0.6 mg/dl (0.2-1.3) 01/18/24 14:25
AST 27 U/L (14-36) 01/18/24 14:25
ALT 25 U/L (0-35) 01/18/24 14:25
Alkaline Phosphatase 63 U/L (38-126) 01/18/24 14:25
Vital Signs and I&O:
Vital Signs
Temp Pulse Resp BP Pulse Ox
97.8 F 80 16 122/56 95
01/20/24 11:23 01/20/24 11:23 01/20/24 11:23 01/20/24 11:23 01/20/24 11:23
I&O
01/19/24 01/20/24 01/21/24
06:59 06:59 06:59
Intake Total 0 / 0 240 / 240
Balance 0 / 0 240 / 240
Physical Exam
Physical Exam
HEENT: Anicteric
Pulmonary: Clear
GI: Soft and Tender
Extremities: No Edema
Neuro: Non Focal
--- NOTE | 2024-01-20 15:21 | CM ---
Patient seen bedside.
IA completed.
Patient lives with sister in a 3 story home.
Home has 4-5 steps to enter,.
patient ambulates without assistive devices.
Patient does not drive.
PCP; DR Santos
Pharmacy: [facility]- ? Christine Breen.
Plan:home no needs.
[2024-01-20] MEDS: LOVENOX 40 MG SC (17:37)
[2024-01-20] MEDS: DUONEB 3 ML INH (20:25)
[2024-01-20] MEDS: NEURONTIN 200 MG PO (21:59)
[2024-01-20] MEDS: CRESTOR 5 MG PO (21:59)
[2024-01-21 03:53] VITALS: BP 136/67
[2024-01-21] MEDS: SYNTHROID 100 MCG PO (05:47)
[2024-01-21 06:00] VITALS: BMI 34.0
[2024-01-21 07:21] VITALS: BP 124/64
[2024-01-21] MEDS: ENTOCORT EC 9 MG PO (08:37)
[2024-01-21] MEDS: BYSTOLIC 2.5 MG PO (08:38)
[2024-01-21] MEDS: SINGULAIR 10 MG PO (08:38)
[2024-01-21] MEDS: NON-FORMULARY ITEM 4.79999999999999982 GRAMS PO (08:38)
[2024-01-21] MEDS: PULMICORT 0.5 MG INH (08:47)
[2024-01-21] MEDS: DUONEB 3 ML INH (08:47)
[2024-01-21 09:14] LABS: Hemoglobin 11.2 g/dL (12.0-16.0); Mean Corp Hgb Conc. 33.9 g/dL (33.0-37.0); Mean Corpuscular Hgb 28.5 pg (27.0-31.0); Mean Platelet Volume 10.6 fL (7.4-10.4); Platelet Count 158 10^3/uL (130-400); Red Blood Cell Count 3.93 10^6/uL (4.20-5.40); Red Cell Dist. Width 14.6 % (11.5-14.5); White Blood Cell Count 8.8 10^3/uL (4.8-10.8)
[2024-01-21 09:31] LABS: Blood Urea Nitrogen 15 mg/dl (7-17); Calcium 9.4 mg/dl (8.4-10.2); Carbon Dioxide 29 mmol/L (22-30); Chloride 98 mmol/L (98-107); Estimated Creatinine Clearance 70 ml/min; Glucose 124 mg/dl (70-99); Sodium 138 mmol/L (135-145); eGFR > 60.00
[2024-01-21] MEDS: KCL 40 MEQ PO (10:55)
--- NOTE | 2024-01-21 10:55 | CM ---
Patient for d/c home today.
PT recommending VN, known to Debora, referral sent.
IMM completed.
Brother to transport.
Plan: home with [facility]
fax [phone]
[2024-01-21 11:46] VITALS: BP 123/65
--- NOTE | 2024-01-21 13:09 | W.PN.HOSP.TC ---
Today's Communication/Plan
-
d/c home
Assessment / Plan
Assessment / Plan
Fever of unclear origin
Fatigue
-Chest x-ray/UA/COVID/flu/CT abdomen pelvis did not show any clear source
-Blood culture remains negative so far
-Stool culture preliminary report negative so far. C. difficile negative.
-No further fever off of antibiotics.
-Possible mild reaction with ulcerative colitis?
Ulcerative Colitis
-CT abdomen pelvis showing improving changes of lymphadenopathy and colitis.
-Continue current budesonide and mesalamine.
-GI following and help appreciated.
Appendix Mucocele
Calcified Fibroid
- CT a/p showing stable findings.
- Follow-up with [facility] and Surgery as an outpatient for eventual hysterectomy / appendectomy.
Mild Hypokalemia
- replace again
Benign Hypertension
Brief syncope
- hold losartan/chlorthalidone/norvasc at this point
- continue nebivolol only
- No arrthymia on telemetry
- Brief syncopal episode likely with Hypotension. Question of seizure by family although no reported generalized shaking movement.
- Orthostatic vitals has been negative.
Mild Persistent Asthma
- Stable. No current respiratory complaints.
- Continue Singulair.
- Nebs PRN.
Hypothyroidism
- Stable. Continue current T4 supplementation.
[place]
- Stable. Continue CPAP at HS.
DVT Prophylaxis: Lovenox
Code Status: Full
Anticipated Discharge: Today
Subjective/Interval History
-
Date of Service: January 21, 2024
No other episodes syncope
Had episode of diarrhea again yesterday
No other acute issues
Objective Data
-
Labs:
Laboratory Results
01/21/24
09:01
WBC 8.8
Hgb 11.2 L
Hct 33.0 L
Plt Count 158
Sodium 138
Potassium 3.0 L
Chloride 98
Carbon Dioxide 29
BUN 15
Creatinine 0.7
Glucose 124 H
Calcium 9.4
Vital Signs:
Vital Signs
Temp Pulse Resp BP Pulse Ox
99.1 F 77 16 123/65 95
01/21/24 11:46 01/21/24 11:46 01/21/24 11:46 01/21/24 11:46 01/21/24 11:46
I&O
01/20/24 01/21/24 01/22/24
06:59 06:59 06:59
Intake Total 240 / 240 1740 / 1740 475 / 475
Balance 240 / 240 1740 / 1740 475 / 475
Review of Systems
-
Respiratory: Reports No Symptoms
Cardiac: Reports No Symptoms
Abdomen/GI: Reports Diarrhea
Physical Exam
-
General: Comfortable
HEENT: Negative Oxygen
Respiratory: Clear to Auscultation
Cardiac: Regular Rhythm and S1/S2; Negative Murmur
GI: Soft, Nontender and Nondistended
Musculoskeletal: No Clubbing
Neuro: Awake, Alert, Oriented and No Motor Deficits
Psych: Calm and Intact Judgement/Insight
--- NOTE | 2024-01-21 16:26 | W.DCSUMMARY ---
Discharge Summary
Discharge Data
Date of Admission: 01/18/24
Date of Discharge: 01/21/24
-
Pending Results: No
Hospital Course
Discharging Physician : Dr Parth Flood
Disposition : To home
Primary care physician : Dr Jerman santos
Principal Discharge diagnosis :
Fever of unclear origin
Syncope
Hypotension
Recurrent hypokalemia
Chronic Discharge diagnosis :
Ulcerative colitis
Appendix mucocele
Benign hypertension
Mild persistent asthma
Hypothyroidism
Obstructive sleep apnea
Hospital Course :
Patient is a 68-year-old female with above-mentioned past medical history was brought into ER for evaluation of fatigue and fever at home. History was gathered from patient family and patient has been recently diagnosed for ulcerative colitis
and started on mesalamine/budesonide therapy. On day of ER v presentation patient was checked by visiting nurse at home and was noted to have temperature of 101.4 F. In ER waiting area patient had episode of brief syncope without reported
generalized shaking movement. Patient was admitted to hospital for further monitoring of fever episode and workup. Septic workup was done including chest x-ray/UA/stool culture/COVID/blood culture and all were negative. CT abdomen pelvis was done
and patient was found to having stable findings of appendix mucocele and calcified fibroid. Changes of ulcerative colitis were getting better on CT scan.
GI was following along with patient having episodic explosive diarrhea. As mentioned above stool studies were negative for any pathological organism. GI recommended continue all of preadmission dose of mesalamine/budesonide. Also recommended for
patient to be given half dose MiraLAX daily. Patient to follow-up with GI in the office.
Patient syncope episode was felt to be related to hypotension/orthostasis. Patient on multiple blood pressure medication including chlorthalidone/losartan/Norvasc/nebivolol. Beside nebivolol all other medications were held. Patient blood pressure
improved and remained in systolic 110-130 range with only nebivolol therapy. At discharge discussed with family for patient to need to follow-up with cardiology for further discussion of restarting blood pressure medication. Advised against
starting chlorthalidone as with ongoing on and off loose stool patient having hypokalemia and requires replacement.
Patient was discharged home at this point.
Important imaging findings :
None
Procedure findings :
None
Discharge Plan
-
Patient Disposition: Home (Routine Discharge)
Discharge Diagnosis/Procedures: Fever of unclear origin, hypotension/syncope, Diarrhea, Hypokalemia
Condition: Fair
Diet: Regular and Other diet
Additional Diets: Potassium heavy diet
Activity: As tolerated
Driving Restrictions: No driving
Bathing Restrictions: OK to Shower
Blood Work: BMP in 1 week
Activity Restrictions/Additional Instructions:
Please follow up with cardiology or PCP office to follow up HTN meds
Referrals:
Dennys Santos MD [Family Provider] - in one week
Additional Discharge Medication Instructions: STOP taking chlorthalidone due to recurrent hypokalemia
Prescriptions:
New
polyethylene glycol 3350 [Miralax] 17 gram powder in packet
8.5 g PO DAILY Qty: 30 0RF
Rx Instructions:
HALF CUP DAILY
Continued
levothyroxine 100 MCG tablet
100 mcg PO DAILY
alprazolam 0.25 MG tablet
0.25 mg PO BID
Patient Comments:
01/18/2024: last filled 12/27/23, 60 tabs for 30 days from [facility]
fluticasone propionate 1 SPRAY spray,suspension
1 spray intranasal DAILY
ipratropium-albuterol 3 ML solution for nebulization
3 ml inhalation R BID
Patient Comments:
0.5mg/3mg/3ml
cetirizine 10 MG tablet
10 mg PO DAILY
budesonide 0.5 MG/2 ML suspension for nebulization
0.5 mg inhalation R BID
montelukast 10 MG tablet
10 mg PO DAILY
albuterol sulfate 1 PUFF HFA aerosol inhaler
2 puff inhalation R Q4 PRN (Reason: sob/wheezing)
ascorbic acid (vitamin C) [Vitamin C] 500 MG tablet
1,000 mg PO DAILY Qty: 0
Women's 50 Plus Multivitamin 1 EACH tablet
1 ea PO DAILY
aspirin 81 mg tablet,delayed release (DR/EC)
81 mg PO DAILY
rosuvastatin 5 mg tablet
5 mg PO HS
metronidazole 1 % gel
1 applic TOPICAL HS
Patient Comments:
01/18/2024: apply under belly and buttocks
nebivolol 2.5 mg tablet
2.5 mg PO DAILY
acetaminophen 325 mg Tablet
650 mg PO Q4HPRN PRN (Reason: fever >/= 100.4F, LOWE,mild pain) Qty: 0 0RF
gabapentin 100 mg capsule
200 mg PO HS
metronidazole 1 % Cream
1 applic TOPICAL DAILY
Patient Comments:
01/18/2024: apply to face
cholecalciferol (vitamin D3) 25 mcg (1,000 unit) Tablet
50 mcg PO DAILY
mesalamine 1.2 gram tablet,delayed release (DR/EC)
4.8 g PO DAILY
budesonide 9 mg tablet,delayed and ext.release
9 mg PO DAILY
Held
losartan 100 mg tablet
100 mg PO DAILY
Hold Instructions: Resume on 02/04/24. MAY RESUME AFTER DISCUSSION WITH PCP/CHARGE ATTENDANT IF NEEDED
amlodipine 10 mg tablet
10 mg PO DAILY
Hold Instructions: Resume on 02/04/24. MAY RESUME AFTER DISCUSSION WITH PCP/CHARGE ATTENDANT IF NEEDED
Discontinued
chlorthalidone 25 mg tablet
12.5 mg PO DAILY
Discharge Orders:
Discharge Patient (As Directed); Ordered 01/21/24
Ordered By: Parth Flood
Discharge Date and Time
Discharge Date/Time: 01/21/24 12:08
Print Language: TURKMEN
[2024-01-24 01:02] LABS: Calprotectin, Fecal 103 ug/g (<=49)
== END 2024-01-21 12:08 | disposition home health service (06) | DRG 864 ==
LOC: 4 WEST ACU 22:38
PROVIDERS: Nurse Practitioner Family; ADMITTING PHYSICIAN Hospitalist; ATTENDING PHYSICIAN Hospitalist; EMERGENCY PHYSICIAN Emergency Medicine; FAMILY PHYSICIAN Internal Medicine; OTHER PHYSICIAN Internal Medicine
PROC: 5A09357 Assistance with Respiratory Ventilation, Less than 24 Consecutive Hours, Continuous Positive Airway Pressure (ICD-10-PCS; 2024-01-19)
DX: R50.9 Fever, unspecified (principal); K51.50 Left sided colitis without complications; F81.9 Developmental disorder of scholastic skills, unspecified; I10 Essential (primary) hypertension; J45.30 Mild persistent asthma, uncomplicated; R47.9 Unspecified speech disturbances; R19.03 Right lower quadrant abdominal swelling, mass and lump; R19.7 Diarrhea, unspecified; I95.1 Orthostatic hypotension; E03.9 Hypothyroidism, unspecified; G43.909 Migraine, unspecified, not intractable, without status migrainosus; M48.00 Spinal stenosis, site unspecified; G47.33 Obstructive sleep apnea (adult) (pediatric); E88.01 Alpha-1-antitrypsin deficiency; D64.9 Anemia, unspecified; K59.00 Constipation, unspecified; K44.9 Diaphragmatic hernia without obstruction or gangrene; R16.0 Hepatomegaly, not elsewhere classified; M47.816 Spondylosis without myelopathy or radiculopathy, lumbar region; K38.8 Other specified diseases of appendix; E87.6 Hypokalemia; D12.1 Benign neoplasm of appendix; M10.9 Gout, unspecified; K21.9 Gastro-esophageal reflux disease without esophagitis; Z81.8 Family history of other mental and behavioral disorders; Z82.3 Family history of stroke; Z79.890 Hormone replacement therapy; Z79.51 Long term (current) use of inhaled steroids; Z79.82 Long term (current) use of aspirin; Z11.52 Encounter for screening for COVID-19; Z88.1 Allergy status to other antibiotic agents; Z91.02 Food additives allergy status; Z88.5 Allergy status to narcotic agent; Z88.0 Allergy status to penicillin; Z88.8 Allergy status to other drugs, medicaments and biological substances; Z91.018 Allergy to other foods
CPT/HCPCS: 70450; 71046; 74177; 80048; 80053; 81003; 81015; 82962; 83605; 83993; 84145; 85025; 85027; 85652; 86140; 87040; 87045; 87046; 87070; 87077; 87086; 87324; 87427; 87449; 87502; 87811; 89055; 93005; 94640; 94660; 96365; 96366; 96375; 97162; 97166; 99285; Q9967

== ENCOUNTER → 2024-01-30 11:59 | Outpatient (REF) | payer OTHER, SELFPAY | LOC: RAD 11:59 | PROVIDERS: ATTENDING PHYSICIAN Nurse Practitioner Family | DX: R19.7 Diarrhea, unspecified (principal) | CPT/HCPCS: 74022 ==

== ENCOUNTER 2024-01-31 21:05 | Emergency (ER) | payer OTHER, SELFPAY ==
[2024-01-31 21:14] VITALS: BP 172/89
[2024-01-31 21:29] LABS: % Basophils 0.6 % (0-2); % Eosinophils 2.8 % (0-6); % Immature Granulocytes 0.6 % (0-0.5); % Lymphocytes 17.3 % (20.5-51.1); % Monocytes 5.7 % (1.7-9.3); Absolute Basophils 0.1 10^3/uL (0-0.2); Absolute Eosinophils 0.3 10^3/uL (0-0.7); Absolute Immature Granulocytes 0.1 10^3/uL (0-0.05); Absolute Lymphocytes 1.9 10^3/uL (1.2-3.4); Absolute Monocytes 0.6 10^3/uL (0.1-0.6); Absolute Neutrophils 7.9 10^3/uL (1.4-6.5); Hematocrit 32.6 % (37.0-47.0); Mean Corp Hgb Conc. 33.7 g/dL (33.0-37.0); Mean Corpuscular Hgb 28.4 pg (27.0-31.0); Mean Platelet Volume 9.3 fL (7.4-10.4); Nucleated Red Blood Cells % 0 %; Platelet Count 330 10^3/uL (130-400); Red Blood Cell Count 3.88 10^6/uL (4.20-5.40); Red Cell Dist. Width 15.5 % (11.5-14.5); White Blood Cell Count 10.8 10^3/uL (4.8-10.8)
[2024-01-31 21:51] LABS: ALT (SGPT) 26 U/L (0-35); AST (SGOT) 23 U/L (14-36); Albumin 3.8 g/dl (3.5-5.0); Alkaline Phosphatase 76 U/L (38-126); Blood Urea Nitrogen 19 mg/dl (7-17); Calcium 9.3 mg/dl (8.4-10.2); Carbon Dioxide 32 mmol/L (22-30); Chloride 98 mmol/L (98-107); Glucose 112 mg/dl (70-99); Potassium 3.2 mmol/L (3.5-5.1); Sodium 139 mmol/L (135-145); Total Protein 6.9 g/dl (6.3-8.2); eGFR > 60.00
[2024-01-31 23:29] VITALS: BP 142/68
--- NOTE | 2024-01-31 23:41 | ED.GENMED ---
History of Present Illness
General
Chief Complaint: Abdominal Pain
Source: family (sister)
Exam Limitations: other (Intellectual disability)
Time Seen by Provider: 01/31/24 23:12
Travel History
Have you had any contact with someone who has COVID-19?: No
Do you have any symptoms of coronavirus? Fever > 100 degrees, chills, cough, shortness of breath, sore throat, loss of taste or smell, muscle aches, or headache?: No
History of Present Illness
History of Present Illness:
This is a 68 year old female that is brought in by her sister. Sister state that she has to have her appendix, hysterotomy and possible colon resection. States that she also has a uterine fibroid. States that she saw the surgeon last week and the GI
specialist yesterday. States that she goes between constipation and diarrhea. states that she had an X-ray yesterday and she was told that there was no obstruction and she was started on Miralax. Today she started to c/o lower abd pain and has
vomiting. States that she is concerned about her appendix. States that she had diarrhea yesterday. States that she also has a headache. Denies any fever, chills, chest pain, SOB, dizziness, urinary burning.
Past History
Past History
ED Past Medical History: Asthma, HTN, Hypercholesterolemia, Hypothyroidism, Psychiatric (anxiety, ) and Other (Learning disability, speech impediment, Headaches, Ulcerative colitis)
ED Past Surgical History: Orthopedic (Left shoulder replacement, Right total knee replacement) and Other (cataracts)
Social History
Tobacco: Non-smoker
Alcohol: None
Drug: None
Personal: Single (Lives with her sister)
Living: with family (Sister)
Family History
Family History: Other (Father with coronary disease and CABG, father with carotid endarterectomy and stroke, family history of dementia)
Review of Systems
Review of Systems
Other source history: family
All Other Systems: ROS reviewed and negative except as documented in HPI and ROS
Constitutional: Reports no symptoms; Denies fever or chills
EENT: Reports no symptoms
Respiratory: Reports no symptoms; Denies cough or trouble breathing
Cardiac: Reports no symptoms; Denies chest pain
ABD/GI: Reports abdominal pain, nausea, vomiting and diarrhea (Yesterday)
: Reports no symptoms; Denies dysuria, frequency or urgency
Musculoskeletal: Reports no symptoms
Skin: Reports no symptoms
Neurological: Reports headache; Denies dizzy
Psychiatric: Reports no symptoms
Phy Exam
General Physical Exam
General Presentation: no apparent distress
General age: appears stated age
General Skin: warm and dry
General Habitus: normal
General Mental: usual mental status
General Hydration: appears well hydrated
ENT Exam
ENT Exam: TM's normal, pharynx normal and neck supple
Eye Exam
Eye Exam: EOMI
Cardiovascular Exam
Cardiovascular Exam: regular rate/rhythm and normal peripheral pulses
Pulmonary Exam
Pulmonary Exam: no respiratory distress, chest non tender, no rhonchi, no wheezing, no cough and other (rales noted throughout)
Gastrointestinal Exam
Gastrointestinal Exam: normal bowel sounds, soft, no organomegaly, no pulsatile mass, non distended and tender (right sided lower abd pain)
Musculoskeletal Exam
Musculoskeletal Exam: full ROM and edema (Lower legs +2 )
Skin Exam
Skin Exam: normal color, warm/dry, no rash and no petechia
Psychiatric Exam
Psychiatric Exam: normal mood/affect
Course
Orders/Labs/Results
Orders:
Orders
01/31/24 21:25
Complete Blood Count/With Diff Urgent
Comprehensive Metabolic Panel Urgent
Lipase Urgent
Comment: ADDED
01/31/24 23:40
Ondansetron Injectable [Zofran] 4 mg IV NOW STA
01/31/24 23:41
0.9% Sodium Chloride 500 ml [Nss] 500 ml IV BOLUS
01/31/24 23:45
Urinalysis Reflex To Culture Urgent
Date Specimen was Collected: 02/01/24
Time Specimen was Collected: 00:11
01/31/24 23:51
Add On- LAB Urgent
Tests Added?: lipase
02/01/24 00:10
CT Abd/pelvis W Iv Cont Urgent
Reason For Exam: abd pain
02/01/24 00:12
Urine Microscopic Reflex Cult Urgent
Urine Culture Urgent
[place] Source: U
Specimen Description:
Date Specimen was Collected: 02/01/24
Time Specimen was Collected: 00:11
02/01/24 00:54
Acetaminophen [Tylenol] 650 mg .ROUTE .STK-MED ONE
02/01/24 00:56
Acetaminophen [Tylenol] 650 mg PO NOW STA
Abnormal Lab Results
01/31/24 02/01/24
21:25 00:12
RBC 3.88 L 10^6/uL
(4.20-5.40)
Hgb 11.0 L g/dL
(12.0-16.0)
Hct 32.6 L %
(37.0-47.0)
RDW 15.5 H %
(11.5-14.5)
Abs Immat Gran (auto) 0.1 H 10^3/uL
(0-0.05)
Absolute Neuts (auto) 7.9 H 10^3/uL
(1.4-6.5)
Immature Gran % 0.6 H %
(0-0.5)
Lymphocytes % 17.3 L %
(20.5-51.1)
Potassium 3.2 L mmol/L
(3.5-5.1)
Carbon Dioxide 32 H mmol/L
(22-30)
BUN 19 H mg/dl
(7-17)
Glucose 112 H mg/dl
(70-99)
Leukocyte Esterase Rfl Trace A
(Negative)
Urine WBC (Reflex) 11-15 A /HPF
(0-5)
Urine Bacteria (Reflex) Few A
(Negative)
01/31/24 21:25
01/31/24 21:25
H/H slightly low. Hypokalemia, Carbon dioxide elevtion. Slight Dehydration. Glucose nonfasting.
Vital Signs
Initial and Last Documented VS:
Initial Vital Signs
Temp Pulse Resp BP Pulse Ox
98.1 F 67 18 172/89 99
01/31/24 21:14 01/31/24 21:14 01/31/24 21:14 01/31/24 21:14 01/31/24 21:14
Last Documented Vital Signs
Temp Pulse Resp BP Pulse Ox
98.0 F 56 16 170/93 93
01/31/24 23:29 02/01/24 01:30 02/01/24 01:30 02/01/24 01:00 02/01/24 01:30
MDM/Problems Addressed
Differential Diagnosis Includes:
Appendicitis, Ovarian cyst
MDM/Problems Addressed:
This is a 68 year old female that is brought in by her sister with abd pain and vomiting. states that she is due to have her appendix, Hysterectomy and possible colon resection done. States that today she started with increased abd pain and
vomiting. States that she was concerned about an appendicitis
Will get labs and CT scan.
Back into see patient and sister. Explained that her CT scan is similar to prior. There is a left sided adnexal mass and there is a Mucocele appendix. Patient is going to have surgery for Hysterectomy and appendectomy. Patient has an appointment
with the PCP on Monday. Will give patient a prescription for Zofran. Patient to return with fever, increased or changing abd pain, or any other concerns.
Chronic conditions affecting care:
Intellectually disability
Acute Exacerbation and/or Progression of Chronic Illness:
NA
*Radiology
Radiology exam reviewed: radiology read reviewed (CT night hawk- calcified 7cm adnexal mass is now located in the left. May consider further evaluation with a pelvic ultrasound if there is concern for torsion. May also consider follow-up with
gynecology and/or Pelvic MRI. No bowel obstruction of focal inflammation. No free air or free fluid. ) and all reviewed NAD by ED Provider (CT cont- No hydronephrosis or nephrolithiasis. Similar appearing markedly dilated mid and distal appendix
measuring up to 2.9cm, with calcifications along the wall of the base. Findings remain suggestive of a mucocele of the appendix. )
*Pulse Oximetry
Patient hypoxic: no
*EKG
Interpreted by ED Provider?: NA
Rate: EKG- N/A
*Critical Care Note
Total Time (30-74mins, 75-104mins- exclusive of procedures): Not Applicable
ED Attending Note
-
Portions of this chart may have been created with voice recognition software.� Occasional wrong word or��sound alike� substitutions may have occurred due to the inherent limitations of voice recognition software.
Discharge Plan
Departure
Patient Disposition: Home (Routine Discharge)
Date of Disposition: 02/01/24
Time of Disposition: 02:04
Patient with high blood pressure during this ER visit?: Yes
Condition: Good
Covid-19: Not Applicable
Discharge Problem:
Abdominal pain, Nausea & vomiting
Instructions: Nausea and Vomiting, Adult (DC), Abdominal Pain, BLOOD PRESSURE
Prescriptions:
New
ondansetron 4 mg tablet,disintegrating
4 mg PO Q8H PRN (Reason: nausea and vomiting) Qty: 7 0RF
No Action
levothyroxine 100 MCG tablet
100 mcg PO DAILY
alprazolam 0.25 MG tablet
0.25 mg PO BID
Patient Comments:
01/18/2024: last filled 12/27/23, 60 tabs for 30 days from [facility]
fluticasone propionate 1 SPRAY spray,suspension
1 spray intranasal DAILY
ipratropium-albuterol 3 ML solution for nebulization
3 ml inhalation R BID
Patient Comments:
0.5mg/3mg/3ml
cetirizine 10 MG tablet
10 mg PO DAILY
budesonide 0.5 MG/2 ML suspension for nebulization
0.5 mg inhalation R BID
montelukast 10 MG tablet
10 mg PO DAILY
albuterol sulfate 1 PUFF HFA aerosol inhaler
2 puff inhalation R Q4 PRN (Reason: sob/wheezing)
ascorbic acid (vitamin C) [Vitamin C] 500 MG tablet
1,000 mg PO DAILY Qty: 0
Women's 50 Plus Multivitamin 1 EACH tablet
1 ea PO DAILY
aspirin 81 mg tablet,delayed release (DR/EC)
81 mg PO DAILY
losartan 100 mg tablet
100 mg PO DAILY
Hold Instructions: Resume on 02/04/24. MAY RESUME AFTER DISCUSSION WITH PCP/EARLY CHILDHOOD SPECIAL EDUCATOR IF NEEDED
rosuvastatin 5 mg tablet
5 mg PO HS
metronidazole 1 % gel
1 applic TOPICAL HS
Patient Comments:
01/18/2024: apply under belly and buttocks
nebivolol 2.5 mg tablet
2.5 mg PO DAILY
amlodipine 10 mg tablet
10 mg PO DAILY
Hold Instructions: Resume on 02/04/24. MAY RESUME AFTER DISCUSSION WITH PCP/EARLY CHILDHOOD SPECIAL EDUCATOR IF NEEDED
acetaminophen 325 mg Tablet
650 mg PO Q4HPRN PRN (Reason: fever >/= 100.4F, LOWE,mild pain) Qty: 0 0RF
gabapentin 100 mg capsule
200 mg PO HS
metronidazole 1 % Cream
1 applic TOPICAL DAILY
Patient Comments:
01/18/2024: apply to face
cholecalciferol (vitamin D3) 25 mcg (1,000 unit) Tablet
50 mcg PO DAILY
mesalamine 1.2 gram tablet,delayed release (DR/EC)
4.8 g PO DAILY
budesonide 9 mg tablet,delayed and ext.release
9 mg PO DAILY
polyethylene glycol 3350 [Miralax] 17 gram powder in packet
8.5 g PO DAILY Qty: 30 0RF
Rx Instructions:
HALF CUP DAILY
Referrals:
Dennys Santos MD [Family Provider] - 02/02/24
Activity Restrictions/Additional Instructions:
As discussed, your blood work shows that your potassium is slightly low. You have been given oral potassium here. You are slightly dehydration. Please increase your water intake to 8-8oz glasses daily. Your urine is contaminated. If the culture
would come back positive or infection, you will be called and started on an antibiotics. You have had a prescription for Zofran to help with any nausea/vomiting sent to your Pharmacy. Follow up with the family doctor as scheduled. IF YOU HAVE FEVER,
INCREASED OR CHANGING ABD PAIN, OR YOU HAVE ANY OTHER CONCERNS PLEASE RETURN TO THE EMERGENCY ROOM
Interventions
Interventions:
*General Assessment Last Done: 01/31/24 21:14
TY-Pbjmov-Lgjgvpehzt Assessment Last Done: 01/31/24 23:30
Discharge Date and Time
Print Language: [place]
[2024-02-01] VITALS: BP 186/97
[2024-02-01 00:20] LABS: Urine Albumin Negative (Neg - Trace); Urine Bilirubin Negative (Negative); Urine Character Clear (Clear); Urine Color Yellow; Urine Glucose Negative (Negative); Urine Ketone Negative (Negative); Urine Leukocyte Trace (Negative); Urine Nitrite Negative (Negative); Urine Occult Blood Negative (Negative); Urine Urobilinogen Negative (Neg - 1+); Urine pH 6.5 (5.0-9.0)
[2024-02-01 00:26] LABS: Lipase 176 U/L (23-300)
[2024-02-01] MEDS: ZOFRAN 4 MG IV (00:29)
[2024-02-01] MEDS: NSS 500 IV (00:29)
[2024-02-01 00:51] LABS: Urine Red Blood Cell 0-2 /HPF (0-2); Urine Squamous Cell >30 /LPF (Few)
[2024-02-01 00:52] LABS: Urine Bacteria Few (Negative)
[2024-02-01] MEDS: TYLENOL 650 MG PO (00:57)
[2024-02-01 01:00] VITALS: BP 170/93
[2024-02-01 02:00] VITALS: BP 165/84
[2024-02-01] MEDS: KCL 20 MEQ PO (02:19)
== END 2024-02-01 02:30 | disposition home or self-care (01) ==
LOC: EMR 21:05
PROVIDERS: Clinical Nurse Specialist Family Health; Emergency Medicine; EMERGENCY PHYSICIAN Emergency Medicine; FAMILY PHYSICIAN Internal Medicine
DX: R11.2 Nausea with vomiting, unspecified (principal); R10.30 Lower abdominal pain, unspecified; R51.9 Headache, unspecified; R19.7 Diarrhea, unspecified; E87.6 Hypokalemia; E86.0 Dehydration; D25.9 Leiomyoma of uterus, unspecified; I10 Essential (primary) hypertension; E78.00 Pure hypercholesterolemia, unspecified; J45.909 Unspecified asthma, uncomplicated; F79 Unspecified intellectual disabilities; E03.9 Hypothyroidism, unspecified; F41.9 Anxiety disorder, unspecified; K51.90 Ulcerative colitis, unspecified, without complications; Z96.612 Presence of left artificial shoulder joint; Z96.651 Presence of right artificial knee joint; Z79.82 Long term (current) use of aspirin; Z88.1 Allergy status to other antibiotic agents; Z88.5 Allergy status to narcotic agent; Z88.0 Allergy status to penicillin; Z88.8 Allergy status to other drugs, medicaments and biological substances; Z91.018 Allergy to other foods
CPT/HCPCS: 99285; 96374; 96361 ×2; 74177; 80053; 81003; 81015; 83690; 85025; 87086; Q9967

== ENCOUNTER → 2024-02-21 17:51 | Outpatient (REF) | payer OTHER, SELFPAY | LOC: WDC 17:51 | PROVIDERS: ATTENDING PHYSICIAN Internal Medicine | DX: Z12.31 Encounter for screening mammogram for malignant neoplasm of breast (principal) | CPT/HCPCS: 77063; 77067 ==

== ENCOUNTER 2024-06-12 09:39 | Emergency (ER) | payer OTHER, SELFPAY ==
[2024-06-12 09:44] VITALS: BP 134/90
--- NOTE | 2024-06-12 10:02 | ED.GENMED ---
History of Present Illness
<Ann Hernandez PA-C - Last Filed: 06/12/24 16:35>
General
Chief Complaint: Cough
Source: patient
Exam Limitations: none
Time Seen by Provider: 06/12/24 09:52
Nursing documentation reviewed up to this point in time: agreed with
History of Present Illness
History of Present Illness:
68-year-old female with a past medical history of asthma, intellectual disability, hypothyroidism, presents emergency department today with concerns of worsening cough as well as a rash. Patient present in room with her aunt who reports that
patient started to develop a cough and was coughing up yellow sputum starting around 5 days ago. She initially presented to urgent care where they did a chest x-ray and thought that she had pneumonia in the left lower lobe and started her on
levofloxacin. Patient has been doing DuoNeb treatments at home. Patient reports that since starting the antibiotic on Monday, she had 3 doses and feels like she has not had any improvement. Patient started develop a rash Monday night with is in
the inguinal folds. Patient uses depends chronically. Patient states that the rash is not itchy or painful. Patient denies any intraoral lesions. Patient denies any trouble breathing or chest pain. Patient [place] any sore throat. Patient denies
any nausea, vomiting, abdominal pain.
Past History
<Ann Hernandez PA-C - Last Filed: 06/12/24 16:35>
Past History
ED Past Medical History: Asthma, HTN, Hypercholesterolemia, Hypothyroidism, Psychiatric (anxiety, ) and Other (Learning disability, speech impediment, Headaches, Ulcerative colitis)
ED Past Surgical History: Orthopedic (Left shoulder replacement, Right total knee replacement) and Other (cataracts)
Social History
Tobacco: Non-smoker
Alcohol: None
Drug: None
Personal: Single (Lives with her sister)
Living: with family (Sister)
Family History
Family History: Other (Father with coronary disease and CABG, father with carotid endarterectomy and stroke, family history of dementia)
Review of Systems
<Ann Hernandez PA-C - Last Filed: 06/12/24 16:35>
Review of Systems
All Other Systems: ROS reviewed and negative except as documented in HPI and ROS
Phy Exam
<Ann Hernandez PA-C - Last Filed: 06/12/24 16:35>
Physical Exam
Physical Exam:
General: Patient is well appearing and in no acute distress; non-toxic
Skin: Warm and dry, there is a macular rash within the inguinal folds with satellite lesions noted
Head: Normocephalic, atraumatic
Eyes: Sclera non-icteric. EOMs intact.
Cardiac: Regular rate and rhythm, no murmurs
Peripheral Vascular: No lower extremity swelling or edema
Pulm: Normal respiratory effort, scattered rhonchi heard bilaterally
Neuro: CN II-XII intact, no focal neurologic deficits.
Psychiatric: Appropriate mood and affect.
Course
<Ann Hernandez PA-C - Last Filed: 06/12/24 16:35>
Orders/Labs/Results
Orders:
Orders
06/12/24 10:19
Acetaminophen [Tylenol] 650 mg PO NOW STA
Ipratropium/Albuterol Sulfate [Duoneb] 3 ml INH R NOW STA
CR Chest - 2 Views Urgent
Comment:
Reason For Exam: cough
06/12/24 10:39
Complete Blood Count/With Diff Urgent
Comprehensive Metabolic Panel Urgent
Abnormal Lab Results
06/12/24
10:39
RBC 3.94 L 10^6/uL
(4.20-5.40)
Hgb 11.5 L g/dL
(12.0-16.0)
Hct 33.5 L %
(37.0-47.0)
Abs Immat Gran (auto) 0.1 H 10^3/uL
(0-0.05)
Absolute Neuts (auto) 8.3 H 10^3/uL
(1.4-6.5)
Absolute Monos (auto) 0.7 H 10^3/uL
(0.1-0.6)
Immature Gran % 0.7 H %
(0-0.5)
Neutrophils % 77.2 H %
(42.2-75.2)
Lymphocytes % 15.6 L %
(20.5-51.1)
BUN 23 H mg/dl
(7-17)
Glucose 107 H mg/dl
(70-99)
ALT 47 H U/L
(0-35)
06/12/24 10:39
06/12/24 10:39
Vital Signs
Initial and Last Documented VS:
Initial Vital Signs
Temp Pulse Resp BP Pulse Ox
99.0 F 72 16 134/90 98
06/12/24 09:44 06/12/24 09:44 06/12/24 09:44 06/12/24 09:44 06/12/24 09:44
Last Documented Vital Signs
Temp Pulse Resp BP Pulse Ox
99.0 F 78 18 126/74 99
06/12/24 09:44 06/12/24 12:28 06/12/24 12:28 06/12/24 12:28 06/12/24 12:28
Simonelt;Pawan Duarte DO - Last Filed: 06/12/24 11:01>
Orders/Labs/Results
Orders:
Orders
06/12/24 10:19
Acetaminophen [Tylenol] 650 mg PO NOW STA
Ipratropium/Albuterol Sulfate [Duoneb] 3 ml INH R NOW STA
CR Chest - 2 Views Urgent
Comment:
Reason For Exam: cough
06/12/24 10:39
Complete Blood Count/With Diff Urgent
Comprehensive Metabolic Panel Urgent
Abnormal Lab Results
06/12/24
10:39
RBC 3.94 L 10^6/uL
(4.20-5.40)
Hgb 11.5 L g/dL
(12.0-16.0)
Hct 33.5 L %
(37.0-47.0)
Abs Immat Gran (auto) 0.1 H 10^3/uL
(0-0.05)
Absolute Neuts (auto) 8.3 H 10^3/uL
(1.4-6.5)
Absolute Monos (auto) 0.7 H 10^3/uL
(0.1-0.6)
Immature Gran % 0.7 H %
(0-0.5)
Neutrophils % 77.2 H %
(42.2-75.2)
Lymphocytes % 15.6 L %
(20.5-51.1)
BUN 23 H mg/dl
(7-17)
Glucose 107 H mg/dl
(70-99)
ALT 47 H U/L
(0-35)
06/12/24 10:39
06/12/24 10:39
Vital Signs
Initial and Last Documented VS:
Initial Vital Signs
Temp Pulse Resp BP Pulse Ox
99.0 F 72 16 134/90 98
06/12/24 09:44 06/12/24 09:44 06/12/24 09:44 06/12/24 09:44 06/12/24 09:44
Last Documented Vital Signs
Temp Pulse Resp BP Pulse Ox
99.0 F 78 18 126/74 99
06/12/24 09:44 06/12/24 12:28 06/12/24 12:28 06/12/24 12:28 06/12/24 12:28
<Ann Hernandez PA-C - Last Filed: 06/12/24 16:35>
MDM/Problems Addressed
Differential Diagnosis Includes:
Differentials include acute viral bronchitis, asthma exacerbation, community-acquired pneumonia candidal rash, drug rash
MDM/Problems Addressed:
68-year-old female presents to the emergency department today persistent cough and upper respiratory symptoms since 5 days ago. She was seen by urgent care and diagnosed with pneumonia and started on levofloxacin. She feels as though she is not
improving. She had 3 doses of levofloxacin. She denies chest pain. Does note a mild shortness of breath. Notes yellow sputum production. She also complains of a rash within the inguinal folds. This is not pruritic or painful. On physical
exam, she is well-appearing, she has scattered rhonchi heard throughout but she is not hypoxic. She is afebrile. She has a macular rash with satellite lesions located within the inguinal folds. Her chest x-ray showed no evidence of pneumonia.
Her CMP is unremarkable. Patient feels better after DuoNeb treatment here. I suspect patient is likely experiencing acute viral bronchitis along with candidal infection. Discussed use of nystatin powder powder, this has sent to the pharmacy.
Discussed return precautions, patient stable for discharge.
Chronic conditions affecting care:
intellectual disability, hypertension, hyperlipidemia
<Ann Hernandez PA-C - Last Filed: 06/12/24 16:35>
*Pulse Oximetry
Patient hypoxic: no
*Critical Care Note
Total Time (30-74mins, 75-104mins- exclusive of procedures): Not Applicable
Data Reviewed
Review of Other/Old Records Reveals: Records (Reviewed previous ER physician documentation from 01/31/2024 patient was seen for abdominal pain) and Discharge Summary (Reviewed discharge summary from 01/21/2024 patient was seen for bilateral pneumonia)
Source: patient and records
Prescriptions/Medications Considered But Not Given:
n/a
Further Testing Considered But Not Given:
n/a
<Ann Hernandez PA-C - Last Filed: 06/12/24 16:35>
Patient Management
Escalation/DeEscalation of care consider admission/obs:
admit not indicated, patient stable for discharge
ED Attending Note
<Ann Hernandez PA-C - Last Filed: 06/12/24 16:35>
-
Portions of this chart may have been created with voice recognition software.� Occasional wrong word or��sound alike� substitutions may have occurred due to the inherent limitations of voice recognition software.
<Pawan Duarte DO - Last Filed: 06/12/24 11:01>
ED Attending Note
Patient seen and examined by attending physician: Yes
I performed the substantive portion of visit, reviewed & personally made and approve the management plan that is documented in note by myself or KATH.: Yes
ED Attending Note:
I agree with melinda note
Patient presents with a persistent cough. Patient seen at an urgent care where she was diagnosed with pneumonia. She started Levaquin. Cough has not improved much. She has not had a fever recently. She does not feel particular short of breath.
Patient here with her caregiver. Caregiver also notes a rash in her inguinal region. Also some skin irritation in the left upper back.
General: Awake, Alert, Oriented X3. No acute distress.
Vitals: unremarkable
Head: Atraumatic
Eyes: Pupils equal, EOMI
Throat: Airway intact, no exudates
Neck: Trachea midline
Lungs: Decreased breath sounds bilaterally but no focal sounds
Heart: Regular rate, no murmurs
Abd: Soft, Nontender, No pulsatile mass
Neuro: Nonfocal
Skin: Erythematous, moist rash noted in the intertrigo regions of the abdomen and groin. Area is pruritic. Left upper thoracic back there are some scabbed superficial erosions. There are 3 or 4 in a linear type pattern. Patient states area
itches some. Question recent shingles that is now healing.
Extremities: pulses equal b/l, no edema
Agree with Hope's plan to treat with nebs, obtain imaging and some lab work. Patient is not hypoxic. Unless there are significant findings on x-ray or labs that the patient can be treated as an outpatient. Topical antifungal for her groin rash.
Topical antibiotic ointment for the lesions on her back which I believe should heal over the next week or 2. Follow-up with the primary if they do not heal.
Discharge Plan
Departure
Patient Disposition: Home (Routine Discharge)
Date of Disposition: 06/12/24
Time of Disposition: 12:12
Patient with high blood pressure during this ER visit?: Yes
Condition: Good
Discharge Problem:
Acute bronchitis, Bailey infection
Instructions: Cough, Adult (DC), Fungal Skin Rash
Prescriptions:
New
nystatin 100,000 unit/gram powder
1 applic topical BID Qty: 60 0RF
No Action
levothyroxine 100 MCG tablet
100 mcg PO DAILY
alprazolam 0.25 MG tablet
0.25 mg PO BID
Patient Comments:
01/18/2024: last filled 12/27/23, 60 tabs for 30 days from [facility]
fluticasone propionate 1 SPRAY spray,suspension
1 spray intranasal DAILY
ipratropium-albuterol 3 ML solution for nebulization
3 ml inhalation R BID
Patient Comments:
0.5mg/3mg/3ml
cetirizine 10 MG tablet
10 mg PO DAILY
budesonide 0.5 MG/2 ML suspension for nebulization
0.5 mg inhalation R BID
montelukast 10 MG tablet
10 mg PO DAILY
albuterol sulfate 1 PUFF HFA aerosol inhaler
2 puff inhalation R Q4 PRN (Reason: sob/wheezing)
ascorbic acid (vitamin C) [Vitamin C] 500 MG tablet
1,000 mg PO DAILY Qty: 0
Women's 50 Plus Multivitamin 1 EACH tablet
1 ea PO DAILY
aspirin 81 mg tablet,delayed release (DR/EC)
81 mg PO DAILY
losartan 100 mg tablet
100 mg PO DAILY
rosuvastatin 5 mg tablet
5 mg PO HS
metronidazole 1 % gel
1 applic TOPICAL HS
Patient Comments:
01/18/2024: apply under belly and buttocks
nebivolol 2.5 mg tablet
2.5 mg PO DAILY
amlodipine 10 mg tablet
10 mg PO DAILY
acetaminophen 325 mg Tablet
650 mg PO Q4HPRN PRN (Reason: fever >/= 100.4F, LOWE,mild pain) Qty: 0 0RF
gabapentin 100 mg capsule
200 mg PO HS
metronidazole 1 % Cream
1 applic TOPICAL DAILY
Patient Comments:
01/18/2024: apply to face
cholecalciferol (vitamin D3) 25 mcg (1,000 unit) Tablet
50 mcg PO DAILY
mesalamine 1.2 gram tablet,delayed release (DR/EC)
4.8 g PO DAILY
budesonide 9 mg tablet,delayed and ext.release
9 mg PO DAILY
polyethylene glycol 3350 [Miralax] 17 gram powder in packet
8.5 g PO DAILY Qty: 30 0RF
Rx Instructions:
HALF CUP DAILY
ondansetron 4 mg tablet,disintegrating
4 mg PO Q8H PRN (Reason: nausea and vomiting) Qty: 7 0RF
Referrals:
Dennys Santos MD [Family Provider] -
Activity Restrictions/Additional Instructions:
Nystatin antifungal powder has been sent to your pharmacy. Please apply to the affected area 2-3 times daily until healing is complete.
Your chest x-ray did not show any evidence of pneumonia. Please return to the emergency department should you experience acute worsening of symptoms, shortness of breath, chest pain, intractable fevers, intractable nausea or vomiting, or any signs
or symptoms concerning to you.
Please follow-up with your primary care provider in 1 week.
Interventions
Interventions:
*General Assessment Last Done: 06/12/24 11:00
ED- Fall Risk Assessment Last Done: 06/12/24 11:00
*Nursing Disposition Last Done: 06/12/24 12:30
ED- Pulmonary Assessment Last Done: 06/12/24 11:00
Discharge Date and Time
Discharge Date/Time: 06/12/24 13:03
Print Language: MALAY
[2024-06-12] MEDS: DUONEB 3 ML INH (10:27)
[2024-06-12] MEDS: TYLENOL 650 MG PO (10:28)
[2024-06-12 10:39] VITALS: BMI 30.9
[2024-06-12 10:56] LABS: % Basophils 0.1 % (0-2); % Immature Granulocytes 0.7 % (0-0.5); % Lymphocytes 15.6 % (20.5-51.1); % Monocytes 6.4 % (1.7-9.3); % Neutrophils 77.2 % (42.2-75.2); Absolute Immature Granulocytes 0.1 10^3/uL (0-0.05); Absolute Lymphocytes 1.7 10^3/uL (1.2-3.4); Absolute Monocytes 0.7 10^3/uL (0.1-0.6); Absolute Neutrophils 8.3 10^3/uL (1.4-6.5); Hematocrit 33.5 % (37.0-47.0); Hemoglobin 11.5 g/dL (12.0-16.0); Mean Corp Hgb Conc. 34.3 g/dL (33.0-37.0); Mean Corpuscular Hgb 29.2 pg (27.0-31.0); Mean Platelet Volume 10.2 fL (7.4-10.4); Nucleated Red Blood Cells % 0 %; Platelet Count 227 10^3/uL (130-400); Red Blood Cell Count 3.94 10^6/uL (4.20-5.40); Red Cell Dist. Width 14.3 % (11.5-14.5); White Blood Cell Count 10.8 10^3/uL (4.8-10.8)
[2024-06-12 11:13] LABS: ALT (SGPT) 47 U/L (0-35); AST (SGOT) 35 U/L (14-36); Albumin 4.4 g/dl (3.5-5.0); Alkaline Phosphatase 87 U/L (38-126); Blood Urea Nitrogen 23 mg/dl (7-17); Calcium 9.6 mg/dl (8.4-10.2); Carbon Dioxide 28 mmol/L (22-30); Chloride 101 mmol/L (98-107); Estimated Creatinine Clearance 61 ml/min; Glucose 107 mg/dl (70-99); Potassium 4.5 mmol/L (3.5-5.1); Sodium 141 mmol/L (135-145); Total Bilirubin 0.4 mg/dl (0.2-1.3); Total Protein 7.2 g/dl (6.3-8.2); eGFR > 60.00
[2024-06-12 12:28] VITALS: BP 126/74
== END 2024-06-12 13:03 | disposition home or self-care (01) ==
LOC: EMR 09:39
PROVIDERS: Physician Assistant; EMERGENCY PHYSICIAN Emergency Medicine; FAMILY PHYSICIAN Internal Medicine
DX: J20.9 Acute bronchitis, unspecified (principal); B37.9 Candidiasis, unspecified; I10 Essential (primary) hypertension; E03.9 Hypothyroidism, unspecified; E78.00 Pure hypercholesterolemia, unspecified; F79 Unspecified intellectual disabilities; J45.909 Unspecified asthma, uncomplicated
CPT/HCPCS: 99284; 94640; 71046; 80053; 85025

== ENCOUNTER → 2024-07-16 09:52 | Outpatient (REF) | payer OTHER, SELFPAY | LOC: RST 09:52 | PROVIDERS: ATTENDING PHYSICIAN Nurse Practitioner Adult Health; FAMILY PHYSICIAN Internal Medicine | DX: R13.10 Dysphagia, unspecified (principal) | CPT/HCPCS: 74230; 92611 ==

== ENCOUNTER 2024-11-18 06:26 | Day surgery (SDC) | payer OTHER, SELFPAY | END 2024-11-18 15:16 | disposition home or self-care (01) | LOC: GI 06:26 | PROVIDERS: ATTENDING PHYSICIAN Internal Medicine Gastroenterology | DX: K51.50 Left sided colitis without complications (principal); K64.0 First degree hemorrhoids; K57.30 Diverticulosis of large intestine without perforation or abscess without bleeding; D12.0 Benign neoplasm of cecum; K63.5 Polyp of colon; K63.89 Other specified diseases of intestine | CPT/HCPCS: 45385; 45380; 88305 ==

== ENCOUNTER 2024-12-29 12:35 | Emergency (ER) | payer OTHER, SELFPAY ==
[2024-12-29 12:44] VITALS: BP 167/95
--- NOTE | 2024-12-29 13:29 | ED.MUSCINJ ---
HPI-Injury
General
Chief Complaint: Musculo-Skeletal Complaint
Source: patient
Exam Limitations: none
Time Seen by Provider: 12/29/24 13:28
Nursing documentation reviewed up to this point in time: agreed with
History of Present Illness-Injury
Initial Injury comments:
69-year-old female with history of HTN, HLD, colitis, hypothyroid, intellectual disability, anxiety, left shoulder replacement is here for left shoulder pain. She denies any recollection of overuse or injury. She states she woke with pain in the
left shoulder. She denies chest pain or trouble breathing.
Past History
Past History
ED Past Medical History: Asthma, HTN, Hypercholesterolemia, Hypothyroidism, Psychiatric (anxiety, ) and Other (Learning disability, speech impediment, Headaches, Ulcerative colitis)
ED Past Surgical History: Orthopedic (Left shoulder replacement, Right total knee replacement) and Other (cataracts)
Social History
Tobacco: Non-smoker
Alcohol: None
Drug: None
Personal: Single (Lives with her sister)
Living: with family (Sister)
Family History
Family History: Other (Father with coronary disease and CABG, father with carotid endarterectomy and stroke, family history of dementia)
Review of Systems
Review of Systems
Allergies reviewed?: Yes
All Other Systems: ROS reviewed and negative except as documented in HPI and ROS
Constitutional: Denies fever
Respiratory: Denies trouble breathing
Cardiac: Denies chest pain
ABD/GI: Denies abdominal pain or nausea
Musculoskeletal: Reports other (Back of left shoulder.); Denies neck pain or back pain
Skin: Reports no symptoms
Neurological: Denies weakness or numbness
Phy Exam
Physical Exam
Physical Exam:
GENERAL: No acute distress. A&Ox3.
CONSTITUTIONAL: Afebrile.
EYES: clear, conjunctivae normal
ENMT: moist mucus membranes
RESPIRATORY: Regular respirations, nonlabored, lungs clear.
CARDIOVASCULAR: Regular rate and rhythm, no murmurs, no rubs.
GI: Soft, nontender, normal BS
MUSCULOSKELETAL: Immediately point tender to palpate posterior aspect of left shoulder. She has full range of motion comfortably. Distal neurovascular intact. Moves with ease. Well perfused.
SKIN: Warm, dry, pink
PSYCH: Normal mood and affect. Well kept, interactive and appropriate
NEUROLOGIC: Awake, alert and oriented. No focal neurological deficits
Injury Course
Orders/Labs/Results
Orders:
Orders
12/29/24 12:36
Electrocardiogram (*1) Urgent
Reason for Study: Chest Pain
EKG- Treatment ONCE
12/29/24 13:34
Shoulder, Left, Trauma CR [CR Shoulder, Trauma - Left] Urgent
Comment:
Reason For Exam: pain posterior shoulder, no trauma
Triple Drum Operator consulted with Physician
Triple Drum Operator consulted with physician?: Yes
Name of Physician Consulted: Yoselyn
MDM/Problems Addressed
Differential Diagnosis Includes:
soft tissue injury left shoulder,
MDM/Problems Addressed:
69-year-old female with history of HTN, HLD, colitis, hypothyroid, intellectual disability, anxiety, left shoulder replacement is here for left shoulder pain. She denies any recollection of overuse or injury. She states she woke with pain in the
left shoulder. She denies chest pain or trouble breathing.
Patient has full range of motion of the left arm with no indication of pain. She is point tender to palpate posterior aspect of the shoulder the rest the surrounding area is nontender, there is no redness or swelling.
EKG: NSR
EKG reviewed with Dr. Topete, no change from previous. No CP, SOB, pain reproducible with palpation, no suspicion of cardiac etiology
2:00 PM:
Left shoulder radiology report read: IMPRESSION:
1. Reverse left total shoulder arthroplasty in place without radiographic evidence for acute periprosthetic fracture or hardware loosening.
2. 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
3. 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
*EKG
EKG Intrepretation Date: 12/29/24
Interpretation: abnormal
Rate: normal
Rhythm: sinus
[place]: normal axis
Interval: normal interval
QRS Pattern: normal QRS
Ischemia: non-specific ST changes
*Critical Care Note
Total Time (30-74mins, 75-104mins- exclusive of procedures): Not Applicable
ED Attending Note
-
Portions of this chart may have been created with voice recognition software.� Occasional wrong word or��sound alike� substitutions may have occurred due to the inherent limitations of voice recognition software.
Discharge Plan
Departure
Patient Disposition: Home (Routine Discharge)
Date of Disposition: 12/29/24
Time of Disposition: 14:04
Patient with high blood pressure during this ER visit?: No
Condition: Good
Discharge Problem:
Acute shoulder pain
Instructions: Bursitis
Prescriptions:
No Action
levothyroxine 100 MCG tablet
100 mcg PO DAILY
alprazolam 0.25 MG tablet
0.25 mg PO BID
Patient Comments:
01/18/2024: last filled 12/27/23, 60 tabs for 30 days from [facility]
fluticasone propionate 1 SPRAY spray,suspension
1 spray intranasal DAILY
ipratropium-albuterol 3 ML solution for nebulization
3 ml inhalation R BID
Patient Comments:
0.5mg/3mg/3ml
cetirizine 10 MG tablet
10 mg PO DAILY
budesonide 0.5 MG/2 ML suspension for nebulization
0.5 mg inhalation R BID
montelukast 10 MG tablet
10 mg PO DAILY
albuterol sulfate 1 PUFF HFA aerosol inhaler
2 puff inhalation R Q4 PRN (Reason: sob/wheezing)
ascorbic acid (vitamin C) [Vitamin C] 500 MG tablet
1,000 mg PO DAILY Qty: 0
Women's 50 Plus Multivitamin 1 EACH tablet
1 ea PO DAILY
aspirin 81 mg tablet,delayed release (DR/EC)
81 mg PO DAILY
losartan 100 mg tablet
100 mg PO DAILY
rosuvastatin 5 mg tablet
5 mg PO HS
metronidazole 1 % gel
1 applic TOPICAL HS
Patient Comments:
01/18/2024: apply under belly and buttocks
nebivolol 2.5 mg tablet
2.5 mg PO DAILY
amlodipine 10 mg tablet
10 mg PO DAILY
acetaminophen 325 mg Tablet
650 mg PO Q4HPRN PRN (Reason: fever >/= 100.4F, LOWE,mild pain) Qty: 0 0RF
gabapentin 100 mg capsule
200 mg PO HS
metronidazole 1 % Cream
1 applic TOPICAL DAILY
Patient Comments:
01/18/2024: apply to face
cholecalciferol (vitamin D3) 25 mcg (1,000 unit) Tablet
50 mcg PO DAILY
mesalamine 1.2 gram tablet,delayed release (DR/EC)
4.8 g PO DAILY
budesonide 9 mg tablet,delayed and ext.release
9 mg PO DAILY
polyethylene glycol 3350 [Miralax] 17 gram powder in packet
8.5 g PO DAILY Qty: 30 0RF
Rx Instructions:
HALF CUP DAILY
ondansetron 4 mg tablet,disintegrating
4 mg PO Q8H PRN (Reason: nausea and vomiting) Qty: 7 0RF
nystatin 100,000 unit/gram powder
1 applic topical BID Qty: 60 0RF
Referrals:
Carlo Estrella MD [Active] - As needed
Activity Restrictions/Additional Instructions:
As we discussed, your shoulder x-ray shows nothing worrisome. Ibuprofen 600 mg, every 6 hours as needed for pain. See the orthopedic doctor if your shoulder is not better in 7 to 10 days.
Interventions
Interventions:
*Risk Screen - Suicide Last Done: 12/29/24 12:44
*General Assessment Last Done: 12/29/24 12:44
*Neglect/Abuse Screening Last Done: 12/29/24 12:44
*ED- Fall Risk Assessment Last Done: 12/29/24 14:10
*ED COVID-19 Vaccine History Last Done: 12/29/24 14:10
*Nursing Disposition Last Done: 12/29/24 14:10
ED-Musculoskeletal Assessment Last Done: 12/29/24 14:10
Discharge Date and Time
Discharge Date/Time: 12/29/24 14:10
Print Language: EGYPTIAN
== END 2024-12-29 14:10 | disposition home or self-care (01) ==
LOC: EMR 12:35
PROVIDERS: EMERGENCY PHYSICIAN Emergency Medicine; FAMILY PHYSICIAN Internal Medicine
DX: M25.512 Pain in left shoulder (principal); E03.9 Hypothyroidism, unspecified; E78.00 Pure hypercholesterolemia, unspecified; I10 Essential (primary) hypertension; J45.909 Unspecified asthma, uncomplicated; Z96.612 Presence of left artificial shoulder joint; F79 Unspecified intellectual disabilities
CPT/HCPCS: 99283; 73030; 93005

== ENCOUNTER 2025-01-16 11:08 | Emergency (ER) | payer OTHER, SELFPAY ==
[2025-01-16 11:14] VITALS: BP 171/80
--- NOTE | 2025-01-16 12:11 | ED.GENMED ---
History of Present Illness
General
Chief Complaint: Fall
Source: patient
Exam Limitations: none
Time Seen by Provider: 01/16/25 11:49
Nursing documentation reviewed up to this point in time: agreed with
History of Present Illness
History of Present Illness:
Patient is a 69-year-old female who presents to the ER for evaluation. Patient was at a GI appointment her right knee gave out and she fell face forward hitting her left face and head on the wood floor. She denies loss of consciousness she is not
on blood thinners. She complains of soreness to the left face below the eye. She has been having issues with her right knee giving out recently and seeing Dr. Estrella later this afternoon. She did hit her left knee prior to arrival. She denies
headache, nausea.
Past History
Past History
ED Past Medical History: Asthma, HTN, Hypercholesterolemia, Hypothyroidism, Psychiatric (anxiety, ) and Other (Learning disability, speech impediment, Headaches, Ulcerative colitis)
ED Past Surgical History: Orthopedic (Left shoulder replacement, Right total knee replacement) and Other (cataracts)
Social History
Tobacco: Non-smoker
Alcohol: None
Drug: None
Personal: Single (Lives with her sister)
Living: with family (Sister)
Family History
Family History: Other (Father with coronary disease and CABG, father with carotid endarterectomy and stroke, family history of dementia)
Review of Systems
Review of Systems
Allergies reviewed?: Yes
All Other Systems: ROS reviewed and negative except as documented in HPI and ROS
Constitutional: Reports no symptoms
ABD/GI: Denies nausea or vomiting
Musculoskeletal: Reports other (left knee injury today mildly sore )
Skin: Reports no symptoms
Neurological: Denies dizzy or headache
Psychiatric: Reports no symptoms
Phy Exam
General Physical Exam
General Presentation: well appearing
General age: appears stated age
General Skin: warm and dry
General Habitus: normal
General Mental: alert
General Hydration: appears well hydrated
Eye Exam
Eye Exam: PERRL, EOMI and other (mild tenderness to left face maxilla region no step offs no crepitus no abrasions or ecchymosis )
Eye Exam General: PERRL: bilateral and EOM intact: bilateral
Pupil Exam: Bilateral: round and reactive
Neurological Exam
Neurological Exam: alert and oriented x3
Musculoskeletal Exam
Musculoskeletal Exam: other (Mild ecchymosis to left anterior knee able to flex and extend normally, normal inspection to right knee no bony tenderness able to flex and extend strong distal pulses; no obvious hematoma or injury to head no c spine
tenderness)
Skin Exam
Skin Exam: normal color and warm/dry
Psychiatric Exam
Psychiatric Exam: normal mood/affect
Course
Orders/Labs/Results
Orders:
Orders
01/16/25 12:10
CT Cervical Spine W/o Iv Contr Urgent
Comment:
Reason For Exam: trauma
CT Facial Bones W/o Iv Contras Urgent
Comment:
Reason For Exam: trauma
CT Head W/o Iv Contrast Urgent
Comment:
Reason For Exam: trauma
01/16/25 12:11
Knee, Left 4 or More Views [CR Knee - Left 4 Or More View*] Urgent
Comment:
Reason For Exam: trauma
Knee, Right 4 or More Views [CR Knee- Right 4 Or More View*] Urgent
Comment:
Reason For Exam: trauma
Vital Signs
Initial and Last Documented VS:
Initial Vital Signs
Temp Pulse Resp BP Pulse Ox
98.4 F 64 18 171/80 98
01/16/25 11:14 01/16/25 11:14 01/16/25 11:14 01/16/25 11:14 01/16/25 11:14
Last Documented Vital Signs
Temp Pulse Resp BP Pulse Ox
98.4 F 84 20 159/87 98
01/16/25 11:14 01/16/25 13:45 01/16/25 13:45 01/16/25 13:45 01/16/25 13:45
MDM/Problems Addressed
Differential Diagnosis Includes:
Not limited to facial contusion less likely fracture or intracranial hemorrhage, knee fracture versus contusion
MDM/Problems Addressed:
Patient was a regular GI appointment and her right knee gave out causing her to fall hitting her face on the wood floor. Incidentally she is seen Dr. Estrella today for her right knee which has been giving out recently. She did fall and hit the
left side of her face however has no headache. CT head facial bones and neck all done and negative. No acute findings on the x-rays patient is stable for discharge home with outpatient Ortho follow-up as scheduled today.
*Radiology
Radiology exam reviewed: radiology read reviewed
*Critical Care Note
Total Time (30-74mins, 75-104mins- exclusive of procedures): Not Applicable
ED Attending Note
-
Portions of this chart may have been created with voice recognition software.� Occasional wrong word or��sound alike� substitutions may have occurred due to the inherent limitations of voice recognition software.
Discharge Plan
Departure
Patient Disposition: Home (Routine Discharge)
Date of Disposition: 01/16/25
Time of Disposition: 13:34
Patient with high blood pressure during this ER visit?: Yes
Covid-19: Not Applicable
Discharge Problem:
Head injury, Contusion
Instructions: Head Injury in Adults (DC), Contusion (DC), BLOOD PRESSURE
Prescriptions:
No Action
levothyroxine 100 MCG tablet
100 mcg PO DAILY
alprazolam 0.25 MG tablet
0.25 mg PO BID
Patient Comments:
01/18/2024: last filled 12/27/23, 60 tabs for 30 days from [facility] [employer]
fluticasone propionate 1 SPRAY spray,suspension
1 spray intranasal DAILY
ipratropium-albuterol 3 ML solution for nebulization
3 ml inhalation R BID
Patient Comments:
0.5mg/3mg/3ml
cetirizine 10 MG tablet
10 mg PO DAILY
budesonide 0.5 MG/2 ML suspension for nebulization
0.5 mg inhalation R BID
montelukast 10 MG tablet
10 mg PO DAILY
albuterol sulfate 1 PUFF HFA aerosol inhaler
2 puff inhalation R Q4 PRN (Reason: sob/wheezing)
ascorbic acid (vitamin C) [Vitamin C] 500 MG tablet
1,000 mg PO DAILY Qty: 0
Women's 50 Plus Multivitamin 1 EACH tablet
1 ea PO DAILY
aspirin 81 mg tablet,delayed release (DR/EC)
81 mg PO DAILY
losartan 100 mg tablet
100 mg PO DAILY
rosuvastatin 5 mg tablet
5 mg PO HS
metronidazole 1 % gel
1 applic TOPICAL HS
Patient Comments:
01/18/2024: apply under belly and buttocks
nebivolol 2.5 mg tablet
2.5 mg PO DAILY
amlodipine 10 mg tablet
10 mg PO DAILY
acetaminophen 325 mg Tablet
650 mg PO Q4HPRN PRN (Reason: fever >/= 100.4F, LOWE,mild pain) Qty: 0 0RF
gabapentin 100 mg capsule
200 mg PO HS
metronidazole 1 % Cream
1 applic TOPICAL DAILY
Patient Comments:
01/18/2024: apply to face
cholecalciferol (vitamin D3) 25 mcg (1,000 unit) Tablet
50 mcg PO DAILY
mesalamine 1.2 gram tablet,delayed release (DR/EC)
4.8 g PO DAILY
budesonide 9 mg tablet,delayed and ext.release
9 mg PO DAILY
polyethylene glycol 3350 [Miralax] 17 gram powder in packet
8.5 g PO DAILY Qty: 30 0RF
Rx Instructions:
HALF CUP DAILY
ondansetron 4 mg tablet,disintegrating
4 mg PO Q8H PRN (Reason: nausea and vomiting) Qty: 7 0RF
nystatin 100,000 unit/gram powder
1 applic topical BID Qty: 60 0RF
Referrals:
Dennys Santos MD [Family Provider] -
Activity Restrictions/Additional Instructions:
As discussed your CAT scans were negative for acute injury. Please follow-up with Dr. Estrella as scheduled now. Return if any worsening of symptoms.
Interventions
Interventions:
*Risk Screen - Suicide Last Done: 01/16/25 11:14
*General Assessment Last Done: 01/16/25 11:14
*Neglect/Abuse Screening Last Done: 01/16/25 11:14
*ED- Fall Risk Assessment Last Done: 01/16/25 11:14
*ED COVID-19 Vaccine History Last Done: 01/16/25 11:14
*Nursing Disposition Last Done: 01/16/25 13:45
ED-Musculoskeletal Assessment Last Done: 01/16/25 12:00
ED- Neurological Assessment Last Done: 01/16/25 12:00
ED-Skin Assessment Last Done: 01/16/25 12:00
Discharge Date and Time
Discharge Date/Time: 01/16/25 13:50
Print Language: CHINESE
[2025-01-16 13:45] VITALS: BP 159/87
== END 2025-01-16 13:50 | disposition home or self-care (01) ==
LOC: EMR 11:08
PROVIDERS: EMERGENCY PHYSICIAN Emergency Medicine; FAMILY PHYSICIAN Internal Medicine
DX: S09.90XA Unspecified injury of head, initial encounter (principal); W22.8XXA Striking against or struck by other objects, initial encounter; J45.909 Unspecified asthma, uncomplicated; I10 Essential (primary) hypertension; E78.00 Pure hypercholesterolemia, unspecified; E03.9 Hypothyroidism, unspecified; F41.9 Anxiety disorder, unspecified; Z82.3 Family history of stroke; Z82.49 Family history of ischemic heart disease and other diseases of the circulatory system; Z96.612 Presence of left artificial shoulder joint
CPT/HCPCS: 99283; 70450; 70486; 72125; 73564

== ENCOUNTER → 2025-02-13 08:09 | Outpatient (REF) | payer OTHER, SELFPAY | LOC: PAVMRI 08:09 | PROVIDERS: ATTENDING PHYSICIAN Specialist; FAMILY PHYSICIAN Internal Medicine | DX: M54.2 Cervicalgia (principal) | CPT/HCPCS: 72141 ==